=== PATIENT | female | born 2000 | race Hispanic/Latino ===

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

== ENCOUNTER 2019-11-24 21:06 | Emergency (ER) | payer BC, OTHER ==
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
--- NOTE | 2019-11-25 00:04 | EDPHYS ---
Physician Documentation [facility] Name: Aleena Zhao Age: 19 yrs Sex: Female : 2000 Arrival Date: 11/24/2019 Time: 21:07 Bed 7 Private MD: ED Physician Herrera Davidson HPI: 11/24 23:46 This 19 yrs old Female presents to ER via Ambulatory with complaints of Flu snw Symptoms - 17 wks preg. 23:46 Onset: The symptoms/episode began/occurred suddenly, last night. Associated signs and snw symptoms: Pertinent positives: cough, sore throat. Modifying factors: The patient symptoms are alleviated by nothing. The patient has not experienced similar symptoms in the past, but friend has similar symptoms. It is unknown whether or not the patient has recently seen a physician. significant other with flu last week. Historical: - Allergies: 21:59 No Known Allergies; ea - Home Meds: 21:59 Vitamin Oral [Active]; ea - PMHx: 21:59 Endometrosis; ea - PSHx: 21:59 None; ea - Immunization history:: Adult Immunizations up to date. - Social history:: Smoking status: Patient/guardian denies using tobacco. - Ebola Screening: : Patient denies travel to an Ebola-affected area in the 21 days before illness onset. ROS: 23:44 Eyes: Negative for injury, pain, redness, and discharge, ENT: Negative for injury, snw pain, and discharge, Neck: Negative for injury, pain, and swelling, Cardiovascular: Negative for chest pain, palpitations, and edema, Respiratory: Negative for shortness of breath, cough, wheezing, and pleuritic chest pain, Abdomen/GI: Negative for abdominal pain, nausea, vomiting, diarrhea, and constipation, Back: Negative for injury and pain, : Negative for injury, bleeding, discharge, and swelling, MS/Extremity: Negative for injury and deformity, Skin: Negative for injury, rash, and discoloration, Neuro: Negative for headache, weakness, numbness, tingling, and seizure. 23:44 Constitutional: Positive for body aches, malaise. Exam: 23:42 Head/Face: Normocephalic, atraumatic. Eyes: Pupils equal round and reactive to light, snw extra-ocular motions intact. Lids and lashes normal. Conjunctiva and sclera are non-icteric and not injected. Cornea within normal limits. Periorbital areas with no swelling, redness, or edema. ENT: Nares patent. No nasal discharge, no septal abnormalities noted. Tympanic membranes are normal and external auditory canals are clear. Oropharynx with no redness, swelling, or masses, exudates, or evidence of obstruction, uvula midline. Mucous membranes moist. Neck: Trachea midline, no thyromegaly or masses palpated, and no cervical lymphadenopathy. Supple, full range of motion without nuchal rigidity, or vertebral point tenderness. No Meningismus. Chest/axilla: Normal chest wall appearance and motion. Nontender with no deformity. No lesions are appreciated. Cardiovascular: Regular rate and rhythm with a normal S1 and S2. No gallops, murmurs, or rubs. Normal PMI, no JVD. No pulse deficits. 23:42 Abdomen/GI: Soft, non-tender, with normal bowel sounds. No distension or tympany. No guarding or rebound. No evidence of tenderness throughout. Back: No spinal tenderness. No costovertebral tenderness. Full range of motion. Skin: Warm, dry with normal turgor. Normal color with no rashes, no lesions, and no evidence of cellulitis. MS/ Extremity: Pulses equal, no cyanosis. Neurovascular intact. Full, normal range of motion. Neuro: Awake and alert, GCS 15, oriented to person, place, time, and situation. Cranial nerves II-XII grossly intact. Motor strength 5/5 in all extremities. Sensory grossly intact. Cerebellar exam normal. Normal gait. Psych: Awake, alert, with orientation to person, place and time. Behavior, mood, and affect are within normal limits. 23:42 Constitutional: The patient appears alert, awake, uncomfortable. 23:42 Respiratory: moderate respiratory distress is noted, Respirations: normal, Breath sounds: are clear throughout, bronchitic cough. Vital Signs: 22:01 BP 117 / 63; Pulse 79; Resp 18; Temp 97.8; Pulse Ox 100% ; Weight 78.93 kg; Height 5 ea ft. 3 in. (160.02 cm); 11/25 00:22 BP 125 / 81; Pulse 73; Resp 16; Temp 97.9; Pulse Ox 99% on R/A; Pain 0/10; aa1 11/24 22:01 Body Mass Index 30.82 (78.93 kg, 160.02 cm) ea MDM: 11/24 23:04 Patient medically screened. [facility] 11/25 00:26 Data reviewed: vital signs, nurses notes. Data interpreted: Pulse oximetry: on room air snw is 99 %. Interpretation: normal. Counseling: I had a detailed discussion with the patient and/or guardian regarding: the historical points, exam findings, and any diagnostic results supporting the discharge/admit diagnosis, the presence of at least one elevated blood pressure reading (>120/80) during this emergency department visit, lab results, the need for outpatient follow up, to return to the emergency department if symptoms worsen or persist or if there are any questions or concerns that arise at home. Special discussion: I have referred the patient to see his PCP for further evaluation of high blood pressure. Based on the history and exam findings, there is no indication for further emergent testing or inpatient evaluation. I discussed with the patient/guardian the need to see the primary care provider for further evaluation of the symptoms. 11/24 22:00 Order name: Flu; Complete Time: 23:05 ea 11/24 22:06 Order name: Strep; Complete Time: 00:01 snw 11/24 22:06 Order name: Urine Culture snw 11/24 22:06 Order name: Urine Microscopic Only; Complete Time: 16:56 snw 11/24 23:05 Order name: Urine Dipstick--Ancillary (enter results); Complete Time: 16:56 mw2 11/24 23:05 Order name: Urine --Ancillary (enter results); Complete Time: 16:56 mw2 11/24 22:06 Order name: Urine Test (obtain specimen); Complete Time: 23:06 snw 11/24 22:06 Order name: Urine Dipstick-Ancillary (obtain specimen); Complete Time: 23:06 snw 11/25 00:01 Order name: Throat Culture EDMS Administered Medications: No medications were administered Disposition: 07:53 Co-signature as Attending Physician, Herrera Davidson MD I agree with the assessment and [facility] plan of care. Disposition: 11/25/19 00:02 Discharged to Home. Impression: Acute upper respiratory infection, unspecified. - Condition is Stable. - Discharge Instructions: Upper Respiratory Infection, Adult, Cool Mist Vaporizer, Rehydration, Adult. - Prescriptions for Zyrtec 10 mg Oral Tablet - take 1 tablet by ORAL route once daily As needed; 20 tablet. - Work release form, Medication Reconciliation Form, Thank You Letter, Antibiotic Education, Prescription Opioid Use form. - Follow up: Emergency Department; When: As needed; Reason: Worsening of condition. Follow up: Private Physician; When: 1 - 2 days; Reason: Recheck today's complaints, Continuance of care, Re-evaluation by your physician. Signatures: Dispatcher [employer] Sugey Jamison RN RN aa1 Herrera Davidson MD MD cha Therrien, Shelly, BLACK OFF WORKER-C BLACK OFF WORKER-Csnw Sofia Jett RN RN ea Corrections: (The following items were deleted from the chart) 00:24 00:02 11/25/2019 00:02 Discharged to Home. Impression: Acute upper respiratory aa1 infection, unspecified. Condition is Stable. Forms are Medication Reconciliation Form, Thank You Letter, Antibiotic Education, Prescription Opioid Use. Follow up: Emergency Department; When: As needed; Reason: Worsening of condition. Follow up: Private Physician; When: 1 - 2 days; Reason: Recheck today's complaints, Continuance of care, Re-evaluation by your physician. snw
[2019-11-25 01:34] VITALS: BP 125/81; TEMP 97.9; O2SAT 99
[2019-11-25 01:41] LABS: Urine Bacteria 20-50 /HPF (<20); Urine Culture Reflex Order NOT NEEDED; Urine RBC <5 /HPF (NONE SEEN)
[2019-11-25 01:42] LABS: Urine Blood TRACE (NEG); Urine Glucose NEGATIVE (NEG); Urine Protein NEGATIVE (NEG)
== END 2019-11-25 00:24 | disposition home or self-care (01) ==
LOC: ER 21:06
DX: O26.891 Other specified pregnancy related conditions, first trimester (principal); Z3A.01 Less than 8 weeks gestation of pregnancy
CPT/HCPCS: 81003; 81015; 81025; 87070; 87081; 87086; 87088; 87804; 99283

== ENCOUNTER 2021-08-25 06:12 | Emergency (ER) | payer OTHER ==
[2021-08-25 06:29] LABS: Urine Blood 1+ (Negative); Urine Glucose Negative (Negative); Urine Protein Negative (Negative); Urine Specific Gravity >=1.030 (1.005-1.030); Urine pH 5.5 (5.0-7.0)
[2021-08-25] MEDS ORDERED: NA CHLORIDE 0.9% 1,000 ML ONE (07:05)
[2021-08-25] MEDS ORDERED: ONDANSETRON 4 MG/2 ML VIAL ONE (07:05)
[2021-08-25] MEDS ORDERED: MORPHINE 4 MG/ML SYR ONE (07:06)
[2021-08-25 07:21] LABS: Absolute Lymphocytes (CBC) 2.6 K/uL (0.7-4.9); Basophils % 0.6 % (0-1.3); Hematocrit 38.1 % (36.0-45.0); Lymphocytes % 27.2 % (15.3-44.8); MPV 7.9 fL (7.6-11.3); RBC Red Blood Cell Count 4.03 M/uL (3.86-4.86)
[2021-08-25 07:43] LABS: ALT/SGPT 41 U/L (12-78); Alkaline Phosphatase 121 U/L (45-117); BUN Blood Urea Nitrogen 17 mg/dL (7-18); Bicarbonate 26 mmol/L (21-32); Bilirubin Direct < 0.1 mg/dL (0-0.2); Bilirubin Total 0.2 mg/dL (0.2-1.0); Glucose Level 103 mg/dL (74-106); Lipase 59 U/L (73-393); Protein, Total 7.6 g/dL (6.4-8.2); Sodium Level 140 mmol/L (136-145)
[2021-08-25 07:44] LABS: AST/SGOT 25 U/L (15-37)
--- NOTE | 2021-08-25 08:44 | RAD REPORT ---
EXAM DESCRIPTION: CTAbdomen Pelvis W Contrast - 08/25/2021 8:25 am CLINICAL HISTORY: Abdominal pain. ABD PAIN COMPARISON: No comparisons TECHNIQUE: Biphasic CT imaging of the abdomen and pelvis was performed with 100 ml non-ionic IV cont rast. All CT scans are performed using dose optimization technique as appropriate and may include automated exposure control or mA/KV adjustment according to patient size. FINDINGS: The lung bases are clear. The liver, spleen, pancreas, adrenal glands and kidneys are within normal limits. No bowel obstruction, free air, free fluid or abscess. The distal appendix is hazy and measures to 6 mm. No evidence of significant lymphadenopathy. No suspicious bony findings. IUD is present in the uterus. IMPRESSION: Distal appendix appears hazy and measures up to 6 mm. This is considered within normal r ifeanyi currently but recommend follow-up study in 24-48 hours with oral contrast if the patient symptom ology persists or progresses.
--- NOTE | 2021-08-25 10:00 | RAD REPORT ---
EXAM DESCRIPTION: US - Abdomen Exam Limited - 08/25/2021 7:20 am CLINICAL HISTORY: EPIGASTRIC PAIN COMPARISON: No comparisons FINDINGS: The gallbladder demonstrates no gallstones. No pericholecystic fluid or gallbladder wall t hickening. The common bile duct is normal measuring 3 mm.. The liver demonstrates no findings of intrahepatic biliary dilatation. IMPRESSION: Unremarkable examination.
--- NOTE | 2021-08-25 11:04 | EDPHYS ---
Physician Documentation [facility] Name: Aleena Zhao Age: 21 yrs Sex: Female : 2000 Arrival Date: 08/25/2021 Time: 06:16 Bed 16 Private MD: ED Physician Marcello Grier HPI: 08/25 06:57 This 21 yrs old Female presents to ER via Ambulatory with complaints of pm1 Abdominal Pain, Vomiting. 06:57 The patient presents with abdominal pain in the epigastric area. Onset: The pm1 symptoms/episode began/occurred 4 day(s) ago. The symptoms do not radiate. Associated signs and symptoms: Pertinent positives: nausea and vomiting, Pertinent negatives: chest pain, constipation, diarrhea, dysuria, fever, shortness of breath. The symptoms are described as achy. Modifying factors: The symptoms are alleviated by nothing, the symptoms are aggravated by nothing. Worse at night. Severity of pain: in the emergency department the pain is unchanged. The patient has not experienced similar symptoms in the past. The patient has not recently seen a physician. 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 - Social history:: Smoking status: Patient denies any tobacco usage or history of. ROS: 06:57 Constitutional: Negative for fever, chills, and weight loss, Cardiovascular: Negative pm1 for chest pain, palpitations, and edema, Respiratory: Negative for shortness of breath, cough, wheezing, and pleuritic chest pain. 06:57 Back: Negative for injury and pain, : Negative for injury, bleeding, discharge, and swelling, MS/Extremity: Negative for injury and deformity, Skin: Negative for injury, rash, and discoloration, Neuro: Negative for headache, weakness, numbness, tingling, and seizure. 06:57 Abdomen/GI: Positive for abdominal pain, nausea and vomiting, of the epigastric area, Negative for diarrhea, constipation. 06:57 All other systems are negative. Exam: 06:57 Constitutional: This is a well developed, well nourished patient who is awake, alert, pm1 and in no acute distress. Head/Face: Normocephalic, atraumatic. 06:57 Back: No spinal tenderness. No costovertebral tenderness. Full range of motion. Skin: Warm, dry with normal turgor. Normal color with no rashes, no lesions, and no evidence of cellulitis. MS/ Extremity: Pulses equal, no cyanosis. Neurovascular intact. Full, normal range of motion. 06:57 Eyes: Exam is negative for acute changes, Extraocular movements: intact throughout, Conjunctiva: no acute changes, no injection. 06:57 ENT: Exam is negative for acute changes, Mouth: no acute changes, Lips: normal, moist, Oral mucosa: normal, pink and intact, moist. 06:57 Cardiovascular: Rate: normal, Rhythm: regular, Pulses: no pulse deficits are appreciated, Edema: is not appreciated. 06:57 Respiratory: Exam negative for acute changes, respiratory distress, shortness of breath, Breath sounds: are clear throughout. 06:57 Abdomen/GI: Inspection: abdomen appears normal, Palpation: soft, in all quadrants, mild abdominal tenderness, in the epigastric area and suprapubic area. 06:57 Neuro: Exam negative for acute changes, Orientation: is normal, Mentation: is normal, Motor: is normal, moves all fours. Vital Signs: 06:30 BP 118 / 67 LA (auto/reg); Pulse 57; Resp 19; Temp 97.1; Pulse Ox 100% ; Weight 85.28 sj1 kg; Height 5 ft. 3 in. (160.02 cm); Pain 7/10; 08:31 BP 117 / 68; Pulse 74; Resp 18; Pulse Ox 100% on R/A; es2 10:59 BP 102 / 65; Pulse 77; Resp 18; Pulse Ox 100% on R/A; es2 06:30 Body Mass Index 33.30 (85.28 kg, 160.02 cm) 1 MDM: 06:26 Patient medically screened. pm1 09:06 Data reviewed: radiologic studies, CT scan, I have discussed the patient's pm1 presentation/case with the attending Emergency Department Physician; and as a result, I will pending U/S results, if they are negative I will discharge the patient home to return tomorrow for repeat CT abd pelvis with PO and IV contrast as recommended by radiologist for further evaluation and will educate her on return precautions. 11:01 Data reviewed: vital signs. Data interpreted: Pulse oximetry: on room air is 100 %. pm1 Interpretation: normal. Counseling: I had a detailed discussion with the patient and/or guardian regarding: the historical points, exam findings, and any diagnostic results supporting the discharge/admit diagnosis, lab results, radiology results, to return to the emergency department if symptoms worsen or persist or if there are any questions or concerns that arise at home, Return tomorrow morning for repeat CT with PO contrast. 11:45 ED course: Patient intends to return tomorrow to ER for her CT abdomen pelvis with pm1 contrast study around 9:00 tomorrow unless she returns sooner based on return precautions. 08/25 06:29 Order name: Urine Dipstick-Ancillary; Complete Time: 06:31 EDMS 08/25 06:31 Order name: Basic Metabolic Panel; Complete Time: 07:47 pm1 08/25 06:31 Order name: CBC with Diff; Complete Time: 07:28 pm1 08/25 06:31 Order name: Hepatic Function; Complete Time: 07:47 pm1 08/25 06:31 Order name: Lipase; Complete Time: 07:47 pm1 08/25 06:32 Order name: Urine --Ancillary (enter results); Complete Time: 08:15 eb 08/25 06:31 Order name: IV Saline Lock; Complete Time: 06:57 pm1 08/25 06:31 Order name: Labs collected and sent; Complete Time: 06:57 pm1 08/25 06:31 Order name: Urine Test (obtain specimen); Complete Time: 06:57 pm1 08/25 06:32 Order name: US Abdomen Limited; Complete Time: 10:44 pm1 08/25 06:32 Order name: CT Abd/Pelvis - IV Contrast Only; Complete Time: 08:46 pm1 08/25 06:32 Order name: NPO; Complete Time: 06:57 pm1 Administered Medications: 06:57 Drug: morphine 4 mg Route: IVP; Site: left antecubital; sj1 07:40 Follow up: Response: No adverse reaction es2 06:57 Drug: Zofran (Ondansetron) 4 mg Route: IVP; Site: left antecubital; sj1 07:40 Follow up: Response: No adverse reaction es2 06:57 Drug: NS 0.9% 1000 ml Route: IV; Rate: 1000 ml; Site: left antecubital; sj1 07:41 Follow up: Response: No adverse reaction es2 11:16 Follow up: IV Status: Completed infusion es2 Disposition Summary: 08/25/21 11:02 Discharge Ordered Location: Home pm1 Problem: new pm1 Symptoms: have improved pm1 Condition: Stable pm1 Diagnosis - Abdominal pain, unspecified pm1 Followup: pm1 - With: Emergency Department - When: Tomorrow - Reason: Recheck today's complaints, Continuance of care, Re-evaluation by your physician Followup: pm1 - With: Private Physician - When: 2 - 3 days - Reason: Recheck today's complaints, Continuance of care, Re-evaluation by your physician Discharge Instructions: - Discharge Summary Sheet pm1 - Abdominal Pain, Adult pm1 Forms: - Medication Reconciliation Form pm1 - Thank You Letter pm1 - Antibiotic Education pm1 - Prescription Opioid Use pm1 - Work release form eb Prescriptions: - ondansetron 4 mg Oral tablet,disintegrating - take 1 tablet by ORAL route every 8 hours As needed; 10 tablet; Refills: 0, pm1 Product Selection Permitted - dicyclomine 20 mg Oral Tablet - take 1 tablet by ORAL route every 6 hours As needed; 20 tablet; Refills: 0, pm1 Product Selection Permitted Addendum: 08/29/2021 05:31 Co-signature as Attending Physician, Marcello Grier MD. [facility] Signatures: Dispatcher [employer] EDLeonardo Salas, LORENZO MAINTENANCE INSTRUCTOR pm1 Marcello Grier MD MD 7 Nikki Velázquez RN RN sj1 Rosa Mayo RN RN es2
--- NOTE | 2021-08-25 11:04 | ER ---
Nurse's Notes [facility] Name: Aleena Zhao Age: 21 yrs Sex: Female : 2000 Arrival Date: 08/25/2021 Time: 06:16 Bed 16 Private MD: Diagnosis: Abdominal pain, unspecified Presentation: 08/25 06:30 Chief complaint: Patient states: report abd pain, nausea, vomiting x 4 days, estela at sj1 night. Coronavirus screen: Vaccine status: Patient reports receiving the 1st dose of the Covid vaccine. Ebola Screen: Patient negative for fever greater than or equal to 101.5 degrees Fahrenheit, and additional compatible Ebola Virus Disease symptoms Patient denies exposure to infectious person. Patient denies travel to an Ebola-affected area in the 21 days before illness onset. Initial Sepsis Screen: Does the patient meet any 2 criteria? No. Patient's initial sepsis screen is negative. Does the patient have a suspected source of infection? No. Patient's initial sepsis screen is negative. Risk Assessment: Do you want to hurt yourself or someone else? Patient reports no desire to harm self or others. Onset of symptoms was August 21, 2021. 06:30 Method Of Arrival: Ambulatory [facility] 06:30 Acuity: AME 3 sj1 Triage Assessment: 06:30 General: Appears uncomfortable, Behavior is cooperative, appropriate for age, crying. sj1 Pain: Complains of pain in abdomen Pain radiates to right leg and left leg Pain currently is 7 out of 10 on a pain scale. Quality of pain is described as crampy, sharp, Pain began 4 days ago Is intermittent. EENT: No deficits noted. Neuro: No deficits noted. Cardiovascular: No deficits noted. Respiratory: No deficits noted. GI: Reports upper abdominal pain, nausea, vomiting. 06:30 : No deficits noted. Derm: No deficits noted. Musculoskeletal: No deficits noted. 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 - Social history:: Smoking status: Patient denies any tobacco usage or history of. Screenin:37 Abuse screen: Denies threats or abuse. Denies injuries from another. Nutritional sj1 screening: No deficits noted. Tuberculosis screening: No symptoms or risk factors identified. Fall Risk None identified. Assessment: 06:37 GI: Abd is soft and non tender X 4 quads. sj1 08:05 Reassessment: Pt sleeping. es2 10:20 Reassessment: Patient and/or family updated on plan of care and expected duration. Pain es2 level reassessed. Patient is alert, oriented x 3, equal unlabored respirations, skin warm/dry/pink. General: Appears in no apparent distress. Pain: Complains of pain in abdomen Pain currently is 4 out of 10 on a pain scale. GI: Bowel sounds. Vital Signs: 06:30 BP 118 / 67 LA (auto/reg); Pulse 57; Resp 19; Temp 97.1; Pulse Ox 100% ; Weight 85.28 sj1 kg; Height 5 ft. 3 in. (160.02 cm); Pain 7/10; 08:31 BP 117 / 68; Pulse 74; Resp 18; Pulse Ox 100% on R/A; es2 10:59 BP 102 / 65; Pulse 77; Resp 18; Pulse Ox 100% on R/A; es2 06:30 Body Mass Index 33.30 (85.28 kg, 160.02 cm) sj1 ED Course: 06:16 Patient arrived in ED. wm 06:24 Leonardo Amaro NP is PHCP. pm1 06:24 Marcello Grier MD is Attending Physician. pm1 06:30 Arm band placed on Patient placed in an exam room. sj1 06:32 Triage completed. sj1 06:37 Patient has correct armband on for positive identification. Bed in low position. Call sj1 light in reach. Side rails up X 1. 06:58 Inserted saline lock: 20 gauge in left antecubital area, using aseptic technique. Blood sj1 collected. 07:20 US Abdomen Limited In Process Unspecified. EDMS 07:40 Rosa Mayo RN is Primary Nurse. es2 07:40 Urine --Ancillary (enter results) Sent. es2 07:47 No provider procedures requiring assistance completed. es2 08:25 CT Abd/Pelvis - IV Contrast Only In Process Unspecified. EDMS 11:15 IV discontinued, intact, bleeding controlled, No redness/swelling at site. Pressure es2 dressing applied. Administered Medications: 06:57 Drug: morphine 4 mg Route: IVP; Site: left antecubital; sj1 07:40 Follow up: Response: No adverse reaction es2 06:57 Drug: Zofran (Ondansetron) 4 mg Route: IVP; Site: left antecubital; sj1 07:40 Follow up: Response: No adverse reaction es2 06:57 Drug: NS 0.9% 1000 ml Route: IV; Rate: 1000 ml; Site: left antecubital; sj1 07:41 Follow up: Response: No adverse reaction es2 11:16 Follow up: IV Status: Completed infusion es2 Outcome: 11:02 Discharge ordered by . pm1 11:14 Discharged to home ambulatory. es2 11:14 Condition: stable 11:14 Discharge instructions given to patient, Instructed on discharge instructions, medication usage, Demonstrated understanding of instructions, medications, Prescriptions given X 2. 11:16 Patient left the ED. es2 Signatures: Dispatcher [employer] EDMS Leonardo Amaro NP [employer] pm1 Yari العلي Sade, RN RN sj1 Rosa Mayo RN RN es2
[2021-08-25 11:35] VITALS: TEMP 97.1; O2SAT 100
[2021-08-25 11:38] VITALS: BP 102/65
== END 2021-08-25 11:16 | disposition home or self-care (01) ==
LOC: ER 06:12
DX: R10.9 Unspecified abdominal pain (principal)
CPT/HCPCS: 96361; 85025; 80048; 36415; 81025; 80076; 81003; 83690; 74177; 76705; 96375; 96374; 99284; Q9967; J7030; J2405

== ENCOUNTER 2021-08-26 05:40 | Emergency (ER) | payer OTHER ==
[2021-08-26 06:13] LABS: Basophils % 0.6 % (0-1.3); Hematocrit 38.6 % (36.0-45.0); Lymphocytes % 33.4 % (15.3-44.8); MPV 7.7 fL (7.6-11.3); RBC Red Blood Cell Count 4.08 M/uL (3.86-4.86)
[2021-08-26 06:25] LABS: ALT/SGPT 36 U/L (12-78); AST/SGOT 15 U/L (15-37); Albumin 3.7 g/dL (3.4-5.0); Alkaline Phosphatase 106 U/L (45-117); BUN Blood Urea Nitrogen 15 mg/dL (7-18); Bicarbonate 26 mmol/L (21-32); Bilirubin Direct < 0.1 mg/dL (0-0.2); Bilirubin Total 0.2 mg/dL (0.2-1.0); Glucose Level 109 mg/dL (74-106); Lipase 74 U/L (73-393); Protein, Total 7.1 g/dL (6.4-8.2); Sodium Level 140 mmol/L (136-145)
[2021-08-26 06:32] LABS: Urine Blood Trace-intact (Negative); Urine Glucose Negative (Negative); Urine Protein Negative (Negative); Urine Specific Gravity >=1.030 (1.005-1.030)
[2021-08-26] MEDS ORDERED: ONDANSETRON 4 MG/2 ML VIAL ONE ×2 (06:42→08:18)
[2021-08-26] MEDS ORDERED: NA CHLORIDE 0.9% 1,000 ML ONE (06:42)
[2021-08-26 07:15] LABS: Urine Bacteria <20 /HPF (<20); Urine Mucus 1+ /HPF (NONE SEEN); Urine RBC <5 /HPF (NONE SEEN)
[2021-08-26] MEDS ORDERED: FENTANYL CITR 100 MCG/2 ML ONE (08:13)
--- NOTE | 2021-08-26 08:29 | RAD REPORT ---
EXAM DESCRIPTION: CT - Abdomen Pelvis W Contrast - 08/26/2021 8:14 am CLINICAL HISTORY: ABD PAIN, patient details upper abdominal pain and both right lower quadrant and l eft lower quadrant pain, patient details history of endometriosis and polycystic ovary syndrome COMPARISON: Abdomen Pelvis W Contrast dated 08/25/2021 TECHNIQUE: Biphasic, helical CT imaging of the abdomen and pelvis was performed following 100 ml non -ionic IV contrast. Oral contrast was given. All CT scans are performed using dose optimization technique as appropriate and may include automated exposure control or mA/KV adjustment according to patient size. FINDINGS: No suspicious findings in the lung bases. The liver, spleen, and pancreas show no suspicious findings. Gallbladder and biliary tree are also wi thout suspicious finding. Symmetric renal function is seen with no hydronephrosis or suspicious renal mass. No pyelonephritis o r acute parenchymal process. No bladder abnormalities. No adrenal abnormalities. The appendix remains normal size is 6 mm. Contrast has extended into the base. No periappendiceal str anding or other finding to suspect progressive appendiceal process. Patient does have a few small mes enteric lymph nodes in the right lower quadrant and central abdomen. Stomach, small bowel and colon are otherwise unremarkable. Stool volume in the colon is moderate. No uterine or left ovarian significant finding. Well-positioned IUD is noted. Approximately 2.5 centi meter right ovarian cyst is evident. No cyst rupture or hemorrhage. No endometrioma identified. Endom etriosis can be occult on CT imaging. No free air, free fluid or inflammatory stranding. No hernia, mass or bulky lymphadenopathy. No suspicious bony findings. IMPRESSION: Appendix remains normal size with no new or progressive findings. Appendicitis is not c urrently suspected. Right ovarian cyst is present but no cyst rupture or hemorrhage findings are seen. No endometrioma id entified. Endometriosis can be occult on CT imaging. A few small mesenteric lymph nodes are present and nonspecific.
--- NOTE | 2021-08-26 09:05 | ER ---
Nurse's Notes [facility] Name: Aleena Zhao Age: 21 yrs Sex: Female : 2000 Arrival Date: 08/26/2021 Time: 05:41 Bed 18 Private MD: Diagnosis: Other ovarian cysts;Nonspecific mesenteric lymphadenitis Presentation: 08/26 05:54 Chief complaint: Patient states: Reports upper abdominal pain, RLQ, and LLQ pain, lower lp1 back pain that began about 1 week ago; States seen in ER yesterday and told to return if abdominal pain continued; reports pain and nausea; denies urinary symptoms. Coronavirus screen: At this time, the client does not indicate any symptoms associated with coronavirus-19. Ebola Screen: No symptoms or risks identified at this time. Initial Sepsis Screen: Does the patient meet any 2 criteria? No. Patient's initial sepsis screen is negative. Does the patient have a suspected source of infection? No. Patient's initial sepsis screen is negative. Risk Assessment: Do you want to hurt yourself or someone else? Patient reports no desire to harm self or others. Onset of symptoms was August 26, 2021. 05:54 Method Of Arrival: Ambulatory lp1 05:54 Acuity: AME 3 lp1 Triage Assessment: 06:04 General: Appears in no apparent distress. Behavior is calm, cooperative, appropriate sj1 for age. Pain: Denies pain. Complains of pain in abdomen Pain radiates to back Pain currently is 6 out of 10 on a pain scale. at worst was 10 out of 10 on a pain scale. Quality of pain is described as sharp, shooting. EENT: No deficits noted. Neuro: No deficits noted. Cardiovascular: No deficits noted. Respiratory: No deficits noted. GI: Reports lower abdominal pain, constipation, nausea. : No deficits noted. Derm: No deficits noted. Musculoskeletal: No deficits noted. DIETARY AID: 05:57 LMP N/A - Irregular menses lp1 Historical: - Allergies: 05:56 No Known Allergies; lp1 - Home Meds: 05:56 None [Active]; lp1 - PMHx: 05:56 Endometrosis; lp1 05:56 PCOS; Asthma; lp1 - PSHx: 05:56 None; lp1 - Immunization history:: Adult Immunizations up to date. - Social history:: Smoking status: Patient denies any tobacco usage or history of. Screenin:56 Abuse screen: Denies threats or abuse. Denies injuries from another. Nutritional lp1 screening: No deficits noted. Tuberculosis screening: No symptoms or risk factors identified. Fall Risk None identified. Assessment: 06:05 GI: Abd is soft and non tender X 4 quads. sj1 06:39 Reassessment: ORAL CONTRAST COMPLETED - CT CALLED AND AWARE. sj1 07:29 Reassessment: assumed care of pt resting comfortably in bed, previously medicated. tr6 pending CT scan after PO contrast. will continue to monitor. 09:09 Reassessment: pt reports that she feels much better than she did previously. ISMAEL Amaro tr6 informed pt of all results and POC. Vital Signs: 05:54 BP 108 / 64; Pulse 56; Resp 16; Temp 97.7(TE); Pulse Ox 99% on R/A; Weight 85.28 kg lp1 (R); Height 5 ft. 3 in. (160.02 cm); Pain 6/10; 08:00 BP 119 / 62; Pulse 62; Resp 18; Pulse Ox 100% on R/A; Pain 10/10; tr6 05:54 Body Mass Index 33.30 (85.28 kg, 160.02 cm) lp1 ED Course: 05:41 Patient arrived in ED. wm 05:56 Triage completed. lp1 05:56 Arm band placed on. lp1 05:57 Patient has correct armband on for positive identification. lp1 06:03 Leonardo Amaro NP is PHCP. pm1 06:05 Door closed. Noise minimized. Lights dimmed. Warm blanket given. sj1 06:05 Inserted saline lock: 20 gauge in right forearm, using aseptic technique. Blood sj1 collected. 06:08 Casa Boyce MD is Attending Physician. pm1 06:27 Urine Microscopic Only Sent. sj1 07:13 Griselda Feliz, MIKIE is Primary Nurse. tr6 07:30 No provider procedures requiring assistance completed. tr6 08:[address] via stretcher. tr6 08:14 CT Abd/Pelvis - PO and IV Contrast In Process Unspecified. EDMS 08:19 Patient taken to an exam room. tr6 09:11 IV discontinued, intact, bleeding controlled, No redness/swelling at site. Pressure tr6 dressing applied. Administered Medications: 06:13 Not Given (Patient Refused): morphine 4 mg IVP once; RASS on ADMIN: Combtv4, Very sj1 Agttd3, Agttd2, Rstlss1, AlertClm0, Drwsy-1, Lt Sdtn-2, Mod Sdtn-3, Dp Sdtn-4, UnArsble-5 06:25 Drug: Zofran (Ondansetron) 4 mg Route: IVP; Site: left forearm; sj1 06:25 Drug: NS 0.9% 1000 ml Route: IV; Rate: 1000 ml; Site: right forearm; sj1 08:04 Drug: Zofran (Ondansetron) 4 mg Route: IVP; Site: right forearm; tr6 09:02 Follow up: Response: No adverse reaction tr6 08:05 Drug: fentaNYL (PF) 25 mcg Route: IVP; Site: right forearm; tr6 09:02 Follow up: Response: Pain is decreased tr6 09:09 Drug: Ketorolac 15 mg Route: IVP; Site: right hand; tr6 09:09 Drug: Bentyl (dicyclomine) 20 mg Route: PO; tr6 Outcome: 09:04 Discharge ordered by . pm1 09:09 Discharged to home ambulatory, pt refused wheelchair at this time tr6 09:09 Condition: improved 09:09 Discharge instructions given to patient, Instructed on discharge instructions, follow up and referral plans. medication usage, safety practices, Demonstrated understanding of instructions, follow-up care, medications. 09:21 Patient left the ED. tr6 Signatures: Dispatcher [employer] EDMS Dominga Francis, RN RN lp1 Leonardo Amaro, LORENZO GUSSET FOLDER pm1 Griselda Feliz RN RN tr6 Yari العلي Sade, RN RN sj1 Corrections: (The following items were deleted from the chart) 08:27 06:26 CORONAVIRUS+ drawn and sent. sj1 EDMS
--- NOTE | 2021-08-26 09:05 | EDPHYS ---
Physician Documentation [facility] Name: Aleena Zhao Age: 21 yrs Sex: Female : 2000 Arrival Date: 08/26/2021 Time: 05:41 Bed 18 Private MD: ED Physician Casa Boyce HPI: 08/26 06:09 This 21 yrs old Female presents to ER via Ambulatory with complaints of pm1 Abdominal Pain. 06:09 The patient presents with abdominal pain in the epigastric area, right lower quadrant, pm1 in the left lower quadrant. Onset: The symptoms/episode began/occurred 1 week(s) ago, and became worse yesterday. The symptoms do not radiate. Associated signs and symptoms: Pertinent positives: nausea, vomiting, right flank pain, Pertinent negatives: diarrhea, dysuria, fever. The symptoms are described as achy. Modifying factors: The symptoms are alleviated by nothing, the symptoms are aggravated by nothing. Severity of pain: in the emergency department the pain is unchanged. The patient has not experienced similar symptoms in the past. The patient has been recently seen at the [facility] Emergency Department, yesterday, for similar complaints labs were performed, CT scan was performed, the patient was told to return for a recheck, today. 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 - Social history:: Smoking status: Patient denies any tobacco usage or history of. ROS: 06:09 Constitutional: Negative for fever, chills, and weight loss, Cardiovascular: Negative pm1 for chest pain, palpitations, and edema, Respiratory: Negative for shortness of breath, cough, wheezing, and pleuritic chest pain. 06:09 Back: Negative for injury and pain, MS/Extremity: Negative for injury and deformity, Skin: Negative for injury, rash, and discoloration. 06:09 : Negative for injury, bleeding, discharge, and swelling, Neuro: Negative for headache, weakness, numbness, tingling, and seizure. 06:09 Abdomen/GI: Positive for abdominal pain, nausea and vomiting, Negative for diarrhea, constipation. 06:09 All other systems are negative. Exam: 06:09 Constitutional: This is a well developed, well nourished patient who is awake, alert, pm1 and in no acute distress. Head/Face: Normocephalic, atraumatic. 06:09 Skin: Warm, dry with normal turgor. Normal color with no rashes, no lesions, and no evidence of cellulitis. MS/ Extremity: Pulses equal, no cyanosis. Neurovascular intact. Full, normal range of motion. 06:09 Eyes: Exam is negative for acute changes, Extraocular movements: no acute changes, Conjunctiva: no acute changes, no injection, Sclera: no acute changes, icterus, is not appreciated. 06:09 ENT: Exam is negative for acute changes, Mouth: Lips: normal, moist, Oral mucosa: normal, pink and intact, moist. 06:09 Cardiovascular: Exam negative for acute changes, Rate: normal, Rhythm: regular, Pulses: no pulse deficits are appreciated. 06:09 Respiratory: Exam negative for acute changes, respiratory distress, shortness of breath. 06:09 Abdomen/GI: Inspection: abdomen appears normal, Palpation: soft, in all quadrants, mild abdominal tenderness, in the epigastric area, moderate abdominal tenderness, in the suprapubic area and right lower quadrant. 06:09 Back: pain, that is mild, of the right low back, normal spinal alignment noted. 06:09 Neuro: Exam negative for acute changes, Orientation: is normal, Mentation: is normal, Motor: is normal, moves all fours. Vital Signs: 05:54 BP 108 / 64; Pulse 56; Resp 16; Temp 97.7(TE); Pulse Ox 99% on R/A; Weight 85.28 kg lp1 (R); Height 5 ft. 3 in. (160.02 cm); Pain 6/10; 08:00 BP 119 / 62; Pulse 62; Resp 18; Pulse Ox 100% on R/A; Pain 10/10; tr6 05:54 Body Mass Index 33.30 (85.28 kg, 160.02 cm) lp1 MDM: 06:03 Patient medically screened. pm1 07:04 Data reviewed: vital signs. Data interpreted: Pulse oximetry: on room air is 99 %. pm1 Interpretation: normal. 09:00 Counseling: I had a detailed discussion with the patient and/or guardian regarding: the pm1 historical points, exam findings, and any diagnostic results supporting the discharge/admit diagnosis, lab results, radiology results, the need for outpatient follow up, an OB/Gyne specialist, to return to the emergency department if symptoms worsen or persist or if there are any questions or concerns that arise at home. 09:00 ED course: Patient was prescribed Bentyl yesterday but did not fill it yet. Patient pm1 reports she is not supposed to take NSAIDs because she used too much in the past . Bun/Cr within normal limits here. Will give patient Toradol and Bentyl here prior to discharge. If Bentyl effective she can fill the prescription from yesterday. 09:00 Differential diagnosis: appendicitis, cholecystitis, diverticulitis, non-specific abd pm1 pain, Ovarian cyst. 09:04 ED course: Patient has upcoming appointment with her service member next week. pm1 08/26 05:48 Order name: Basic Metabolic Panel; Complete Time: 06:43 08/26 05:48 Order name: CBC with Diff; Complete Time: 06:16 rn 08/26 05:48 Order name: Hepatic Function; Complete Time: 06:43 rn 08/26 05:48 Order name: Lipase; Complete Time: 06:43 08/26 06:17 Order name: Urine Microscopic Only; Complete Time: 07:23 pm1 08/26 06:05 Order name: CT Abd/Pelvis - PO and IV Contrast; Complete Time: 08:32 pm1 08/26 06:32 Order name: Urine Dipstick-Ancillary; Complete Time: 06:43 EDCO 08/26 06:39 Order name: Urine --Ancillary (enter results) eb 08/26 06:39 Order name: Urine --Ancillary; Complete Time: 07:23 EDCO 08/26 09:19 Order name: SARS-COV-2 RT PCR EDCO 08/26 05:48 Order name: IV Saline Lock; Complete Time: 06:07 rn 08/26 05:48 Order name: Labs collected and sent; Complete Time: 06:07 rn 08/26 06:08 Order name: NPO; Complete Time: 06:26 pm1 08/26 06:17 Order name: Urine Dipstick-Ancillary (obtain specimen); Complete Time: 06:28 pm1 08/26 06:17 Order name: Urine Test (obtain specimen); Complete Time: 06:28 pm1 Administered Medications: 06:13 Not Given (Patient Refused): morphine 4 mg IVP once; RASS on ADMIN: Combtv4, Very sj1 Agttd3, Agttd2, Rstlss1, AlertClm0, Drwsy-1, Lt Sdtn-2, Mod Sdtn-3, Dp Sdtn-4, UnArsble-5 06:25 Drug: Zofran (Ondansetron) 4 mg Route: IVP; Site: left forearm; sj1 06:25 Drug: NS 0.9% 1000 ml Route: IV; Rate: 1000 ml; Site: right forearm; sj1 08:04 Drug: Zofran (Ondansetron) 4 mg Route: IVP; Site: right forearm; tr6 09:02 Follow up: Response: No adverse reaction tr6 08:05 Drug: fentaNYL (PF) 25 mcg Route: IVP; Site: right forearm; tr6 09:02 Follow up: Response: Pain is decreased tr6 09:09 Drug: Ketorolac 15 mg Route: IVP; Site: right hand; tr6 09:09 Drug: Bentyl (dicyclomine) 20 mg Route: PO; tr6 Disposition: 22:24 Co-signature as Attending Physician, Casa Boyce MD I agree with the assessment and rn plan of care. Attestation: The patient's history, exam findings, diagnostics, and a summary of any interventions or procedures was reviewed in detail with Leonardo Amaro NP. Disposition Summary: 08/26/21 09:04 Discharge Ordered Location: Home pm1 Problem: new pm1 Symptoms: have improved pm1 Condition: Stable pm1 Diagnosis - Other ovarian cysts pm1 - Nonspecific mesenteric lymphadenitis pm1 Followup: pm1 - With: Emergency Department - When: As needed - Reason: Worsening of condition Followup: pm1 - With: Private Physician - When: 2 - 3 days - Reason: Recheck today's complaints, Continuance of care, Re-evaluation by your physician Discharge Instructions: - Discharge Summary Sheet pm1 - Ovarian Cyst pm1 - Mesenteric Adenitis, Adult pm1 Forms: - Medication Reconciliation Form pm1 - Thank You Letter pm1 - Antibiotic Education pm1 - Prescription Opioid Use pm1 Signatures: Dispatcher [employer] EDMS Casa Boyce MD MD rn Pena, Laura RN RN lp1 Leonardo Amaro, SIDE SHOW ENTERTAINER SIDE SHOW ENTERTAINER pm1 Griselda Feliz RN RN tr6 Nikki Velázquez RN RN sj1 Corrections: (The following items were deleted from the chart) 08:27 06:17 CORONAVIRUS+MR.LAB.BRZ ordered. EDMS EDMS
[2021-08-26] MEDS ORDERED: KETOROLAC 30 MG/ML INJ ONE (09:29)
[2021-08-26] MEDS ORDERED: DICYCLOMINE HCL 10 MG CAP ONE (09:29)
[2021-08-26 09:41] VITALS: TEMP 97.7
[2021-08-26 09:42] VITALS: BP 119/62; O2SAT 100
== END 2021-08-26 09:21 | disposition home or self-care (01) ==
LOC: ER 05:40
DX: N83.299 Other ovarian cyst, unspecified side (principal); I88.0 Nonspecific mesenteric lymphadenitis; Z20.822 Contact with and (suspected) exposure to COVID-19
CPT/HCPCS: 85025; 80048; 36415; 81025; 80076; 83690; 74177; 99284; U0003; Q9967; J3010; J7030; J2405 ×2; 81003; 81015

== ENCOUNTER 2023-10-20 16:00 | Emergency (ER) | payer OTHER ==
--- OUTSIDE RECORDS SUMMARY | 2023-10-20 16:04 | XMS REPORT | Continuity of Care Document ---
:1999 Author Organization [facility] t Address [address] [place] [address] Care Team Providers Name Role Phone PAM ZARAGOZA Primary Care Physician Unavailable Bruno Alvarenga Attending Clinician Unavailable TIFFANY OLIVO Attending Clinician Unavailable Doctor Unassigned, [place] Attending Clinician Unavailable EVANS GUSMAN Attending Clinician Unavailable EVANS GUSMAN Attending Clinician Unavailable Evans Gusman MD Attending Clinician Tiffany Olivo MD Attending Clinician Ana Talley MD Attending Clinician ANA TALLEY Attending Clinician Unavailable STANISLAV BRENNAN Attending Clinician Unavailable Stanislav Chopra Attending Clinician Delano Wright DO Attending Clinician DELANO WRIGHT Attending Clinician Unavailable ZAK ASIF M.D. Attending Clinician Unavailable OSIRIS OLMOS Attending Clinician Unavailable Bruno Alvarenga Admitting Clinician Unavailable ANU, STANISLAV B Admitting Clinician Unavailable DELANO WRIGHT Admitting Clinician Unavailable Payers Payer Name Policy Type Policy Number Effective Date Expiration Date Pearl mcdowell [facility] [id number] 2021 00:00:00 Problems Condition Condition Condition Status Onset Resolution Last Treating Co mments Source Name Details Category Date Date Treatment Clinician Date Leukorrhea Leukorrhea Disease Active U nivers , not , not 12-31 [place] infective infective Bran ch Dysuria Dysuria Disease Active Univers 1 ity of 00:00: [place] 00 Medical Branch Pelvic Pelvic Disease Active Univers pain pain 12-31 ity of 00:00: [place] 00 Medical Branch Nexplanon Nexplanon Disease Active Uni vers in place in place 07-03 ity of 00:00: [place] 00 Medical Branch Dyspareuni Other Problem [place] a specified OBGYN dyspareuni 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, 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 Ovarian Ovarian Problem [place] dysfunctio Dysfunctio [employer] n n Polycystic PCOS Problem [place] ovaries (polycysti OBGYN c ovarian syndrome) Amenorrhea Amenorrhea Problem P laza OBGYN Intermenst Excessive Problem Pl aza rual and OBGYN bleeding - frequent irregular menstruati on with irregular cycle 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 Endometrio Endometrio Problem [facility] sis sis OBGYN Dysmenorrh Dysmenorrh Problem [facility] ea ea OBGYN Dysfunctio Dysfunctio Problem [facility] nal nal OBGYN uterine Uterine bleeding Bleeding Psychologi Dyspareuni Problem P laza c a not due OBGYN dyspareuni to a a substance or known physiologi madisyn condition Problem Active [facility] consult consult Physici ans Allergies, Adverse Reactions, Alerts Allergy Allergy Status Severity Reaction(s) Onset Inactive Treating Comm ents Source Name Type Date Date Clinician No Known DA Active U 2019-12 [facility] [place] No Known DA Active U 2019-12 [facility] 1-25 [facility] 00 [facility] No Known DA Active U 2019- [facility] Allergie 3-20 [facility] 00 [facility] No Known DA Active U 2019- [facility] Allergie 3-20 [facility]: [facility] 00 [facility] No Known DA Active U 2014-12 [facility] Allergie 2- [facility] 00:[facility]: [facility] 00 [facility] No Known DA Active U 2014-12 [facility] Allergie 2- [facility] 00:[facility]: [facility] 00 [facility] NO KNOWN Drug Active Univers ALLERGIE Class ity of S [facility] [place] [facility] Social History Social Habit Start Date Stop Date Quantity Comments Source Sex Assigned At [facility] YN History of [facility] Tobacco Use Exposure to 2022-10-18 2022-10-28 Not sure [facility]-CoV-2 00:00:00 13:37:00 [facility] (event) [place] Alcohol intake 2022-10-28 2022-10-28 0 /d University 00:00:00 00:00:00 [facility] [place] [facility] Tobacco use and 2022-10-28 2022-10-28 Smokeless tobacco Un iversity of exposure 00:00:00 00:00:00 non-user [facility] [place] [facility] Smoking Status Start Date Stop Date Source Never smoked tobacco [facility] Medications Ordered Filled Start Stop Current Ordering Indication Dosage Frequency Signature Comments Components Source Medication Medication Date Date Medication? Clinician (SIG) Name Name Provera 10 Provera 10 No 1{table QD Provera 10 MG MG 1-13 t_with_ MG 00:00: food} 00 Provera 10 Provera 10 No 1{table QD Provera 10 MG MG 1-13 t_with_ MG 00:00: food} 00 Provera 10 Provera 10 No 1{table QD Provera 10 MG MG 1-13 t_with_ MG 00:00: food} 00 Provera 10 Provera 10 No 1{table QD Provera 10 MG MG 1-13 t_with_ MG 00:00: food} 00 SUMAtriptan 2021-12- No 50mg Take 50 mg Univers 50 mg 1-28 11-28 by mouth ity of tablet 14:18: 00:00 as needed [place] 39 :00 for Medical Migraine. Branch SUMAtriptan 2021-12 No 50mg Take 50 mg Univers 50 mg 1-28 11-28 by mouth ity of tablet 14:18: 00:00 as needed [place] 39 :00 for Medical Migraine. Branch sumatriptan 2021-12 Yes [id number] 100mg Take 1 Univers 100 mg 1-28 tablet by ity of tablet 00:00: mouth as [place] 00 needed for Medical Migraine. Branch sumatriptan 2021-12 Yes [id number] 100mg Take 1 Univers 100 mg 1-28 tablet by ity of tablet 00:00: mouth as [place] 00 needed for Medical Migraine. Branch sumatriptan 2021-12 Yes [id number] 100mg Take 1 Univers 100 mg 1-28 tablet by ity of tablet 00:00: mouth as [place] 00 needed for Medical Migraine. Branch dulaglutide 2021-12 Yes inject Univ ers (TRULICITY) 1-21 under the ity of 0.75 mg/0.5 14:28: skin. [place] [address] Medical Branch SUMAtriptan 2021-12 Yes 50mg Take 50 mg Univers 50 mg 1-21 by mouth ity of tablet 14:28: as needed [place] 44 for Medical Migraine. Branch dulaglutide 2021-12 Yes inject Univ ers (TRULICITY) 1-21 under the ity of 0.75 mg/0.5 14:28: skin. [place] [address] Medical Branch SUMAtriptan 2021-12 Yes 50mg Take 50 mg Univers 50 mg 1-21 by mouth ity of tablet 14:28: as needed [place] 44 for Medical Migraine. Branch dulaglutide 2021-12 Yes inject Univ ers (TRULICITY) 1-21 under the ity of 0.75 mg/0.5 14:28: skin. [place] [address] Medical Branch dulaglutide 2021-12 Yes inject Univ ers (TRULICITY) 1-21 under the ity of 0.75 mg/0.5 14:28: skin. [place] [address] Medical Branch dulaglutide 2021-12 Yes inject Univ ers (TRULICITY) 1-21 under the ity of 0.75 mg/0.5 14:28: skin. [place] [address] Medical Branch NaCl 0.9% 2021- No 1000mL at 999 Uni vers (NS) IV 08-26 mL/hr, ity of infusion 07:45: 07:54 [place] 1,000 mL 00 :00 s, ONCE, 1 Medic al dose, On Branch 08/26/22 at 0245, Routine ketorolac 2021- No 60mg 60 mg, Unive rs (TORADOL) 08-26 Intramuscu ity of injection 07:15: 06:28 lar, ONCE, [place] 60 mg 00 :00 1 dose, On Medical Mon Branch 08/26/22 at 0215, Routine methocarbam 2021- No 1000mg 1,000 mg, Univers oL 08-26 Oral, ity of (ROBAXIN) 06:15: 06:16 ONCE, 1 [place] tablet 00 :00 dose, On Medical 1,000 mg Mon Branch 08/26/22 at 0115, ROSALEE methocarbam 2021-0 Yes [id number] 500mg Take 1 Univers oL 500 mg 9-26 tablet by ity o f tablet 00:00: mouth [place] 00 every 6 Medical (six) Branch hours as needed for Pain (scale 7-10) (MUSCLE SPASM). ketorolac 2021-0 Yes [id number] 10mg Take 1 U nivers 10 mg 9-26 tablet by ity of tablet 00:00: mouth [place] 00 every 6 Medical (six) Branch hours as needed for Pain (scale 7-10). methocarbam 2022-0 Yes [id number] 500mg Take 1 Univers oL 500 mg 9-26 tablet by ity o f tablet 00:00: mouth [place] 00 every 6 Medical (six) Branch hours as needed for Pain (scale 7-10) (MUSCLE SPASM). ketorolac 2022-0 Yes [id number] 10mg Take 1 U nivers 10 mg 9-26 tablet by ity of tablet 00:00: mouth [place] 00 every 6 Medical (six) Branch hours as needed for Pain (scale 7-10). methocarbam 2022-0 Yes [id number] 500mg Take 1 Univers oL 500 mg 9-26 tablet by ity o f tablet 00:00: mouth [place] 00 every 6 Medical (six) Branch hours as needed for Pain (scale 7-10) (MUSCLE SPASM). ketorolac 2022-0 Yes [id number] 10mg Take 1 U nivers 10 mg 9-26 tablet by ity of tablet 00:00: mouth [place] 00 every 6 Medical (six) Branch hours as needed for Pain (scale 7-10). methocarbam 2022-0 Yes [id number] 500mg Take 1 Univers oL 500 mg 9-26 tablet by ity o f tablet 00:00: mouth [place] 00 every 6 Medical (six) Branch hours as needed for Pain (scale 7-10) (MUSCLE SPASM). ketorolac 2022-0 Yes [id number] 10mg Take 1 U nivers 10 mg 9-26 tablet by ity of tablet 00:00: mouth [place] 00 every 6 Medical (six) Branch hours as needed for Pain (scale 7-10). methocarbam 2022-0 Yes [id number] 500mg Take 1 Univers oL 500 mg 9-26 tablet by ity o f tablet 00:00: mouth [place] 00 every 6 Medical (six) Branch hours as needed for Pain (scale 7-10) (MUSCLE SPASM). ketorolac 2022-0 Yes [id number] 10mg Take 1 U nivers 10 mg 9-26 tablet by ity of tablet 00:00: mouth [place] 00 every 6 Medical (six) Branch hours as needed for Pain (scale 7-10). methocarbam 2022-0 Yes [id number] 500mg Take 1 Univers oL 500 mg 9-26 tablet by ity o f tablet 00:00: mouth [place] 00 every 6 Medical (six) Branch hours as needed for Pain (scale 7-10) (MUSCLE SPASM). ketorolac 2022-0 Yes [id number] 10mg Take 1 U nivers 10 mg 9-26 tablet by ity of tablet 00:00: mouth [place] 00 every 6 Medical (six) Branch hours as needed for Pain (scale 7-10). methocarbam 2022-0 Yes [id number] 500mg Take 1 Univers oL 500 mg 9-26 tablet by ity o f tablet 00:00: mouth [place] 00 every 6 Medical (six) Branch hours as needed for Pain (scale 7-10) (MUSCLE SPASM). ketorolac 2022-0 Yes [id number] 10mg Take 1 U nivers 10 mg 9-26 tablet by ity of tablet 00:00: mouth [place] 00 every 6 Medical (six) Branch hours as needed for Pain (scale 7-10). methocarbam 2022-0 Yes [id number] 500mg Take 1 Univers oL 500 mg 9-26 tablet by ity o f tablet 00:00: mouth [place] 00 every 6 Medical (six) Branch hours as needed for Pain (scale 7-10) (MUSCLE SPASM). ketorolac 2-0 Yes [id number] 10mg Take 1 U nivers 10 mg 9-26 tablet by ity of tablet 00:00: mouth [place] 00 every 6 Medical (six) Branch hours as needed for Pain (scale 7-10). methocarbam 2022-0 Yes [id number] 500mg Take 1 Univers oL 500 mg 9-26 tablet by ity o f tablet 00:00: mouth [place] 00 every 6 Medical (six) Branch hours as needed for Pain (scale 7-10) (MUSCLE SPASM). ketorolac 2-0 Yes [id number] 10mg Take 1 U nivers 10 mg 9-26 tablet by ity of tablet 00:00: mouth [place] 00 every 6 Medical (six) Branch hours as needed for Pain (scale 7-10). HYDROcodone 2021- No 1{tbl} 1 tablet, Univers -acetaminop 8 08-05 Oral, ity of hen (NORCO 05:15: 06:29 ONCE, 1 [place] as 5) 5-325 mg 00 :00 dose, On Medi madisyn tablet 1 Fri07/05/22 Branc h tablet at 0015, ROSALEE Cyclobenzap Cyclobenzap 0 No TID Cyclobenza rine HCl 10 rine HCl 10 4-28 fernanda HCl MG MG 00:00: 10 MG 00 Cyclobenzap Cyclobenzap 2021-0 No TID Cyclobenza rine HCl 10 rine HCl 10 4-28 fernanda HCl MG MG 00:00: 10 MG 00 Cyclobenzap Cyclobenzap 2021-0 No TID Cyclobenza rine HCl 10 rine HCl 10 4-28 fernanda HCl MG MG 00:00: 10 MG 00 Cyclobenzap Cyclobenzap 2021-0 No TID Cyclobenza rine HCl 10 rine HCl 10 4-28 fernanda HCl MG MG 00:00: 10 MG 00 ondansetron 2021-0 Yes [id number] 4mg Take 1 Univers 4 mg 3-25 tablet by ity of disintegrat 00:00: mouth [place] ing tablet 00 every 8 Medica l (eight) Branch hours as needed for Nausea and Vomiting (N/V). ondansetron 2-0 Yes [id number] 4mg Take 1 Univers 4 mg 3-25 tablet by ity of disintegrat 00:00: mouth [place] ing tablet 00 every 8 Medica l (eight) Branch hours as needed for Nausea and Vomiting (N/V). ondansetron 2-0 Yes [id number] 4mg Take 1 Univers 4 mg 3-25 tablet by ity of disintegrat 00:00: mouth [place] ing tablet 00 every 8 Medica l (eight) Branch hours as needed for Nausea and Vomiting (N/V). ondansetron 2-0 Yes [id number] 4mg Take 1 Univers 4 mg 3-25 tablet by ity of disintegrat 00:00: mouth [place] ing tablet 00 every 8 Medica l (eight) Branch hours as needed for Nausea and Vomiting (N/V). ondansetron 2-0 Yes [id number] 4mg Take 1 Univers 4 mg 3-25 tablet by ity of disintegrat 00:00: mouth [place] ing tablet 00 every 8 Medica l (eight) Branch hours as needed for Nausea and Vomiting (N/V). ondansetron 2-0 Yes [id number] 4mg Take 1 Univers 4 mg 3-25 tablet by ity of disintegrat 00:00: mouth [place] ing tablet 00 every 8 Medica l (eight) Branch hours as needed for Nausea and Vomiting (N/V). ondansetron 2-0 Yes [id number] 4mg Take 1 Univers 4 mg 3-25 tablet by ity of disintegrat 00:00: mouth [place] ing tablet 00 every 8 Medica l (eight) Branch hours as needed for Nausea and Vomiting (N/V). ondansetron 2-0 Yes [id number] 4mg Take 1 Univers 4 mg 3-25 tablet by ity of disintegrat 00:00: mouth [place] ing tablet 00 every 8 Medica l (eight) Branch hours as needed for Nausea and Vomiting (N/V). ondansetron 2-0 Yes [id number] 4mg Take 1 Univers 4 mg 3-25 tablet by ity of disintegrat 00:00: mouth [place] ing tablet 00 every 8 Medica l (eight) Branch hours as needed for Nausea and Vomiting (N/V). ondansetron Yes [id number] 4mg Take 1 Univers 4 mg 3-25 tablet by ity of disintegrat 00:00: mouth [place] ing tablet 00 every 8 Medica l (eight) Branch hours as needed for Nausea and Vomiting (N/V). sucralfate 2021- No [id number] 1g Take 1 Univers 1 gram 3-25 08-05 tablet by ity of tablet 00:00: 00:00 mouth [place] 00 :00 before Medical meals and Branch at bedtime. dicyclomine 2021- No [id number] 10mg Take 1 Univers (BENTYL) 10 3-25 08-05 capsule by i ty of mg capsule 00:00: 00:00 mouth [place] 00 :00 every 8 Medical (eight) Branch hours as needed for Abdominal pain. Balcoltra Balcoltra 2020-12 No QD Balcoltra 0.1-20 0.1-20 0-22 0.1-20 MG-MCG(21) MG-MCG(21) 00:00: MG-MCG(21) 00 Balcoltra Balcoltra 2020-12 No QD Balcoltra 0.1-20 0.1-20 0-22 0.1-20 MG-MCG(21) MG-MCG(21) 00:00: MG-MCG(21) 00 Balcoltra Balcoltra 2020-12 No QD Balcoltra 0.1-20 0.1-20 0-22 0.1-20 MG-MCG(21) MG-MCG(21) 00:00: MG-MCG(21) 00 Balcoltra Balcoltra 2020-12 No QD Balcoltra 0.1-20 0.1-20 0-22 0.1-20 MG-MCG(21) MG-MCG(21) 00:00: MG-MCG(21) 00 Lo Loestrin Lo Loestrin No 1{table QD Lo Fe 1 MG-10 Fe 1 MG-10 6-29 t} Loestrin MCG / 10 MCG / 10 00:00: Fe 1 MG-10 MCG MCG 00 MCG / 10 MCG Lo Loestrin Lo Loestrin 2021-0 No 1{table QD Lo Fe 1 MG-10 Fe 1 MG-10 6-29 t} Loestrin MCG / 10 MCG / 10 00:00: Fe 1 MG-10 MCG MCG 00 MCG / 10 MCG Lo Loestrin Lo Loestrin 2021-0 No 1{table QD Lo Fe 1 MG-10 Fe 1 MG-10 6-29 t} Loestrin MCG / 10 MCG / 10 00:00: Fe 1 MG-10 MCG MCG 00 MCG / 10 MCG Lo Loestrin Lo Loestrin 2021-0 No 1{table QD Lo Fe 1 MG-10 Fe 1 MG-10 6-29 t} Loestrin MCG / 10 MCG / 10 00:00: Fe 1 MG-10 MCG MCG 00 MCG / 10 MCG Adipex-P Adipex-P 2021-0 No 1{capsu QD Adipex-P 37.5 MG 37.5 MG 5-06 le} 37.5 MG 00:00: 00 Adipex-P Adipex-P 2021-0 No 1{capsu QD Adipex-P 37.5 MG 37.5 MG 5-06 le} 37.5 MG 00:00: 00 Adipex-P Adipex-P 2021-0 No 1{capsu QD Adipex-P 37.5 MG 37.5 MG 5-06 le} 37.5 MG 00:00: 00 Adipex-P Adipex-P 2021-0 No 1{capsu QD Adipex-P 37.5 MG 37.5 MG 5-06 le} 37.5 MG 00:00: 00 Flagyl 500 Flagyl 500 2021-0 No 1{table BID Flagyl 500 MG MG 5-03 t} MG 00:00: 00 Flagyl 500 Flagyl 500 2021-0 No 1{table BID Flagyl 500 MG MG 5-03 t} MG 00:00: 00 Flagyl 500 Flagyl 500 2021-0 No 1{table BID Flagyl 500 MG MG 5-03 t} MG 00:00: 00 Flagyl 500 Flagyl 500 2021-0 No 1{table BID Flagyl 500 MG MG 5-03 t} MG 00:00: 00 Acetaminoph Acetaminoph 2020-1 No 1{table QID Acetaminop en-Codeine en-Codeine 1-23 t_as_ne hen-Codein #3 300-30 #3 300-30 00:00: eded} e #3 MG MG 00 300-30 MG Ibuprofen Ibuprofen 2019-12 No TID Ibuprofen 800 MG 800 MG 1-23 800 MG 00:00: 00 Acetaminoph Acetaminoph 2019- No 1{table QID Acetaminop en-Codeine en-Codeine 1-23 t_as_ne hen-Codein #3 300-30 #3 300-30 00:00: eded} e #3 MG MG 00 300-30 MG Ibuprofen Ibuprofen 2019-12 No TID Ibuprofen 800 MG 800 MG 1-23 800 MG 00:00: 00 Acetaminoph Acetaminoph 2019-12 No 1{table QID Acetaminop en-Codeine en-Codeine 1-23 t_as_ne hen-Codein #3 300-30 #3 300-30 00:00: eded} e #3 MG MG 00 300-30 MG Ibuprofen Ibuprofen 2019-12 No TID Ibuprofen 800 MG 800 MG 1-23 800 MG 00:00: 00 Ibuprofen Ibuprofen 2019-12 No TID Ibuprofen 800 MG 800 MG 1-23 800 MG 00:00: 00 Acetaminoph Acetaminoph 2019-12 No 1{table QID Acetaminop en-Codeine en-Codeine 1-23 t_as_ne hen-Codein #3 300-30 #3 300-30 00:00: eded} e #3 MG MG 00 300-30 MG Zoloft 50 Zoloft 50 2019-12 No 1{table QD Zoloft 50 MG MG 0-23 t} MG 00:00: 00 Zoloft 50 Zoloft 50 2019-12 No 1{table QD Zoloft 50 MG MG 0-23 t} MG 00:00: 00 Zoloft 50 Zoloft 50 2019- No 1{table QD Zoloft 50 MG MG 0-23 t} MG 00:00: 00 Zoloft 50 Zoloft 50 2019- No 1{table QD Zoloft 50 MG MG 0-23 t} MG 00:00: 00 Macrobid Macrobid 2019- No 1{capsu BID Macrobid 100 MG 100 MG 0-08 le} 100 MG 00:00: 00 Macrobid Macrobid 2020-1 No 1{capsu BID Macrobid 100 MG 100 MG 0-08 le} 100 MG 00:00: 00 Macrobid Macrobid 2020-1 No 1{capsu BID Macrobid 100 MG 100 MG 0-08 le} 100 MG 00:00: 00 Macrobid Macrobid 2020-1 No 1{capsu BID Macrobid 100 MG 100 MG 0-08 le} 100 MG 00:00: 00 Pepcid 20 Pepcid 20 2020-0 No BID Pepcid 20 MG MG 5-05 MG 00:00: 00 Pepcid 20 Pepcid 20 2020-0 No BID Pepcid 20 MG MG 5-05 MG 00:00: 00 Pepcid 20 Pepcid 20 2020-0 No BID Pepcid 20 MG MG 5-05 MG 00:00: 00 Pepcid 20 Pepcid 20 2020-0 No BID Pepcid 20 MG MG 5-05 MG 00:00: 00 Flagyl 500 Flagyl 500 2020-0 No 1{table BID Flagyl 500 MG MG 4-28 t} MG 00:00: 00 Flagyl 500 Flagyl 500 2020-0 No 1{table BID Flagyl 500 MG MG 4-28 t} MG 00:00: 00 Flagyl 500 Flagyl 500 2020-0 No 1{table BID Flagyl 500 MG MG 4-28 t} MG 00:00: 00 Flagyl 500 Flagyl 500 2020-0 No 1{table BID Flagyl 500 MG MG 4-28 t} MG 00:00: 00 CitraNatal CitraNatal 2018- No CitraNatal [place] 27 12-22 [place] mg iron-1 mg iron-1 00:00: mg iron-1 mg -50 mg -50 00 mg -50 mg-260 mg mg-260 mg mg-260 mg CitraNatal CitraNatal 2018- No CitraNatal [place] 27 12-22 [place] 27 mg iron-1 mg iron-1 00:00: mg iron-1 mg -50 mg -50 00 mg -50 mg-260 mg mg-260 mg mg-260 mg CitraNatal CitraNatal 2018-12 No CitraNatal [place] 27 12-22 [place] 27 mg iron-1 mg iron-1 00:00: mg iron-1 mg -50 mg -50 00 mg -50 mg-260 mg mg-260 mg mg-260 mg CitraNatal CitraNatal 2018-12 No CitraNatal [place] 27 1-22 [place] 27 mg iron-1 mg iron-1 00:00: mg iron-1 mg -50 mg -50 00 mg -50 mg-260 mg mg-260 mg mg-260 mg Prometrium Prometrium 2018-12 No Prometrium 200 MG 200 MG 0-25 200 MG 00:00: [facility]-12 No Bonjesta 20-20 mg 20-20 mg 0-25 20-20 mg 00:00: 00 Promethazin Promethazin 2018-12 No Promethazi e HCl 25 MG e HCl 25 MG 0-25 ne HCl 25 00:00: MG 00 Prometrium Prometrium 2018-12 No Prometrium 200 MG 200 MG 0-25 200 MG 00:00: 00 [facility]12 No Bonjesta 20-20 mg 20-20 mg 0-25 20-20 mg 00:00: 00 Promethazin Promethazin 2018-12 No Promethazi e HCl 25 MG e HCl 25 MG 0-25 ne HCl 25 00:00: MG 00 Prometrium Prometrium 2018-12 No Prometrium 200 MG 200 MG 0-25 200 MG 00:00: 00 [facility] 2018-12 No Bonjesta 20-20 mg 20-20 mg 0-25 20-20 mg 00:00: 00 Promethazin Promethazin 2018-12 No Promethazi e HCl 25 MG e HCl 25 MG 0-25 ne HCl 25 00:00: MG 00 Prometrium Prometrium 2018-12 No Prometrium 200 MG 200 MG 0-25 200 MG 00:00: 00 Promethazin Promethazin 2018-12 No Promethazi e HCl 25 MG e HCl 25 MG 0-25 ne HCl 25 00:00: MG 00 [facility] 2018-12 No Bonjesta 20-20 mg 20-20 mg 0-25 20-20 mg 00:00: 00 RhoGAM RhoGAM No RhoGAM Ultra-Filte Ultra-Filte Ultra-Filt red Plus red Plus ered Plus 1500 UNIT 1500 UNIT 1500 UNIT Lo Loestrin Lo Loestrin No Lo Fe Fe Loestrin Fe Liletta Liletta No Liletta Pantoprazol Pantoprazol No 1{table QD Pantoprazo e Sodium 40 e Sodium 40 t} le Sodium MG MG 40 MG Trulicity Trulicity No Trulicity Wellbutrin Wellbutrin No Wellbutrin Zofran Zofran No Zofran Lo Loestrin Lo Loestrin No Lo Fe Fe Loestrin Fe Trulicity Trulicity No Trulicity Pantoprazol Pantoprazol No 1{table QD Pantoprazo e Sodium 40 e Sodium 40 t} le Sodium MG MG 40 MG Wellbutrin Wellbutrin No Wellbutrin RhoGAM RhoGAM No RhoGAM Ultra-Filte Ultra-Filte Ultra-Filt red Plus red Plus ered Plus 1500 UNIT 1500 UNIT 1500 UNIT Liletta Saraetta No Liletta Lo Loestrin Lo Loestrin No Lo Fe Fe Loestrin Fe Trulicity Trulicity No Trulicity Pantoprazol Pantoprazol No 1{table QD Pantoprazo e Sodium 40 e Sodium 40 t} le Sodium MG MG 40 MG Wellbutrin Wellbutrin No Wellbutrin RhoGAM RhoGAM No RhoGAM Ultra-Filte Ultra-Filte Ultra-Filt red Plus red Plus ered Plus 1500 UNIT 1500 UNIT 1500 UNIT Kristen Peterson No Liletta Trulicity Trulicity No Trulicity Wellbutrin Wellbutrin No Wellbutrin RhoGAM RhoGAM No RhoGAM Ultra-Filte Ultra-Filte Ultra-Filt red Plus red Plus ered Plus 1500 UNIT 1500 UNIT 1500 UNIT Lo Loestrin Lo Loestrin No Lo Fe Fe Loestrin Fe Pantoprazol Pantoprazol No 1{table QD Pantoprazo e Sodium 40 e Sodium 40 t} le Sodium MG MG 40 MG Liletta Liletta No Sarasebas Vital Signs Vital Name Observation Time Observation Value Comments Source weight 2023-09-11 15:15:00 178 [lb_av] [facility] [employer] bmi 2023-09-11 15:15:00 31.53 kg/m2 [place] [employer] height 2023-09-11 15:15:00 63 [in_i] [facility] [employer] blood pressure 2023-09-11 15:15:00 114 mm[Hg] [facility] systolic blood pressure 2023-09-11 15:15:00 76 mm[Hg] [facility] diastolic weight 2023-01-21 14:15:00 182 [lb_av] [place] [employer] bmi 2023-01-21 14:15:00 32.24 kg/m2 [facility] [place] [employer] height 2023-01-21 14:15:00 63 [in_i] [facility] [employer] blood pressure 2023-01-21 14:15:00 110 mm[Hg] [facility] systolic blood pressure 2023-01-21 14:15:00 74 mm[Hg] [facility] diastolic weight 2022-12-13 09:00:00 190 [lb_av] [facility] [place] [employer] bmi 2022-12-13 09:00:00 33.65 kg/m2 [place] [employer] height 2022-12-13 09:00:00 63 [in_i] [facility] [employer] blood pressure 2022-12-13 09:00:00 117 mm[Hg] [facility] systolic blood pressure 2022-12-13 09:00:00 82 mm[Hg] [facility] diastolic Systolic blood 2022-10-28 19:54:00 108 mm[Hg] [facility] Diastolic blood 2022-10-28 19:54:00 74 mm[Hg] [facility] Heart rate 2022-10-28 19:54:00 55 [facility] 2022-10-28 19:54:00 160 cm [facility] Body weight 2022-10-28 19:54:00 87.998 [facility] BMI 2022-10-28 19:54:00 34.37 kg/m2 [facility] Oxygen saturation in 2022-10-28 19:54:00 96 /min [facility] Arterial blood by [facility] Pulse oximetry Branch Systolic blood 2022-10-21 20:45:00 113 mm[Hg] Univer sity of pressure [facility] [place] [facility] Diastolic blood 2022-10-21 20:45:00 73 mm[Hg] [facility] Heart rate 2022-10-21 20:45:00 68 /min [facility] [place] [facility] Oxygen saturation in 2022-10-21 20:45:00 100 /min University of Arterial blood by [place] [employer] madisyn Pulse oximetry Branch Body weight 2022-10-21 20:39:00 89.767 kg [facility] [place] [facility] BMI 2022-10-21 20:39:00 35.06 kg/m2 [facility] [place] [facility] Body temperature 2022-10-21 20:31:00 36.67 Karli [facility] [place] [facility] Respiratory rate 2022-10-21 20:31:00 17 /min [facility] [place] [facility] Body height 2022-10-21 20:31:00 160 cm [facility] [place] [facility] Systolic blood 2022-08-26 07:00:00 108 mm[Hg] Univer sity of pressure [place] [facility] Diastolic blood 2022-08-26 07:00:00 72 mm[Hg] Unive rsity of pressure [place] [facility] Heart rate 2022-08-26 07:00:00 67 /min [facility] [place] [facility] Respiratory rate 2022-08-26 07:00:00 16 /min [facility] [place] [facility] Oxygen saturation in 2022-08-26 07:00:00 98 /min [facility] Arterial blood by [facility] madisyn Pulse oximetry Branch Body temperature 2022-08-26 05:32:00 36.67 Karli [facility] [place] [facility] Body height 2022-08-26 05:32:00 160 cm [facility] Body weight 2022-08-26 05:32:00 90.719 kg [facility] [place] [facility] BMI 2022-08-26 05:32:00 35.43 kg/m2 [facility] Systolic blood 2022-07-05 05:02:00 115 mm[Hg] [facility] [place] [facility] Diastolic blood 2022-07-05 05:02:00 68 mm[Hg] [facility] [place] [facility] Heart rate 2022-07-05 05:02:00 77 /min [facility] Body temperature 2022-07-05 05:02:00 37.28 Karli [facility] [place] [facility] Respiratory rate 2022-07-05 05:02:00 18 /min [facility] [place] [facility] Body height 2022-07-05 05:02:00 160 cm [facility] Body weight 2022-07-05 05:02:00 88.451 kg [facility] BMI 2022-07-05 05:02:00 34.54 kg/m2 [facility] Oxygen saturation in 2022-07-05 05:02:00 98 /min [facility] Arterial blood by [facility] Pulse oximetry Branch Procedures Procedure Date / Time Performing Clinician Source Performed INSURANCE CORRESPONDENCE 2022-11-05 06:01:00 Doctor Taty, [facility] Name [facility] [place] ASSIGNMENT OF BENEFITS 2022-10-21 20:05:08 Doctor Taty, [facility] Name Medical Branch REFERRAL- 2022-10-10 06:01:00 Doctor Taty, [facility] REQUEST/RESPONSE [place] [facility] REFERRAL- 2022-09-30 05:01:00 Doctor Taty, [facility] REQUEST/RESPONSE [place] [facility] [place] TROPONIN I 2022-08-26 06:54:00 Ana Talley [facility] COMP. METABOLIC PANEL 2022-08-26 06:54:00 Ana Talley [facility] ([id number]) [facility] CBC WITH DIFF 2022-08-26 06:54:00 Ana Talley [facility] POCT GLUCOSE (AUTOMATED) 2022-08-26 06:29:00 Ana Talley [facility] POCT TEST 2022-08-26 06:01:00 Ana Talley [facility] CONSENT/REFUSAL FOR 2022-08-26 05:27:18 Doctor Taty [facility] DIAGNOSIS AND TREATMENT [facility] [place] XR HUMERUS 2 VW LEFT 2022-07-05 05:43:[address] [facility] XR SHOULDER 2+ VW LEFT 2022-07-05 05:43:33 Stanislav [facility] LUMBAR SPINE WO 2022-07-05 05:38:10 Stanislav Brennan [facility] CONTRAST [facility] POCT TEST 2022-07-05 05:25:00 Stanislav Brennan kiki [facility] [id number] 2020-04-22 [id number] 2020-04-22 00:00:00 [facility] Encounters Start End Encounter Admission Attending Care Care Encounter Source Date/Time Date/Time Type Type Clinicians Facility Department ID 2023-09-09 Outpatient PLZOBG PLZOBG [place] 08:07:00 1010 OBGYN 2022-12-13 Outpatient PLZOBG PLZOBG [id number] [place] 09:04:03 0113 OBGYN 2020-10-25 Inpatient EL Bruno Alvarenga [facility] OUTD [id number] [facility] 13:00:00 26 [facility] [place] 2020-05-05 Inpatient EL ZeBruno johnson [facility] LD [id number] [facility] 09:24:00 98 [facility] [place] 2020-04-21 Inpatient ZeidBruno [facility] FANNY [id number] [facility] 06:33:00 50 [facility] [place] 2020-03-01 Inpatient EL ZeidBruno [facility] OBOP [id number] [facility] 00:10:00 52 [facility] [place] 2020-02-18 Inpatient EL ZeidBruno [facility] OBOP [id number] [facility] 13:39:00 22 [facility] [place] 2020-02-02 Inpatient ZeidBruno [facility] FANNY [id number] [facility] 16:02:00 75 [facility] [place] 2023-09-11 2023-09-11 Office PLZOBG PLZOBG [id number] [place] 00:00:00 00:00:00 Visit, Est OBG YN Pt., Level 3 2023-01-21 2023-01-21 (ESTPTGYN) PLZOBG PLZOBG [id number] [place] 00:00:00 00:00:00 Establishe OBG YN d Patient Student Outreach Coordinator 2023-01-17 2023-01-17 (TEL) PLZOBG PLZOBG [id number] [place] 00:00:00 00:00:00 OBGYN 2022-12-13 2022-12-13 (ESTPTGYN) PLZOBG PLZOBG [id number] [place] 00:00:00 00:00:00 Dago JACKSONG YN d Patient Student Outreach Coordinator 2022-11-12 2022-11-12 Outpatient R HANS [facility] [id number] Univers 16:00:00 16:00:00 TIFFANY ott o f [facility] 2022-11-05 2022-11-05 Orders Doctor NEIL [id number] Univers 00:00:00 00:00:00 Only Unassigned, MAYRA 350.1.13.[address] [facility] 4.2.7.2.686 Vaibhav as [id number] [address] 2022-10-28 2022-10-28 Outpatient EVANS BROCK [facility] [id number] Univers 13:40:00 14:40:00 EVANS GUSMAN ity [facility] 2022-10-28 2022-10-28 Office [facility] 1.2.840.114 [id number] Univers 13:40:00 14:40:00 Visit [facility] 350.1.13.10 ity [facility] 4.2.7.2.686 Vaibhav as VINNIE?BLEA [phone] Nm dical [facility] [address] [place] MEDICAL [facility] 2022-10-21 2022-10-21 Outpatient Hermes OLIVO [facility] [id number] Univers 14:40:00 14:59:11 TIFFANY ott o f [facility] 2022-10-21 2022-10-21 Office [facility] 1.2.840.114 [id number] Univers 14:40:00 14:59:11 Visit Tiffany [place] 350.1.13.10 ity of [place] [id number] Nm dical ED 059 Branch BUILDING 2022-10-21 2022-10-21 Orders Doctor TREJO 1.2.840.114 [id number] Univers 00:00:00 00:00:00 Only Unassigned, MAYRA 350.1.13.10 ity of [facility] 4.2.7.2.686 Vaibhav as [id number] [address] 2022-10-10 2022-10-10 Orders Doctor NEIL 1.2.840.114 [id number] Univers 00:00:00 00:00:00 Only Unassigned, MAYRA 350.1.13.10 ity of [facility] 4.2.7.2.686 Vaibhav as [phone] [address] 2022-09-30 2022-09-30 Orders Doctor NEIL 1.2.840.114 [id number] Univers 00:00:00 00:00:00 Only Unassigned, MAYRA 350.1.13.10 ity of [facility] 4.2.7.2.686 Vaibhav as [id number] [address] 2022-08-26 2022-08-26 Emergency [facility] [id number] Univers 00:28:00 03:02:00 Ana [place] 350.1.13.10 ity of [place] 4.2.7.2.686 [facility] [id number] [address] 2022-08-26 2022-08-26 Emergency X [facility] ERT [id number] Univers 00:28:00 03:02:00 KENYAPAYTONLI ity [facility] 2022-07-05 2022-07-05 Emergency X [facility] ERT [id number] Univers 00:08:00 01:49:00 STANISLAV ity [facility] 2022-07-05 2022-07-05 Emergency [facility] 1.2.840.114 [id number] Univers 00:08:00 01:49:00 Stanislav Corey [place] 350.1.13.10 i ty of [place] 4.2.7.2.686 [facility] [id number] [address] 2022-07-05 2022-07-05 Emergency X [facility] ERT [id number] Univers 00:08:00 01:49:00 STANISLAV ity [facility] 2022-02-22 2022-02-22 Emergency Singer [facility] [id number] [id number] Univers 01:04:00 02:42:00 Delano [place] 350.1.13.10 i Evan 4.2.7.2.686 [facility] [id number] [place] [id number] Branch 2022-02-22 2022-02-22 Emergency X [facility] ERT [id number] Univers 01:04:00 02:42:00 DELANO ott [facility] 2020-03-30 2020-03-30 [facility] 6 [id number] [place] 10:00:00 10:00:00 t; [place] n[place] ASIF M.D. Sports ans Johanna CRESPO M.D. [facility] 2020-02-29 2020-02-29 Appointmen [facility] [id number] [place] 13:15:00 13:15:00 t; US, Physic i [facility] ONEFANNIN ans -US, ONEFANNIN Results Test Description Test Time Test Comments Results Result Comments Source TROPONIN I 2022-08-26 07:24:58 Test Item Value Reference Range Interpretation Comme nts TROPONIN I (test code = See_Comment [Au tomated message] The [id number]) system which ge nerated this result tra nsmitted reference range : <=0.034. The reference r ifeanyi was not used to int erpret this result as normal/abnormal . GISELLE (test code = GISELLE) Reference (Normal) Range (defined by the 99th percentile reference limit): <= 0.034 ng/mL Note: Cardiac troponin begins to rise 3-4 hours after the onset of ischemia. Repeat in 4-6 hours if the sample was drawn within 3-4 hours of the onset of the symptom and found normal. Diagnosis of myocardial injury is made with acute changes in cTn concentrations with at least one serial sample above the 99th percentile upper reference limit (URL), taken together with the patient's clinical presentation. Biotin has been reported to cause a negative bias, interpret results relative to patient's use of biotin. Lab Interpretation Normal (test code = 10973-9) [facility][id number][facility]2022-08-26 07:13:36 Test Item Value Reference Range Interpretation Comments NA (test code = 136 mmol/L 135-145 0459539957) K (test code = 4.5 mmol/L 3.5-5 0706170254) CL (test code = 99 mmol/L 98-108 4233907752) CO2 TOTAL (test code = 26 mmol/L 23-31 3478522174) AGAP (test code = 2-16 9477078713) BUN (test code = 18 mg/dL 7-23 5630324244) GLUCOSE (test code = 120 mg/dL 70-110 H 9727796320) CREATININE (test code = 0.83 mg/dL 0.5-1.04 8500665391) TOTAL BILI (test code = 0.4 mg/dL 0.1-1.6 1950884378) CALCIUM (test code = 9.7 mg/dL 8.6-10.6 8326434134) T PROTEIN (test code = 7.6 g/dL 6.3-8.2 9802892516) ALBUMIN (test code = 4.7 g/dL 3.5-5 9199384404) ALK PHOS (test code = 85 U/L 34-122 9915027041) ALTv (test code = 32 U/L 5-35 1742-6) AST(SGOT) (test code = 25 U/L 13-40 5104973289) eGFR (test code = mL/min/1.73m2 0704669824) GISELLE (test code = GISELLE) Association of Glomerular Filtration Rate (GFR) and Staging of Kidney Disease* + --+ --+ ------+| GFR (mL/min/1.73 m2) ?| With Kidney Damage ?| ?Without Kidney Damage+ --------+ --------+ +| ?>90 ?| ?Stage one ?| ? Normal ?+ ---+ ---+ -------+| ?60-89 ?| ?Stage two ?| ? Decreased GFR ? + --+ --+ ------+| ?30-59 ?| ?Stage three ?| ? Stage three ? + --+ --+ ------+| ?15-29 ?| ?Stage four ? | ? Stage four ?+ ---+ ---+ -------+| ?<15 (or dialysis) ? ?| ?Stage five ? | ? Stage five ?+ ---+ ---+ -------+ *Each stage assumes the associated GFR level has been in effect for at least three months. ?Stages 1 to 5, with or without kidney disease, indicate chronic kidney disease. Notes: Determination of stages one and two (with eGFR >59mL/min/1.73 m2) requires estimation of kidney damage for at least three months as defined by structural or functional abnormalities of the kidney, manifested by either:Pathological abnormalities or Markers of kidney damage (including abnormalities in the composition of the blood or urine or abnormalities in imaging tests). Lab Interpretation Abnormal (test code = 99799-9) [facility] WITH [id number] 07:00:37 Test Item Value Reference Range Interpretation Comments WBC (test code = See_Comment [Automated 0133-2) message] The sy stem which generated this result transmitted reference range : 4.30 - 11.10 10*3/?L. The reference range was not used to interpret this result as normal/abnormal . RBC (test code = See_Comment [Automated 134-8) message] The sy stem which generated this result transmitted reference range : 3.93 - 5.25 10*6/?L. The reference range was not used to interpret this result as normal/abnormal . HGB (test code = 13.7 g/dL 11.6-15 718-7) HCT (test code = 39.6 % 35.7-45.2 4544-3) MCV (test code = 91.7 fL 80.6-95.5 787-2) MCH (test code = 31.7 pg 25.9-32.8 785-6) MCHC (test code = 34.6 g/dL 31.6-35.1 786-4) RDW-SD (test code = 39.3 fL 39-49.9 95190-7) RDW-CV (test code = 11.7 % 12-15.5 L 788-0) PLT (test code = See_Comment [Automated 697-3) message] The sy stem which generated this result transmitted reference range : 166 - 358 10*3/ ?L. The reference r ifeanyi was not used to interpret this result as normal/abnormal . MPV (test code = 9.2 fL 9.5-12.9 L 52645-4) NRBC/100 WBC (test See_Comment [Automat ed code = 5747824204) message] The system which generated this result transmitted reference range : 0.0 - 10.0 /100 WBCs. The refer ence range was not u sed to interpret th is result as normal/abnormal . NRBC x10^3 (test code See_Comment [Auto mated = 4207801415) message] The s ystem which generated this result transmitted reference range : 10*3/?L. The reference range was not used to interpret this result as normal/abnormal . GRAN MAT (NEUT) % 71.7 % (test code = 770-8) IMM GRAN % (test code 0.50 % = 3219747443) LYMPH % (test code = 21.5 % 736-9) MONO % (test code = 4.9 % 5905-5) EOS % (test code = 0.8 % 713-8) BASO % (test code = 0.6 % 706-2) GRAN MAT x10^3(ANC) 7.55 10*3/uL 1.88-7.09 H (test code = 2302698242) IMM GRAN x10^3 (test 0.05 10*3/uL 0-0.06 code = 6605647346) LYMPH x10^3 (test code 2.26 10*3/uL 1.32-3.29 = 731-0) MONO x10^3 (test code 0.51 10*3/uL 0.33-0.92 = 742-7) EOS x10^3 (test code = 0.08 10*3/uL 0.03-0.39 711-2) BASO x10^3 (test code 0.06 10*3/uL 0.01-0.07 = 704-7) Lab Interpretation Abnormal (test code = 67449-3) [facility] GLUCOSE (AUTOMATED)2022-08-26 06:32:19 Test Item Value Reference Range Interpretation Comments POCT GLU (test code = 9235106557) 93 mg/dL 70-110 Lab Interpretation (test code = Normal 61779-1) [facility] [id number] 06:01:00 Test Item Value Reference Range Interpretation Comments POCT PREG (test code = 1605) negative On board controls acceptable with positive C Line (test code = 3574) POCT PREG LOT # (test code = 3575) [id number] POCT PREG TEST DATE (test 11/30/2023 code = 3576) Lab Interpretation (test code = Normal 11098-1) [facility] [id number] 05:25:00 Test Item Value Reference Range Interpretation Comments POCT PREG (test code = 1605) Negative On board controls acceptable with Present C Line (test code = 3574) POCT PREG LOT # (test code = HCG [id number] [id number]) POCT PREG TEST DATE (test 09/30/2023 code = 3576) Lab Interpretation (test code = Normal 04757-5) [facility] TUBE,[id number] 15:07:00 Test Item Value Reference Range Interpretation Comments OVARY W/WO TUBE,NON-NEOPLASTIC (test code = OVARNOTNEO) RUN DATE: 10/30/20 [facility] PAGE 1 RUN TIME: 1758 Specimen Inquiry RUN USER: INTERFACE PATIENT: ZEYNEP ZHAO LOC: [facility] U #: [id number] AGE/SX: 20/F ROOM: RE10/25/20REG DR: Bruno Alvarenga MD : 99 BED: DIS: STATUS: [facility] TLOC: SPEC #: [id number] RECD: 10/25/20 STATUS: MANDEEP REMalia #: [id number] GUY: 10/25/20- SUBM DR: Bruno Alvarenga MD ENTERED: 10/25/20 SP TYPE: CLARY MOTA DR: ORDERED: LEVEL IV CODES: E23344 - OVARY, NOS PROCEDURES: LEVEL IV (Incomplete) TISSUES: OVARY, NOS - RIGHT OVARIAN CYST WALL CLINICAL HISTORY 20 year old, pelvic pain, right ovarian cyst (kr) FINAL DIAGNOSIS Right ovarian cyst, resection: - corpus luteum cyst CPT code(s): 90001 cds/wpd GROSS DESCRIPTION ANATOMIC SOURCE OF TISSUE (per Requisition): Right ovarian cyst wall The specimen is received in a formalin-filled container, labeled with the patient's name and designated "right ovarian cyst". The specimen consists of a 2.5 x 2 x 1 cm aggregate of fragmented carolina-pink to red soft tissues. The tissues are entirely submitted in toto in A1 and A2. monet 10/25/20 Signed [place] 10/30/20 1507 END OF REPORT URINALYSIS [id number] 10:05:00 Test Item Value Reference Range Interpretation Comments UA COLOR (test code = COLU) YELLOW YELLOW UA APPEARANCE (test code = APPU) CLEAR CLEAR UA GLUCOSE DIPSTICK (test code = NEGATIVE NEGATIVE DGLUU) UA BILIRUBIN DIPSTICK (test code = NEGATIVE NEGATIVE BILU) UA KETONE DIPSTICK (test code = NEGATIVE NEGATIVE KETU) UA SPECIFIC GRAVITY (test code = 1.025 1.001-1.035 N SGU) UA BLOOD DIPSTICK (test code = JHONY) TRACE NEGATIVE A UA PH DIPSTICK (test code = PUJA) 6.5 5-9 UA PROTEIN DIPSTICK (test code = TRACE NEGATIVE A PROU) UA UROBILINIOGEN DIPSTICK (test 0.2 EU/dL <=1.0 code = URO) UA NITRITE DIPSTICK (test code = NEGATIVE NEGATIVE RAY) UA LEUKOCYTE ESTERASE DIPSTICK NEG NEGATIVE (test code = LEUU) UA WBC (test code = WBCU) 0-2 #/hpf NONE SEEN UA RBC (test code = RBCU) 2-5 #/hpf NONE SEEN A UA EPITHELIAL CELLS (test code = FEW #/HPF RARE-FEW EPIU) UA BACTERIA (test code = BACU) FEW #/hpf NONE SEEN A URINE SAMPLE: CLEAN CATCHUR HCG [id number] 10:05:00 Test Item Value Reference Range Interpretation Comments UR HCG QUAL (test NEGATIVE 1. Very di lute urine code = HCGQLU) specimens, as indicated by a lowspecific g ravity, may not contain rep resentative levels ofhCG. 2 . False negative result s may occur when the levels of hCGare below the sensi tivity level of the test. If is still suspec chiqui, a first morningurine sp ecimen should be colle cted 48 hours later and tested. URINE SAMPLE: CLEAN CATCHCOVID 19 Asymptomatic IH [id number] 09:58:00 Test Item Value Reference Range Interpretation Comments COVID 19 NEGATIVE NEGATIVE This test has b een Asymptomatic IH AG authorize d only for the (test code = detection ofpro teins from COVNONPUIAG) SARS-CoV-2, not for any other viruses orpathogens. Ne gative results should be treated as presumptive andconfirmed wi th a molecular assay , if necessary for patientmanageme nt. Negative result s do not rule out COVID- 19 andshould not b e used as the sole basis for treatment orpat ient management deci sions, including infec tion controldecision s. Negative result s should be considered i n thecontext of a patient's recent exposure s, history and thepresence of clinical signs and symptoms consis tent withCOVID-19. T his test has not been FD A cleared or approved; th e test hasbeen authori марина by FDA under an Emerge ncy Use Authorization(E UA) for use by laborato ezra certified under the CLIA thatmeet the re quirements to perform mode rate, high or waivedcomple xity tests. This collins t is authorized for use at thePoint of Car e (POC), i.e., in patien t care settingsoperati ng under a CLIA Certificat e of Waiver, Certifi julio ofCompliance, o r Certificate of Accreditation. This test is only authori zed for the duration of thedeclaration that circumstances e xist justifying theauthorizatio n of emergency use o f in vitro diagnostic test sfor detection and/o r diagnosis of CO VID-19 under Wncjidq82 4(b)(1) of the Act, 21 U.S .C. 360bbb-3(b)(1), unless theauthorizatio n is terminated or r evoked sooner. URINALYSIS [id number] 09:56:00 Test Item Value Reference Range Interpretation Comments UA COLOR (test code = COLU) YELLOW YELLOW UA APPEARANCE (test code = APPU) CLEAR CLEAR UA GLUCOSE DIPSTICK (test code = NEGATIVE NEGATIVE DGLUU) UA BILIRUBIN DIPSTICK (test code = NEGATIVE NEGATIVE BILU) UA KETONE DIPSTICK (test code = NEGATIVE NEGATIVE KETU) UA SPECIFIC GRAVITY (test code = 1.025 1.001-1.035 N SGU) UA BLOOD DIPSTICK (test code = JHONY) TRACE NEGATIVE A UA PH DIPSTICK (test code = PUJA) 6.5 5-9 UA PROTEIN DIPSTICK (test code = TRACE NEGATIVE A PROU) UA UROBILINIOGEN DIPSTICK (test 0.2 EU/dL <=1.0 code = URO) UA NITRITE DIPSTICK (test code = NEGATIVE NEGATIVE RAY) UA LEUKOCYTE ESTERASE DIPSTICK NEG NEGATIVE (test code = LEUU) UA WBC (test code = WBCU) #/hpf NONE SEEN UA EPITHELIAL CELLS (test code = #/HPF RARE-FEW EPIU) URINE SAMPLE: CLEAN CATCHUR HCG [id number] 09:56:00 Test Item Value Reference Range Interpretation Comments UR HCG QUAL (test NEGATIVE 1. Very di lute urine code = HCGQLU) specimens, as indicated by a lowspecific g ravity, may not contain rep resentative levels ofhCG. 2 . False negative result s may occur when the levels of hCGare below the sensi tivity level of the test. If is still suspec chiqui, a first morningurine sp ecimen should be colle cted 48 hours later and tested. URINE SAMPLE: CLEAN CATCHURINALYSIS [id number] 09:40:00 Test Item Value Reference Range Interpretation Comments UA COLOR (test code = COLU) YELLOW UA APPEARANCE (test code = APPU) CLEAR UA GLUCOSE DIPSTICK (test code = NEGATIVE DGLUU) UA BILIRUBIN DIPSTICK (test code = NEGATIVE BILU) UA KETONE DIPSTICK (test code = KETU) NEGATIVE UA SPECIFIC GRAVITY (test code = SGU) 1.001-1.035 UA BLOOD DIPSTICK (test code = JHONY) NEGATIVE UA PH DIPSTICK (test code = PUJA) 5-9 UA PROTEIN DIPSTICK (test code = PROU) NEGATIVE UA UROBILINIOGEN DIPSTICK (test code = mg/dL NEG URO) UA NITRITE DIPSTICK (test code = RAY) NEGATIVE UA LEUKOCYTE ESTERASE DIPSTICK (test NEG code = LEUU) UA WBC (test code = WBCU) #/hpf NONE SEEN UA EPITHELIAL CELLS (test code = EPIU) #/HPF RARE-FEW URINE SAMPLE: CLEAN CATCHUR HCG [id number] 09:40:00 Test Item Value Reference Range Interpretation Comments UR HCG QUAL (test NEGATIVE 1. Very di lute urine code = HCGQLU) specimens, as indicated by a lowspecific g ravity, may not contain rep resentative levels ofhCG. 2 . False negative result s may occur when the levels of hCGare below the sensi tivity level of the test. If is still suspec chiqui, a first morningurine sp ecimen should be colle cted 48 hours later and tested. URINE SAMPLE: CLEAN CATCHCBC W/AUTO [id number] 09:39:00 Test Item Value Reference Range Interpretation Comments WHITE BLOOD CELL (test code = WBC) 8.0 K/mm3 6.6-12.1 N RED BLOOD CELL (test code = RBC) 4.22 M/mm3 3.45-5.01 N HEMOGLOBIN (test code = HGB) 13.6 g/dL 10.7-13.9 N HEMATOCRIT (test code = HCT) 41.2 % 32.1-42.1 N MEAN CELL VOLUME (test code = MCV) 98 fL 84.1-94.8 H MEAN CELL HGB (test code = MCH) 32.2 pg 27-35 N MEAN CELL HGB CONCETRATION (test 33.0 gm/dL 32.2-34.1 N code = MCHC) RED CELL DISTRIBUTION WIDTH (test 12.1 % 12.4-16.5 L code = RDW) PLATELET COUNT (test code = PLT) 289 K/mm3 133-385 N MEAN PLATELET VOLUME (test code = 9.4 fl 9.1-12.7 N MPV) NEUTROPHIL % (test code = NT%) 59.9 % 56.5-79.4 N LYMPHOCYTE % (test code = LY%) 30.6 % 14.3-34.3 N MONOCYTE % (test code = MO%) 5.6 % 5.1-10.4 N EOSINOPHIL % (test code = EO%) 3.3 % 0.1-3.0 H BASOPHIL % (test code = BA%) 0.5 % 0.1-1.0 N NEUTROPHIL # (test code = NT#) 4.8 K/mm3 LYMPHOCYTE # (test code = LY#) 2.4 K/mm3 MONOCYTE # (test code = MO#) 0.5 K/mm3 EOSINOPHIL # (test code = EO#) 0.26 K/mm3 BASOPHIL # (test code = BA#) 0.0 K/mm3 RBC MORPHOLOGY REQUIRED (test code NORMAL NORMAL = RBCM) PLATELET MORPHOLOGY REQUIRED (test NORMAL NORMAL code = PLTMR) HGB [id number] 04:53:00 Test Item Value Reference Range Interpretation Comments HEMOGLOBIN (test code = 9.5 g/dL 10.7-13.9 L RESU LTS VERIFIED BY HGB) REPEAT ANALYSIS HEMATOCRIT (test code = 29.2 % 32.1-42.1 L HCT) Coronavirus 2019 nCoV [id number] 09:52:00 Test Item Value Reference Range Interpretation Comments Coronavirus 2019 nCoV Negative Negative RESUL TS CALLED TO Bedside (test code = TRENT E PREAD BACK & COVNONPUIBED) CONFIRMED? DENI AgueroLAB.MSC 04/21/20 0952 T his result does not rule out co-infections w ith otherpathogens. * False negative result s may occur if a spec imen isimproperly co llected, transported or handled. False negativer esults may also occur if amplification i nhibitors arepresent in t he specimen or if inadequate leve ls of virusesare pres ent in the specimen. * As with any molecular t est, if the virus mutat es in thetarget regio n, COVID-19 may no t be detected or may bedetected less predictably.COLLINS T PERFORMED UNDER AN EMERGENCY USE AUTHORIZATION F ROM FDA AG HEPATITIS B [id number] 09:01:00 Test Item Value Reference Range Interpretation Comments AG HEPATITIS B SURFACE (test code NONREACTIVE NONREACTIVE = HBSAG) IS CONSENT FORM SIGNED FOR HIV TESTING? YAB HEPATITIS C [id number] 09:01:00 Test Item Value Reference Range Interpretation Comments AB HEPATITIS C (test code = NONREACTIVE NONREACTIVE HCVAB) SIGNAL TO CUTOFF (test code = 0.09 <0.80 N CUTOFF) IS CONSENT FORM SIGNED FOR HIV TESTING? YAB [id number] 09:01:00 Test Item Value Reference Range Interpretation Comments AB TREPONEMA (test code = TREPAB) NONREACTIVE NONREACTIVE IS CONSENT FORM SIGNED FOR HIV TESTING? YAB HIV 1 09:01:00 Test Item Value Reference Range Interpretation Comments AB HIV 1 2 (test NONREACTIVE NONREACTIVE Done by [facility] code = TBY19EF) 4th Gen HIV Ag/Ab Combo Screen IS CONSENT FORM SIGNED FOR HIV TESTING? YAG HEPATITIS B [id number] 08:37:00 Test Item Value Reference Range Interpretation Comments AG HEPATITIS B SURFACE (test code NONREACTIVE NONREACTIVE = HBSAG) IS CONSENT FORM SIGNED FOR HIV TESTING? YAB HEPATITIS C [id number] 08:37:00 Test Item Value Reference Range Interpretation Comments AB HEPATITIS C (test code = HCVAB) NONREACTIVE SIGNAL TO CUTOFF (test code = CUTOFF) <0.80 IS CONSENT FORM SIGNED FOR HIV TESTING? YAB [id number] 08:37:00 Test Item Value Reference Range Interpretation Comments AB TREPONEMA (test code = TREPAB) NONREACTIVE NONREACTIVE IS CONSENT FORM SIGNED FOR HIV TESTING? YAB HIV 1 08:37:00 Test Item Value Reference Range Interpretation Comments AB HIV 1 2 (test code = MFM08IP) NONREACTIVE IS CONSENT FORM SIGNED FOR HIV TESTING? YCOMPREHENSIVE METABOLIC [id number] 07:59:00 Test Item Value Reference Range Interpretation Comments SODIUM (test code = NA) 138 mEq/L 135-145 N POTASSIUM (test code = K) 4.0 mEq/L 3.5-5.0 N CHLORIDE (test code = CL) 104 mEq/L 100-115 N CARBON DIOXIDE (test code = CO2) 21 mEq/L 22-31 L ANION GAP (test code = GAP) 16.60 10-20 N GLUCOSE (test code = GLU) 87 mg/dL 65-110 N BLOOD UREA NITROGEN (test code = 11 mg/dL 7-18 N BUN) GLOMERULAR FILTRATION RATE (test 91 ml/min >60 N code = GFR) CREATININE (test code = CREAT) 0.8 mg/dL 0.5-1.0 N TOTAL PROTEIN (test code = PROT) 6.4 gm/dL 6.3-8.2 N ALBUMIN (test code = ALB) 2.9 gm/dL 3.4-4.8 L CALCIUM (test code = CA) 9.1 mg/dL 8.4-10.2 N BILIRUBIN TOTAL (test code = 0.2 mg/dL 0.2-1.0 N BILT) SGOT/AST (test code = AST) 20 units/L 15-37 N SGPT/ALT (test code = ALT) 16 units/L 12-78 N ALKALINE PHOSPHATASE TOTAL (test 188 units/L 46-116 H code = ALKP) CBC W/AUTO [id number] 07:42:00 Test Item Value Reference Range Interpretation Comments WHITE BLOOD CELL (test code = WBC) 15.7 K/mm3 6.6-12.1 H RED BLOOD CELL (test code = RBC) 3.78 M/mm3 3.45-5.01 N HEMOGLOBIN (test code = HGB) 12.1 g/dL 10.7-13.9 N HEMATOCRIT (test code = HCT) 35.9 % 32.1-42.1 N MEAN CELL VOLUME (test code = MCV) 95 fL 84.1-94.8 H MEAN CELL HGB (test code = MCH) 32.0 pg 27-35 N MEAN CELL HGB CONCETRATION (test 33.7 gm/dL 32.2-34.1 N code = MCHC) RED CELL DISTRIBUTION WIDTH (test 12.4 % 12.4-16.5 N code = RDW) PLATELET COUNT (test code = PLT) 268 K/mm3 133-385 N MEAN PLATELET VOLUME (test code = 10.8 fl 9.1-12.7 N MPV) NEUTROPHIL % (test code = NT%) 77.0 % 56.5-79.4 N LYMPHOCYTE % (test code = LY%) 15.8 % 14.3-34.3 N MONOCYTE % (test code = MO%) 5.4 % 5.1-10.4 N EOSINOPHIL % (test code = EO%) 0.9 % 0.1-3.0 N BASOPHIL % (test code = BA%) 0.3 % 0.1-1.0 N NEUTROPHIL # (test code = NT#) 12.1 K/mm3 LYMPHOCYTE # (test code = LY#) 2.5 K/mm3 MONOCYTE # (test code = MO#) 0.8 K/mm3 EOSINOPHIL # (test code = EO#) 0.14 K/mm3 BASOPHIL # (test code = BA#) 0.0 K/mm3 RBC MORPHOLOGY REQUIRED (test code NORMAL NORMAL = RBCM) PLATELET MORPHOLOGY REQUIRED (test NORMAL NORMAL code = PLTMR) URINALYSIS [id number] 20:14:00 Test Item Value Reference Range Interpretation Comments UA COLOR (test code = COLU) YELLOW YELLOW UA APPEARANCE (test code = Slightly-Cloudy CLEAR APPU) UA GLUCOSE DIPSTICK (test 1+ NEG A code = DGLUU) UA BILIRUBIN DIPSTICK (test NEGATIVE NEG code = BILU) UA KETONE DIPSTICK (test code NEGATIVE NEG = KETU) UA SPECIFIC GRAVITY (test 1.026 1.001-1.035 N code = SGU) UA BLOOD DIPSTICK (test code NEG NEG = JHONY) UA PH DIPSTICK (test code = 6.0 5-9 PUJA) UA PROTEIN DIPSTICK (test NEGATIVE NEG code = PROU) UA UROBILINIOGEN DIPSTICK NEGATIVE mg/dL NEG (test code = URO) UA NITRITE DIPSTICK (test NEG NEG code = RAY) UA LEUKOCYTE ESTERASE NEG NEG DIPSTICK (test code = LEUU) UA WBC (test code = WBCU) 0-2 #/hpf NONE SEEN UA RBC (test code = RBCU) 0-2 #/hpf NONE SEEN UA EPITHELIAL CELLS (test RARE #/HPF RARE-FEW code = EPIU) UA BACTERIA (test code = FEW /HPF RARE-FEW BACU) UA MUCUS (test code = MUCU) 3+ NONE SEEN Comments to Engagement Liaison: ALCIDES KAMINSKI SAMPLE: CLEAN CATCH Notes Date/Time Note Provider Source 2020-10-25 17:20:00 [id number] [facility] [address] PATIENT NAME: ZEYNEP ZHAO ADMIT DATE: 10/25/20ACCOUNT NO: [id number] KARRI Vazquez NO: AGE: 20 SEX: F ADMITTING PHYSICIAN: ATTENDING PHYSICIAN: Bruno Alvarenga MD OPERATION DATE: 10/25/2020 PREOPERATIVE DIAGNOSES: Right ovarian cyst and pelvic pain. POSTOPERATIVE DIAGNOSES: Right ovarian cyst and pelvic pain and pelvicendometriosis. PROCEDURES PERFORMED: Operative laparoscopy, right ovarian cystectomy, andcoagulation of pelvic endometriosis. SURGEON: Bruno Alvarenga MD SMT MACHINE OPERATOR: ANESTHESIA: General. COMPLICATIONS: None. ESTIMATED BLOOD LOSS: 10 mL . FINDINGS OF THE PROCEDURE: Right ovarian cyst with the content similar to beendometrioma, awaiting pathology and pelvic endometriosis in the vtvsajkloxyt-ox-vrc and right pelvic sidewall. Normal-appearing uterus, normal-appearingleft ovary, normal-appearing fallopian tubes. No evidence of injury to bowel,viscera, or blood vessels. PROCEDURE IN DETAIL: The patient was taken to the operating room and wasprepped and draped in the usual manner in dorsal lithotomy position with legs inYellofin stirrup. After appropriate prep and draping, a 5 mm incision was madein the lower margin of the umbilicus and a 5 mm trocar with Optiview, andlaparoscope was inserted through th e 5 mm incision. Intra-abdominal positionwas confirmed with the scope. Then, the abdomen was insufflated with CO2 gas.Then, a second 5 mm trocar was inserted into the left lower quadrant and a third5 mm trocar was inserted into the right lower quadrant. At this point,attention directed towards the right ovarian cyst, an incision was made in theovarian capsule using e bipolar and the scissors and then I tried to dissectthe cyst and the cyst was drained and the content was suctioned and with bluntand sharp dissection, I was able to peel the ovarian tissu e off the ovariancyst. The ovarian cyst came out i n multiple pieces. It looked likeendometrioma. I used the Kel Harmonic to make sure removing all the cyst walland contents and this cyst was sent to pathology. Then, the base of the cyst onthe ovarian side was coagulated using the bipolar fo r good hemostasis.Hemostasis was judged to be excellent. At this point, attention directed PATIENT NAME: ZEYNEP ZHAO towards the pelvic endometriosis that was coagulated using the bipolar, makingsur e no injury happened to the bowel or viscera. At this point, the procedurewas discontinued. CO2 gas was released from the abdominal cavity and allinstrument and sponge count noted to be correct and then the incision was closedusing 4- 0 Monocryl, followed by Dermabond. All instrument and sponge countnoted to be correct at the end o f the procedure. The patient tolerated theprocedur e well and was moved to recovery room in stable condition. Dictated By: Bruno Alvarenga MD WT: OP:F.HIM/BAUTISTA/NTSDD: 10/25/2020 17:20:09DT: 10/25/2020 17:57:32Conf#: [id number]/DID#: [id number] Authenticated and Edited by Bruno Alvarenga MD On 10/26/20 2:13:53 PM at 1416 PATIENT NAME : ZEYNEP ZHAO yqrlus5438-54-36F04:57:00F.[id number] i lable for patient jpwkWSDFMHRPVBHKED1048-56-95Z69:16:37 2020-10-25 07:55:00 [id number]:[id number] 057 [place] [id number] PATIENT NAME: ZEYNEP ZHAO ADMIT DATE: 10/25/20ACCOUNT NO: [id number] KARRI Vazquez NO: AGE: 20 SEX: F ADMITTING PHYSICIAN: ATTENDING PHYSICIAN: Bruno Alvarenga MD ADMISSION DATE: 10/25/2020 REASON FOR ADMISSION: Scheduled laparoscopic procedure. HISTORY OF PRESENT ILLNESS: This is a 20-year-ol d 1, para 1. Thepatient has long history o f endometriosis and she had a right ovarian cyst thathad been getting monitored for more than two months. Last ultrasound was donelast week and showed that the cyst has gotten bigger and the patient complainingof severe pelvic pain and severe pain during intercourse and she wants somethingdone for the cyst and she is scheduled for laparoscopy and any indicatedprocedure. PAST OBSTETRICAL HISTORY: History of one spontaneous vaginal delivery. GYNECOLOGIC HISTORY: The patient denies history of sexual transmitted diseaseor abnormal Pap smear. PAST MEDICAL HISTORY: Endometriosis, PCOS, and ovarian cyst. PAST SURGICAL HISTORY: Hysteroscopy and laparoscopy with cystectomy. MEDICATIONS: None. SOCIAL HISTORY: The patient denies smoking, drinking alcohol, or drug use. ALLERGIES: NO KNOWN DRUG ALLERGIES. REVIEW OF SYSTEMS: Ten systems reviewed and are negative except for mentionedabove. PHYSICAL EXAMINATION:GENERAL: Th e patient is in no acute distress.HEART: Regular rate and rhythm.LUNGS: Clear to auscultation bilaterally.ABDOMEN: Soft, nontender.EXTREMITIES : No edema or tenderness.PELVIC: The patient is very tender on exam, more on the right adnexal side. ASSESSMENT AND PLAN: This is a 20-year-old 1, para 1, with rightovarian cyst and pelvic pain and dyspareunia. She is scheduled fo r laparoscopicprocedure and removal of right ovarian cyst and any indicated procedures. Risksof the procedure explained to the patient including but not limited toinfection, bleeding; internal organ damage to the bladder, bowel, ureter, PATIENT NAME: ZEYNEP ZHAO ovaries; requirement of further surgeries and prolonged hospital stay and thepatient verbalized understanding and agreed. Dictated By: Bruno Alvarenga MD WT: HP:F.LEONID/BAUTISTA/NTSDD: 10/25/2020 07:55:17DT: 10/25/2020 08:06:37Conf#: [id number]/DID#: [id number] by Bruno Alvarenga MD On 10/25/2020 09:56:19 AM at 0956 PATIENT NAME : ZEYNEP ZHAO and physical ffvxuesjdwk1939-30-01O19:06:00F.[id number] A VAvailable for patient dulwWMBXWIWAGSNEVS5523-09-71X48:56:54 2020-04-23 11:09:00 [id number]:09:00 [facility]OB Disch PostpartumREPORT#:[id number] REPORT STATUS: SignedDATE:04/23/20 TIME: 1109 PATIENT: ZEYNEP ZHAO UNIT #: [id number]#: [id number] [facility] AGE: 19 SEX: F ATTEND: Bruno Alvarenga [facility] AUTHOR: Bruno Alvarenga MD * ALL edits or amendments must be made on the electronic/computer document * Subjective SubjectiveAdmission EGA (wks/days): 38 weeksEGA at delivery (wks/days): 38 weeksStatus/day: post (day 1)Patient reports: Patient reports: Yes: normal lochia, pain management effective, tolerating po well, voiding well, voiding withou t pain, tolerating ambulation, flatus. No: complaints, headache, blurred vision. Objective GeneralVS:Vital Signs Date Temp Pulse Resp B/P B/P Mean Pulse Ox FiO2 04/22-04/23 36.7-36.8 76 18 112-134/75-81 Last Documented: Result Date Time B/P 134/81 04/23 0017 Temp 36.8 04/23 0017 Pulse 76 04/23 0017 Resp 18 04/23 0017 B/P Mean 88.0 04/22 0551 Pulse Ox 99 04/21 0911 Patient Weight Weight (lb): 212Weight (oz): Weight (kg): 96.162 Physical ExamCardiac: normal rhythmLungs: clear to auscultationNeuro: Exam: alert, oriente d p1Cxlgppg: post gravid, soft, no abnormal tenderness, no guarding, no rebound tenderness, normoactive bowel soundsLochia: normal Discharge Summary Discharge SummaryFree Text A P:s/p PPD 1doping wellVSS febrile wants to go home paloma l dc on preeclampsia precautions Hospital course: spontaneous vag deliveryBaby A: Vaginal delivery : spontaneous status: live born Gender: male 1 minute: 7 5 minutes: 8Discharge meds:Continue taking these medications:PNV/FE FUM/FA ( MULTIVITAMIN) 28 MG IRON-800 MC G TAB 1 TABLET ORAL DAILY. Start taking the following new medications:IBUPROFEN (MOTRIN) 800 MG TAB 800 MILLIGRAM ORAL THREE TIMES A DAY. as needed for PAIN Qty = 14 No Refills ACETAMINOPHEN/CODEINE (TYLENOL WITH CODEINE #3 300/30 MG) 300 MG-30 MG TAB 1 TABLET ORAL EVERY 4 HOURS NEEDED. as needed for PAIN Qty = 14 No Refills Electronically Signed by Bruno Alvarenga MD 04/23/20 at [address] [facility] #:[id number] OF REPORT OBObstetric hnly6201-46-40O49:09:00F.[id number] l able for patient efquBWQROHLZQNUSBA5164-48-00P00:10:38 2020-04-22 03:20:00 UEcfkqspmwn073625932215-78-11N65:20:00 [facility]OB Delivery NoteREPORT#:[id number] REPORT STATUS: SignedDATE:04/22/20 TIME: 319 PATIENT: ZEYNEP ZHAO UNIT #: [id number]#: [id number] [facility] AGE: 19 SEX: F ATTEND: Bruno Alvarenga MDA AUTHOR: Bruno Alvarenga MD * ALL edits or amendments must be made on the electronic/computer document * OB Delivery Nursing Documentation ReviewNjuana justin data:The data set between the solid lines has been imported from nursing documentation. Any exceptions have been noted below under Provider comments. _ ROM date: 04/21/20 ROM time: 529Membranes rupture method: SROMAmniotic fluid color: ClearAmniotic fluid amount: EGA (weeks/days): 38.0EGA at admit (weeks): EGA at delivery (weeks): 37Steroids prior to arrival: Antibiotic prophylaxis given: Johnson evaluation at delivery: Delivery date infant A: Delivery time infant A: Birthweight (gm) infant A: Weight (lb) infant A: Weight (oz ) A: Gender infant A: MaleApgar 1 minute A: 5 minutes A: 10 minutes infant A: Cord pH obtained A: Vacuum time A: Vacuum # pulls infant A: Vacuum # popoffs A: QBL at delivery: _ Provider comments on imported nursing data: [] Pre-deliveryGBS status: GBS status: positive Prophylaxis administered: penicillinNewborn evaluation at delivery: teamAdmission EGA (wks/days): 38 weeksEGA at delivery (wks/days): 38 weeks Baby A InformationBaby A information Delivery date: 04/22/20 Delivery time: 0303 status: live born Wt of baby: not yet available Gender: male 1 minute: 7 5 minutes: 8 Presentation: vertexNuchal cord Baby A Nuchal cord: yes (loose and reduced) Vaginal DeliveryVaginal delivery: Labor: augmented Medications/Devices used: oxytocin Vaginal delivery: spontaneous Amniotic fluid: meconium Anesthesia type: epidural anesthesia Episiotomy: right mediolateral Episiotomy repair: yes Episiotomy/laceration suture: 2-0 Placenta: spontaneous Post delivery meds used: oxytocin Count: correct Mother's condition: mother stableLacerations: High vaginal laceration: noExtraction details OVD performed: noShoulder dystocia present: no Blood Loss/DetailsBlood loss at delivery: 250 at 0322 RPT #:[id number] OF REPORT OBObstetric qeep7912-46-20E92:20:00F.[id number] l able for patient ekgtALMMDYBVDMIGKZ4878-12-15M68:22:47 2020-04-21 09:08:00 [id number]:08:[id number] [address] [facility] [place] [address] PATIENT NAME: ZEYNEP ZHAO ADMIT DATE: 04/21/20ACCOUNT NO: [id number] KARRI Vazquez NO: [id number] AGE: 19 SEX: F ADMITTING PHYSICIAN: Bruno Alvarenga MD ATTENDING PHYSICIAN: Bruno Alvarenga MD ADMISSION DATE: 04/21/2020 REASON FOR ADMISSION: Spontaneous rupture of membrane at 38 weeks. HISTORY OF PRESENT ILLNESS: This is a 19-year-ol d 1, para 0 at 38 weekspregnancy [facility] of [facility] . She was found to be grossly ruptured andcontracting every 4 to 5 minutes. A decision was made to admit the patient withspontaneous rupture of membrane and early labor, possible augmentation withPitocin. Her care was complicated with a possible club feet with thebaby and the patient had MFM and genetic consultation. All other workup wasnegative and the patient has appointment with orthopedics for the baby to followup after delivery. PAST OBSTETRICAL HISTORY: The patient is primigravida . GYNECOLOGIC HISTORY: The patient denies history of sexual transmitted diseaseor abnormal Pap smear. PAST MEDICAL HISTORY: Endometriosis, PCOS , hiatal hernia. PAST SURGICAL HISTORY: Hysteroscopy. ALLERGIES: NO KNOWN DRUG ALLERGIES . SOCIAL HISTORY: The patient denies smoking, drinking alcohol, or drug use. MEDICATIONS: vitamins, Pepcid. REVIEW OF SYSTEMS: Te n systems reviewed and are negative except for mentionedabove. PHYSICAL EXAMINATION:GENERAL: Th e patient is alert, in no acute distress.HEART: Regular rate and rhythm.LUNGS: Clear to auscultation bilaterally.ABDOMEN: Soft, nontender, gravid uterus.EXTREMITIES: No edema, no tenderness.PELVIC: Cervical exam on admission 1 cm dilated, 50% effaced, and -3 stationand grossly ruptured. ASSESSMENT AND PLAN: This is a 19-year-old 1, para 0 at 38 weeks withspontaneous rupture of membrane in early labor. We will admit to labor and PATIENT NAME: ZEYNEP ZHAO delivery for possible augmentation with Pitocin. GBS status is positive. Wewill start penicillin for intrapartum prophylaxis. The patient can haveepidural for pain control. We will continue to follow. Dictated By: Bruno Alvarenga MD WT: HP:F.HIM/GRETCHENO/NTSDD: 04/21/2020 09:08:19DT: 04/21/2020 09:59:55Conf#: [id number]/DID#: [id number] by Bruno Alvarenga MD On 04/23/2020 11:06:45 AM at 1241 PATIENT NAME : ZEYNEP ZHAO and physical pngtmcyfhgh0678-93-09F41:59:00F.[id number] A VAvailable for patient nlrwGZWLCXEZQWCREB1039-45-75I92:42:04 2020-02-17 05:46:00 [id number]:46:[id number] 069 [facility]'[place] [address] PATIENT NAME: ZEYNEP ZHAO ADMIT DATE: 02/02/20ACCOUNT NO: [id number] ROOM NO: AGE: 19 SEX: F ADMITTING PHYSICIAN: ATTENDING PHYSICIAN: Bruno Alvarenga MD ADMISSION DATE: 02/02/2020 This is triage evaluation dictated on the patient, Ralph Zhao, for evaluationon 02/02/2020 by Shannon Castañeda MD, triage hospitalist in OB ED per lisa Alvarenga. Please note, this is a repeat dictation, several of the dictationsfrom 01/31/2020 and 02/02/2020 have not been found an d I have been repeatingthose dictations. HISTORY O F PRESENT ILLNESS: The patient is a 19-year-old G1 , P0 with lastmenstrual period unsure in July of 2019 and estimated date of lwakrfkwoxc99/05/2020 . She presented at 26 and 5/7th weeks, complaining of increasedvaginal discharge and right flank pain as well as right lower extremitynumbness. She had seen Dr. Alvarenga with the same concerns on 01/31/2020. Workupwas negative including nitrazine negative per the patient. She denied vaginalbleeding and reported good movement . She denied come and go contractions. She denied history of renal stones or pyelonephritis or recent urinary tractinfections. She denied headache, vision changes or other preeclampsia symptoms. She denied fever, chills, nausea, vomiting, diarrhea or dysuria. She doesreport some chronic constipation during the . She also reports severeheartburn; therefore, she did not eat last evening and reports dizziness earlierin the day. Her care started [facility] Dr. Willams at approximately 8 weeks'gestation. Chauncey ramos had two visits there, then transferred to [facility] o Dr. Colette ellisly 12 weeks' gestation. He r next visit is scheduled for 02/18/2020.She denie s prior complications in the and reports all ultrasounds andlabs normal to her knowledge. No records are available at the time ofevaluation. PAST MEDICAL HISTORY: Negative. PAST SURGICAL HISTORY: Diagnostic laparoscopy with ablation of endometriosis [id number]. ALLERGIES : NO KNOWN DRUG ALLERGIES. MEDICATIONS: vitamins and as needed Tums for heartburn. OBSTETRICAL HISTORY: The patient is primiparous. GYNECOLOGIC HISTORY: Menarche at age 9 with cycles every 1 to 2 months,lasting 7 to 10 days. She reports heavy bleeding with minimal cramping for her. She denies prior history of STDs. She i s not sure if she has had Pap smearbefore, althoug h with her at her age, this would not have been recommended. PATIENT NAME: ZEYNEP ZHAO SOCIAL HISTORY: The patient denies tobacco or illicit drug use. She reportsrare prepregnancy alcohol use. She lives with her boyfriend, a 32-fdod-pxpectcctq male an d her mother, sister and maternal grandfather. The patient doesnot work outside the home. FAMILY HISTORY: Mother and maternal grandmother without health problems.Maternal grandfather with hypertension. No information on father or paternalgrandparents. The patient has one sister reported as healthy and 7 halfsiblings with unknown health status. She denies history of mental retardationor defects in her family or her partner's family. REVIEW OF SYSTEMS: A 10-point review of systems is negative except as statedabove. PHYSICAL EXAMINATION:GENERAL: This is a well-nourished, well-developed female, in n o acute distress,lying on triage stretcher in OB ED.VITAL SIGNS: Height 5 feet 3 inches, weight prior to the 172 poundsand at most recent visit to clinic 191 pounds. Blood pressur e 114/63, pulse 68,respirations 18 and temperature 98.3.HEAD AND NECK: Within normal limits without lymphadenopathy or thyromegaly.CHEST: Clear to auscultation bilaterally.HEART: With regular rat e and rhythm.BREASTS: Deferred.ABDOMEN: Soft, nontender and gravid with a fundal height of 25 cm.BACK: No CVA tenderness but the patient was noted to have tenderness along theparaspinous area, left greater than right, to moderate palpation.EXTREMITIES: No edema. Bilateral patellar reflexes 2+ and the right lowerextremit y showed no deficits on motor or sensory exam.NEUROLOGICAL: Nonfocal. The patient is awake, alert and oriented x3.PELVIC: Sterile speculum exam, no pooling was noted. She did havenormal-appearing leukorrhea. GC and chlamydi a and wet prep specimens werecollected and sent to the lab. No sterile vaginal exam was performed a s thepatient denied contractions. Cervix appeared closed and no contractions wereseen on monitoring. RADIOLOGICAL DATA: NST is category 1 for gestational age with baseline fetalheart tones in the 120 with multiple 15 x 15 accelerations, no decelerations andno contractions. LABORATORY DATA: Urinalysis showed 1+ glucose, otherwise negative for theremainder of the parameters with 0 to 2 rbc's, 0 to 2 wbc's, rare epithelialcells and few bacteria. GC and chlamydia both negative. Wet prep negative. ASSESSMENT/PLAN: This is a 19-year-old G1, P0 at 26 and 5/7th weeks, who presented complaining of increased vaginal discharge, right flank pain an d right lower extremity numbness. On evaluation, n o evidence of premature rupture of membranes, the discharge is consistent with normal leukorrhea, the low back pain seems to be musculoskeletal combination of musculoskeletal and sciatica on the right greater than left. She is now discharged home in stable condition with reassuring status. She is to follow up as scheduled with Dr. Alvarenga. She is encouraged to obtain a belt and use Tylenol and/or heat for the low back pain and sciatica. She is encouraged to drink at least 100 ounces of water daily, eat frequent small meals nongreasy with low-cholesterol and minimal spicy. It is suggested that PATIENT NAME: ZEYNEP ZHAO she use Maalox as needed 30 minutes prior to mealsand 30 minutes before bedtime. Other gastroesophageal reflux diseaseprecautions were given including no eatin g in bed, no supine for at least anhour after eating and elevate the head of the bed. She was given laborprecautions and is to call or return for vaginal bleeding, leakage of fluid,decreased movement, worsening pain o r other concerns. All instructionsgiven verbally leana swanson MD. Dictated By: Shannon Castañeda MD WT: HP:F.LEONID/KARUNAI/NTSDD: 02/17/2020 05:46:45DT: 02/17/2020 06:57:19Conf#: [id number]/DID#: [id number] and Edited by Shannon Castañeda MD On 02/18/20 10:01:58 AM at 1003 PATIENT NAME: ZEYNEP ZHAO and physical ymxjwuvtnyq4942-62-33O78:57:00F.[id number] A VAvailable for patient gtbvPGSSXXFBZXBXUW6183-65-55O49:04:04
[2023-10-20 17:18] LABS: Specific Gravity 1.022 (1.005-1.030)
[2023-10-20] MEDS ORDERED: BISACODYL E.C. 5 MG TAB PO ONE (17:19)
[2023-10-20 17:20] LABS: Specific Gravity 1.021 (1.005-1.030); Urine Bacteria None Seen /HPF (<20); Urine Bilirubin NEGATIVE (Negative); Urine Blood 2+ (Negative); Urine Clarity Clear (Clear); Urine Color Light-Yellow (Yellow); Urine Glucose NEGATIVE (Negative); Urine Mucus Slight /HPF (None Seen); Urine Protein NEGATIVE (Negative); Urine RBC <5 /HPF (None Seen); Urine Urobilinogen Normal (Normal)
[2023-10-20] MEDS ORDERED: BISACODYL 10 MG RECTAL SUPP ONE (17:58)
[2023-10-20] MEDS ORDERED: SIMETHICONE 80 MG CHEWABLE TAB ONE (17:59)
[2023-10-20] MEDS ORDERED: MAGNESIUM CITRATE 300 ML BOT ONE (17:59)
--- NOTE | 2023-10-20 18:00 | RAD REPORT ---
EXAM DESCRIPTION: RAD - Abdomen 1 View (KUB) - 10/20/2023 5:41 pm CLINICAL HISTORY: constipation;Abd pain Pain COMPARISON: <Comparisons> FINDINGS: The bowel gas pattern is non-obstructive. No evidence of free air or pneumatosis. No suspi cious calcifications. No significant bony findings. Moderate stool is present throughout the colon. IMPRESSION: Moderate constipation.
--- NOTE | 2023-10-20 18:10 | EDPHYS ---
Physician Documentation [facility] Name: Aleena Zhao Age: 23 yrs Sex: Female : 2000 Arrival Date: 10/20/2023 Time: 16:00 Bed 10 Private MD: ED Physician Kirby Diaz HPI: 10/20 16:47 This 23 yrs old Female presents to ER via Ambulatory with complaints of snw Constipation. 16:47 Onset: The symptoms/episode began/occurred 2 week(s) ago, and became worse 1 week(s) snw ago, and became persistent. Associated signs and symptoms: The patient has no apparent associated signs or symptoms. Modifying factors: The patient symptoms are alleviated by nothing. The patient has experienced similar episodes in the past. The patient has not recently seen a physician. taking lactulose, MOM, miralax, and now started taking Mom's Linzess. Historical: - Allergies: 16:33 No Known Allergies; iw - PMHx: 16:33 Asthma; Endometrosis; PCOS; iw - Immunization history:: Adult Immunizations up to date. - Social history:: Smoking status: Patient denies any tobacco usage or history of. ROS: 16:47 Constitutional: Negative for fever, chills, and weight loss, Eyes: Negative for injury, snw pain, redness, and discharge, ENT: Negative for injury, pain, and discharge, Neck: Negative for injury, pain, and swelling, Cardiovascular: Negative for chest pain, palpitations, and edema, Respiratory: Negative for shortness of breath, cough, wheezing, and pleuritic chest pain, Back: Negative for injury and pain, : Negative for injury, bleeding, discharge, and swelling, MS/Extremity: Negative for injury and deformity, Skin: Negative for injury, rash, and discoloration, Neuro: Negative for headache, weakness, numbness, tingling, and seizure, Psych: Negative for depression, anxiety, suicide ideation, homicidal ideation, and hallucinations, 16:47 Abdomen/GI: Positive for constipation, Exam: 16:47 Constitutional: This is a well developed, well nourished patient who is awake, alert, snw and in no acute distress. Head/Face: Normocephalic, atraumatic. Eyes: Pupils equal round and reactive to light, extra-ocular motions intact. Lids and lashes normal. Conjunctiva and sclera are non-icteric and not injected. Cornea within normal limits. Periorbital areas with no swelling, redness, or edema. ENT: Nares patent. No nasal discharge, no septal abnormalities noted. Tympanic membranes are normal and external auditory canals are clear. Oropharynx with no redness, swelling, or masses, exudates, or evidence of obstruction, uvula midline. Mucous membranes moist. Neck: Trachea midline, no thyromegaly or masses palpated, and no cervical lymphadenopathy. Supple, full range of motion without nuchal rigidity, or vertebral point tenderness. No Meningismus. Chest/axilla: Normal chest wall appearance and motion. Nontender with no deformity. No lesions are appreciated. Cardiovascular: Regular rate and rhythm with a normal S1 and S2. No gallops, murmurs, or rubs. Normal PMI, no JVD. No pulse deficits. Respiratory: Lungs have equal breath sounds bilaterally, clear to auscultation and percussion. No rales, rhonchi or wheezes noted. No increased work of breathing, no retractions or nasal flaring. Abdomen/GI: Soft, non-tender, with normal bowel sounds. No distension or tympany. No guarding or rebound. No evidence of tenderness throughout. Back: No spinal tenderness. No costovertebral tenderness. Full range of motion. Skin: Warm, dry with normal turgor. Normal color with no rashes, no lesions, and no evidence of cellulitis. MS/ Extremity: Pulses equal, no cyanosis. Neurovascular intact. Full, normal range of motion. Neuro: Awake and alert, GCS 15, oriented to person, place, time, and situation. Cranial nerves II-XII grossly intact. Motor strength 5/5 in all extremities. Sensory grossly intact. Cerebellar exam normal. Normal gait. Psych: Awake, alert, with orientation to person, place and time. Behavior, mood, and affect are within normal limits. Vital Signs: 16:30 BP 116 / 81; Pulse 54; Resp 16; Temp 97.9(TE); Pulse Ox 100% on R/A; Weight 78.02 kg; iw Height 5 ft. 3 in. ; Pain 0/10; 18:12 BP 112 / 80; Pulse 60; Resp 16; Pulse Ox 99% on R/A; Pain 0/10; mb9 16:30 Body Mass Index 30.47 (78.02 kg, 160.02 cm) iw 16:30 Pain Scale: Adult iw 18:12 Pain Scale: Adult mb9 MDM: 16:14 Patient medically screened. snw 17:41 Differential diagnosis: bowel obstruction, non-specific abd pain, urinary tract snw infection. 18:10 Data reviewed: vital signs, nurses notes, lab test result(s), radiologic studies. I snw considered the following discharge prescriptions or medication management in the emergency department Medications were administered in the Emergency Department. See MAR. Counseling: I had a detailed discussion with the patient and/or guardian regarding the historical points, exam findings, and any diagnostic results supporting the discharge/admit diagnosis, lab results, radiology results, the need for outpatient follow up, for definitive care, to return to the emergency department if symptoms worsen or persist or if there are any questions or concerns that arise at home. Special discussion: Based on the history and exam findings, there is no indication for further emergent testing or inpatient evaluation. I discussed with the patient/guardian the need to see the primary care provider for further evaluation of the symptoms. 10/20 16:25 Order name: Urine W/Microscopic (UAM); Complete Time: 17:23 snw 10/20 16:25 Order name: PREGU; Complete Time: 17:23 snw 10/20 16:44 Order name: Abdomen 1 View (KUB) XRAY; Complete Time: 18:09 snw Administered Medications: 17:09 Drug: Bisacodyl PO 10 mg PO once Route: PO; mb9 17:42 Follow up: Response: No adverse reaction mb9 17:48 Drug: Bisacodyl PA Suppository 10 mg PA once Route: PA; mb9 18:13 Follow up: Response: No adverse reaction mb9 17:48 Drug: Magnesium Citrate PO Liquid 300 ml PO once Route: PO; mb9 18:13 Follow up: Response: No adverse reaction mb9 17:48 Drug: Simethicone PO 240 mg PO once Route: PO; mb9 18:12 Follow up: Response: No adverse reaction mb9 Disposition: 20:47 Co-signature as Attending Physician, Kirby Diaz MD I reviewed the patient's care rt provided by the Advanced Practice Provider and agree with the diagnosis and treatment plan. Disposition Summary: 10/20/23 18:09 Discharge Ordered Notes: Location: Home snw Condition: Stable snw Diagnosis - Constipation, unspecified snw Followup: snw - With: Emergency Department - When: As needed - Reason: Worsening of condition Followup: snw - With: Private Physician - When: 2 - 3 days - Reason: Recheck today's complaints, Continuance of care, Re-evaluation by your physician Discharge Instructions: - Discharge Summary Sheet snw - Constipation, Adult snw - Rehydration, Adult snw Forms: - Medication Reconciliation Form snw - Thank You Letter snw - Antibiotic Education snw - Prescription Opioid Use snw - Patient Portal Instructions snw - Leadership Thank You Letter snw Signatures: Dispatcher [employer] EDMS Talya Rowley, LUGGAGE LINER-C LUGGAGE LINER-Csnw Ora Perez RN RN iw Breneman, Mary Beth, RN RN [email or web address] Kirby Diaz MD MD rt
--- NOTE | 2023-10-20 18:10 | ER ---
Nurse's Notes [facility] Name: Aleena Zhao Age: 23 yrs Sex: Female : 2000 Arrival Date: 10/20/2023 Time: 16:00 Bed 10 Private MD: Diagnosis: Constipation, unspecified Presentation: 10/20 16:30 Chief complaint: Constipation and N/V x 2 weeks, unrelieved by lactulose, Miralax, MOM. iw Coronavirus screen: At this time, the client does not indicate any symptoms associated with coronavirus-19. Ebola Screen: No symptoms or risks identified at this time. Initial Sepsis Screen: Does the patient meet any 2 criteria? No. Patient's initial sepsis screen is negative. Does the patient have a suspected source of infection? No. Patient's initial sepsis screen is negative. Risk Assessment: Do you want to hurt yourself or someone else? Patient reports no desire to harm self or others. Onset of symptoms was October 06, 2023. 16:30 Method Of Arrival: Ambulatory iw 16:30 Acuity: AME 3 iw Historical: - Allergies: 16:33 No Known Allergies; iw - PMHx: 16:33 Asthma; Endometrosis; PCOS; iw - Immunization history:: Adult Immunizations up to date. - Social history:: Smoking status: Patient denies any tobacco usage or history of. Screenin:09 [facility] ED Fall Risk Assessment (Adult) History of falling in the last 3 months, mb9 including since admission No falls in past 3 months (0 pts) Confusion or Disorientation No (0 pts) Intoxicated or Sedated No (0 pts) Impaired Gait No (0 pts) Mobility Assist Device Used No (0 pt) Altered Elimination No (0 pt) Score/Fall Risk Level 0 - 2 = Low Risk Oriented to surroundings, Maintained a safe environment, Educated pt \T\ family on fall prevention, incl call for assistance when getting out of bed. Abuse screen: Denies threats or abuse. Nutritional screening: No deficits noted. Tuberculosis screening: No symptoms or risk factors identified. Assessment: 17:08 General: Appears in no apparent distress. Behavior is calm, cooperative. Pain: Denies mb9 pain. Neuro: [place] Agitation-Sedation Scale (RASS): 0 - Alert and Calm Level of Consciousness is awake, alert, obeys commands, Oriented to person, place, time, situation, Appropriate for age. Cardiovascular: Patient's skin is warm and dry. Respiratory: Airway is patent Respiratory effort is even, unlabored, Respiratory pattern is regular, symmetrical. GI: Abdomen is round non-distended, Bowel sounds present X 4 quads. Abd is soft and non tender X 4 quads. Reports constipation. : No signs and/or symptoms were reported regarding the genitourinary system. EENT: No signs and/or symptoms were reported regarding the EENT system. Derm: Skin is pink, warm \T\ dry. Musculoskeletal: Range of motion: intact in all extremities. 18:13 Reassessment: Patient and/or family updated on plan of care and expected duration. Pain mb9 level reassessed. Patient is alert, oriented x 3, equal unlabored respirations, skin warm/dry/pink. pt able to have BM. Vital Signs: 16:30 BP 116 / 81; Pulse 54; Resp 16; Temp 97.9(TE); Pulse Ox 100% on R/A; Weight 78.02 kg; iw Height 5 ft. 3 in. ; Pain 0/10; 18:12 BP 112 / 80; Pulse 60; Resp 16; Pulse Ox 99% on R/A; Pain 0/10; mb9 16:30 Body Mass Index 30.47 (78.02 kg, 160.02 cm) iw 16:30 Pain Scale: Adult iw 18:12 Pain Scale: Adult mb9 ED Course: 16:02 Patient arrived in ED. im 16:08 Talya Rowley [facility]C [facility] snw 16:10 Kirby Diaz MD is Attending Physician. snw 16:33 Triage completed. iw 16:34 Arm band placed on. iw 17:04 PREGU Sent. mb9 17:04 Urine W/Microscopic (UAM) Sent. mb9 17:08 Luna Renee, MIKIE is Primary Nurse. mb9 17:09 Bed in low position. Call light in reach. Side rails up X 1. Client placed on mb9 continuous cardiac and pulse oximetry monitoring. NIBP monitoring applied. 17:09 No provider procedures requiring assistance completed. mb9 17:43 Abdomen 1 View (KUB) XRAY In Process Unspecified. EDMS 18:12 Patient did not have IV access during this emergency room visit. mb9 Administered Medications: 17:09 Drug: Bisacodyl PO 10 mg PO once Route: PO; mb9 17:42 Follow up: Response: No adverse reaction mb9 17:48 Drug: Bisacodyl MD Suppository 10 mg MD once Route: MD; mb9 18:13 Follow up: Response: No adverse reaction mb9 17:48 Drug: Magnesium Citrate PO Liquid 300 ml PO once Route: PO; mb9 18:13 Follow up: Response: No adverse reaction mb9 17:48 Drug: Simethicone PO 240 mg PO once Route: PO; mb9 18:12 Follow up: Response: No adverse reaction mb9 Medication: 17:09 VIS not applicable for this client. mb9 Outcome: 18:09 Discharge ordered by . jojo 18:16 Discharged to home ambulatory, mb9 18:16 Condition: stable 18:16 Discharge instructions given to patient, Instructed on discharge instructions, follow up and referral plans. Demonstrated understanding of instructions, follow-up care, 18:16 Patient left the ED. mb9 Signatures: Dispatcher [employer] EDTalya Murray, SAMPLER AND TEST PREPARER-C SAMPLER AND TEST PREPARER-Csnw Ora Perez, RN Luna Gonzales RN RN mb9 Tiffany Beckwith
[2023-10-20 19:58] VITALS: TEMP 97.9
[2023-10-20 19:59] VITALS: BP 112/80; O2SAT 99
== END 2023-10-20 18:16 | disposition home or self-care (01) ==
LOC: ER 16:00
DX: K59.00 Constipation, unspecified (principal)
CPT/HCPCS: 74018; 81001; 81025; 99284

== ENCOUNTER 2024-10-07 09:44 | Emergency (ER) | payer OTHER ==
--- OUTSIDE RECORDS SUMMARY | 2024-10-07 09:50 | XMS REPORT | Continuity of Care Document ---
Author Name Unknown Address [address] [facility] [address] [place] [address] [facility] Address [address] [facility] [address] [place] [address] Care Team Providers Care Weir Fisherman Name Role Phone MILATUYETPAM C Primary Care Physician Unav ailable Bruno Alvarenga Attending Clinician Unavailable JOHN MELARA Attending Clinician Unavailable KAYLAH GUERRERO Attending Clinician Unavailable LAB11 Attending Clinician Unavailable LUIS BILLINGS Attending Clinician Unavailable TONE GUERRERO Attending Clinician Unavailable CHINEDU BRANDON Attending Clinician Unavailable VIELKA RUBIO Attending Clinician UnavailDEBORA Carmona Attending Clinician Unavailable LAB90 Attending Clinician Unavailable TIFFANY OLIVO Attending Clinician Unavailable Doctor Unassigned, [place] Attending Clinician U navailable EVANS GUSMAN Attending Clinician Unavail able EVANS GUSMAN Attending Clinician Unavail Evans Hua MD Attending Clinician Tiffany Olivo MD Attending Clinician Ana Talley MD Attending Clinician [phone] ANA TALLEY Attending Clinician Unavailable STANISLAV BRENNAN Attending Clinician Unavailable Stanislav Chopra Attending Clinician [phone] Delano Wright DO Attending Clinician [phone] DELANO WRIGHT Attending Clinician Unavailable ZAK ASIF M.D. Attending Clinician Unav ailable JHAY-EBPDZ-IE, OSIRIS Attending Clinician Cindy vailable Bruno Alvarenga Admitting Clinician Unavailable STANISLAV BRENNAN Admitting Clinician Unavailable DELANO WRIGHT Admitting Clinician Unavailable Payers Payer Name Policy Type Policy Number Effective Date Expirati on Date Source LO 2 [id number] 2024 00:00:00 [facility] [id number] 2021 00:00:00 Problems Condition Name Condition Details Condition Category Status Onset Date Resolution Date Last Treatment Date Treating Clinician Comments Source Intractabl e migraine with aura with status migrainosu s Intractabl e migraine with aura with status migrainosu s Disease Active 05-12 00:00: 00 Aracelis Seybold - Externa l YARELIS (generaliz ed anxiety disorder) YARELIS (generaliz ed anxiety disorder) Disease Active 05-12 00:00: 00 Aracelis Seybold - Externa l Vertigo Vertigo Disease Active 05-12 00:00: 00 Aracelis Seybold - Externa l Floaters, bilateral Floaters, bilateral Disease Active 05-12 00:00: 00 Aracelis Seybold - Externa l Leukorrhea , not specified as infective Leukorrhea , not specified as infective Disease Active 12-31 00:00: [address] 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 Cervical high risk human papillomav irus (HPV) DNA test positive Problem [facility] Ovarian dysfunctio n Ovarian Dysfunctio n Problem [facility] Polycystic ovaries PCOS (polycysti c ovarian syndrome) Problem [facility] Amenorrhea Amenorrhea [facility] Intermenst rual bleeding - irregular Excessive and frequent menstruati on with irregular cycle Problem [facility] Vaginal Papanicola ou smear positive for malignant neoplasm Cytologic evidence of malignancy on smear of vagina Problem [facility] Endometrio sis Endometrio sis Problem [facility] Dysmenorrh ea Dysmenorrh ea Problem [facility] Dysfunctio nal uterine bleeding Dysfunctio nal Uterine Bleeding Problem [facility] Psychologi c dyspareuni a Dyspareuni a not due to a substance or known physiologi madisyn condition Problem [facility] consult consult Problem [facility] Allergies, Adverse Reactions, Alerts Allergy Name Allergy Type Status Severity Reaction(s) Onset Date Inactive Date Treating Clinician Comments Source No Known Allergie s DA Active U 2019-12 00:00: 00 [facility] No Known Allergie s DA Active U 2019-12 00:00: 00 [facility] No Known Allergie s DA Active U 02-17 00:00: 00 [facility] No Known Allergie s DA Active U 02-17 00:00: 00 [facility] No Known Allergie s DA Active U 2014-12 00:00: 00 [facility] No Known Allergie s DA Active U 2014-12 00:00: 00 [facility] NO KNOWN ALLERGIE S Drug Class Active [facility] [place] Social History Social Habit Start Date Stop Date Quantity Comments Source Sexual orientation Екатерина Haas - External History of tobacco use Cigarette Smoker Aracelis verduzco - External Alcoholic beverage intake 2024-07-19 00:00:00 2024-07-19 00:00:00 Current drinker of alcohol (finding) Aracelis Haas - External Alcohol intake 2024-03-04 00:00:00 2024-03-04 00:00:00 Current drinker of alcohol (finding) Aracelis Haas - External History of Social function 2024-01-30 00:00:00 2024-01-30 00:00:00 Aracelis Haas - External Alcohol Comment 2024-01-30 00:00:00 2024-01-30 00:00:00 socially Aracelis Haas - External Tobacco use and exposure 2024-01-30 00:00:00 2024-01-30 00:00:00 Smokeless tobacco non-user Aracelis Haas - External Exposure to SARS-CoV-2 (event) 2022-10-18 00:00:00 2022-10-28 13:37:[address] [facility] Sex assigned at 2000 00:00:00 2000 00:00:00 Aracelis Haas - Jesus Smoking Status Start Date Stop Date Source Ex-smoker 2024-01-30 00:00:00 2024-01-30 00:00:00 Екатерина powers Waldo - External Never smoked tobacco [facility] Medications Ordered Medication Name Filled Medication Name Start Date Stop Date Current Medication? Ordering Clinician Indication Dosage Frequency Signature (SIG) Comments Components Source Nortriptyli ne HCl 10 MG oral Capsule 07-19 00:00: 00 Yes [id number] 10mg QD Take 1 capsule (10 mg total) by mouth nightly. Aracelis powers Rizatriptan Benzoate 5 MG oral TABLET DISPERSIBLE 07-19 00:00: 00 Yes [id number] 5mg QD Take 1 tablet (5 mg total) by mouth daily as needed for migraine (May repeat in 2 hours if unresolved . Do not exceed 30 mg in 24 hours.). Aracelis powers Ondansetron HCl 4 MG oral Tablet 06-30 00:00: 00 Yes [id number] 4mg Q.[id number] 3D Take 1 tablet (4 mg total) by mouth every 8 hours as needed for nausea. Aracelis powers Benzonatate 100 MG oral Capsule 06-30 00:00: 00 07-19 00:00 :00 No [id number] 100mg Q.[id number] 3D Take 1 capsule (100 mg total) by mouth 3 times daily as needed for cough. Aracelis powers PAXLOVID STANDARD (30) (300/100) Therapy Pack 06-30 00:00: 00 07-06 04:59 :00 No [id number] Take two 150 mg nirmatrelv ir (pink) tablets with one 100 mg ritonavir (white) tablet by mouth two times daily for 5 days. Aracelis powers Rizatriptan Benzoate 5 MG oral TABLET DISPERSIBLE 05-12 00:00: 00 07-19 00:00 :00 No [id number] 5mg Take 1 tablet (5 mg total) by mouth once as needed for migraine (May repeat in 2 hours if unresolved . Do not exceed 30 mg in 24 hours.). Aracelis powers Sertraline HCl 25 MG oral Tablet 05-12 00:00: 00 07-19 00:00 :00 No [id number] 25mg QD Take 1 tablet (25 mg total) by mouth daily. Aracelis powers Topiramate 25 MG oral Tablet 05-12 00:00: 00 05-12 00:00 :00 No [id number] 25mg Take 1 tablet (25 mg total) by mouth 2 times daily. Aracelis powers linaCLOtide (Linzess) 145 MCG oral Capsule 05-04 00:00: 00 07-19 00:00 :00 No [id number] 145ug QD Take 1 capsule (145 mcg total) by mouth daily. Aracelis powers Ondansetron (ZOFRAN) 4 MG oral TABLET DISPERSIBLE 05-04 00:00: 00 06-30 00:00 :00 No [id number] 4mg Q.[id number] 3D Take 1 tablet (4 mg total) by mouth every 8 hours as needed for nausea. Aracelis powers Mounjaro 5 MG/0.5ML subcutaneou s Solution Pen-injecto r 04-29 00:00: 00 Yes Inject 1 injection into the skin once a week for 4 weeks Aracelis powers TRIMETHOPRI M-POLYMYXIN B 77382-8.1 UNIT/ML-% ophthalmic Solution 03-24 00:00: 00 07-19 00:00 :00 No [id number] 1[drp] Q4H Apply 1 drop to eye every 4 (four) hours. Aracelis powers Benzonatate (Tessalon Perles) 100 MG oral Capsule 03-24 00:00: 00 06-30 00:00 :00 No [id number] 100mg Q.[id number] 3D Take 1 capsule (100 mg total) by mouth 3 times daily as needed for cough. Aracelis powers Lidocaine HCl (Lidocaine Viscous HCl) 2 % mouth/throa t Solution 03-19 00:00: 00 07-19 00:00 :00 No [id number] 15mL Take 15 mL by mouth every 3 hours as needed. Aracelis powers Azelastine HCl 0.1 % nasal Solution 03-19 00:00: 00 07-19 00:00 :00 No [id number] 1{spray } Q.5D Use 1 spray in each nostril 2 times daily. Aracelis powers Norgestimat e-Ethinyl Estradiol (Ortho Tri-Cyclen Lo) 0.18/0.215/ 0.25 MG-25 MCG oral Tablet 03-14 00:00: 00 03-24 00:00 :00 No [id number] 1{tbl} Take 1 tablet by mouth daily. Aracelis powers Nitrofurant oin Monohyd Macro (Macrobid) 100 MG oral Capsule 03-14 00:00: 00 03-24 00:00 :00 No [id number] 100mg Take 1 capsule (100 mg total) by mouth 2 times daily. Aracelis powers Dulaglutide (Trulicity) 0.75 MG/0.5ML subcutaneou s Solution Pen-injecto r 03-04 13:53: 18 03-04 00:00 :00 No Trulicity Aracelis powers Norethin-Et h Estrad-Fe Biphas (Lo Loestrin Fe) 1 MG-10 MCG / 10 MCG oral Tablet 03-04 13:27: 08 Yes Lo Loestrin Fe Aracelis powers Levonorgest rel (Liletta, 52 MG,) 20.1 MCG/DAY intrauterin e IUD 03-04 13:27: 08 03-24 00:00 :00 No Liletta Aracelis powers buPROPion HCl (WELLBUTRIN OR) 03-04 13:27: 08 03-24 00:00 :00 No Wellbutrin Bonnie powers Pantoprazol e Sodium 40 MG oral Tablet Delayed Response 03-04 13:27: 08 03-24 00:00 :00 No 40mg Take 1 tablet (40 mg total) by mouth every 24 hours. Aracelis powers Tirzepatide -Weight Management (Zepbound) 5 MG/0.5ML subcutaneou s Solution Auto-inject or 03-04 00:00: 00 Yes [id number] 5mg Inject 0.5 mL (5 mg total) into the skin once a week. Aracelis powers Tirzepatide -Weight Management (Zepbound) 5 MG/0.5ML subcutaneou s Solution Auto-inject or 03-04 00:00: 00 05-04 00:00 :00 No [id number] 5mg Inject 0.5 mL (5 mg total) into the skin once a week. Aracelis powers Ondansetron (ZOFRAN) 4 MG oral TABLET DISPERSIBLE 03-04 00:00: 00 05-04 00:00 :00 No [id number] 4mg Q.[id number] 3D Take 1 tablet (4 mg total) by mouth every 8 hours as needed for nausea. Aracelis powers Topiramate 25 MG oral Tablet 03-04 00:00: 00 05-04 00:00 :00 No [id number] 25mg Take 1 tablet (25 mg total) by mouth 2 times daily. Aracelis powers Mounjaro 2.5 MG/0.5ML subcutaneou s Solution Pen-injecto r 02-02 00:00: 00 05-04 00:00 :00 No 2.5mg Inject 0.5 mL (2.5 mg total) into the skin once a week. Aracelis powers Dulaglutide (Trulicity) 0.75 MG/0.5ML subcutaneou s Solution Pen-injecto r 02-01 15:02: 07 02-01 00:00 :00 No .75mg Inject 0.75 mg into the skin once a week. Aracelis powers Tirzepatide -Weight Management 2.5 MG/0.5ML subcutaneou s Solution Auto-inject or 02-01 00:00: 00 Yes [id number] 2.5mg Inject 0.5 mL (2.5 mg total) into the skin once a week. Aracelis powers Topiramate 25 MG oral Tablet 02-01 00:00: 00 Yes [id number] 25mg Take 1 tablet (25 mg total) by mouth 2 times daily. Aracelis powers Sumatriptan Succinate 25 MG oral Tablet 02-01 00:00: 00 05-12 00:00 :00 No [id number] 25mg Take 1 tablet (25 mg total) by mouth once as needed for migraine (May repeat in 2 hours if unresolved . Do not exceed 200 mg in 24 hours.). Aracelis powers linaCLOtide (Linzess) 145 MCG oral Capsule 02-01 00:00: 00 05-04 00:00 :00 No [id number] 145ug Take 1 capsule (145 mcg total) by mouth daily. Aracelis powers Fluconazole 150 MG oral Tablet 02-01 00:00: 00 03-24 00:00 :00 No [id number] 150mg Take 1 tablet (150 mg total) by mouth every 72 hours. Aracelis powers Budesonide- Formoterol Fumarate 160-4.5 MCG/ACT inhalation Aerosol 2022-12 207 00:00: 00 02-01 00:00 :00 No 2{puff} Inhale 2 puffs into the lungs 2 times daily. Aracelis powers Albuterol HFA 108 (90 Base) MCG/ACT IN AERS 08-21 00:00: 00 08-21 04:59 :00 No 2{puff} Q.25D Inhale 2 puffs into the lungs every 6 hours as needed. Aracelis powers Dulaglutide 1.5 MG/0.5ML subcutaneou s Solution Pen-injecto r 8-10 00:00: 00 02-01 00:00 :00 No 1.5mg Inject 1.5 mg into the skin once a week. Aracelis powers Provera 10 MG Provera 10 MG 12-13 00:00: 00 No 1{table t_with_ food} QD Provera 10 MG Provera 10 MG Provera 10 MG - 00:00: 00 No 1{table t_with_ food} QD Provera 10 MG Provera 10 MG Provera 10 MG - 00:00: 00 No 1{table t_with_ food} QD Provera 10 MG Provera 10 MG Provera 10 MG - 00:00: 00 No 1{table t_with_ food} QD Provera 10 MG SUMAtriptan 50 mg tablet 2021-12 14:18: 39 10-28 00:00 :00 No 50mg Take 50 mg by mouth as needed for Migraine. [facility] sumatriptan 100 mg tablet 2021-12 00:00: 00 Yes [id number] 100mg Take 1 tablet by mouth as needed for Migraine. [facility] dulaglutide (TRULICITY) 0.75 mg/0.5 mL PnIj 2021-12 14:28: 44 Yes inject under the skin. [facility] SUMAtriptan 50 mg tablet 2021-12 14:28: 44 Yes 50mg Take 50 mg by mouth as needed for Migraine. [facility] NaCl 0.9% (NS) IV infusion 1,000 mL 08-26 07:45: 00 08-26 07:54 :00 No 1000mL at 999 mL/hr, Intravenou s, ONCE, 1 dose, On Fri08/26/22 at 0245, Routine [facility] ketorolac (TORADOL) injection 60 mg 08-26 07:15: 00 08-26 06:28 :00 No 60mg 60 mg, Intramuscu lar, ONCE, 1 dose, On Fri08/26/22 at 0215, Routine [facility] methocarbam oL (ROBAXIN) tablet 1,000 mg 08-26 06:15: 00 08-26 06:16 :00 No 1000mg 1,000 mg, Oral, ONCE, 1 dose, On Fri08/26/22 at 0115, ROSALEE [facility] methocarbam oL 500 mg tablet 08-26 00:00: 00 Yes [id number] 500mg Take 1 tablet by mouth every 6 (six) hours as needed for Pain (scale 7-10) (MUSCLE SPASM). [facility] ketorolac 10 mg tablet 08-26 00:00: 00 Yes [id number] 10mg Take 1 tablet by mouth every 6 (six) hours as needed for Pain (scale 7-10). [facility] HYDROcodone -acetaminop hen (NORCO 5) 5-325 mg tablet 1 tablet 07-05 05:15: 00 07-05 06:29 :00 No 1{tbl} 1 tablet, Oral, ONCE, 1 dose, On Fri07/05/22 at 0015, ROSALEE [facility] Cyclobenzap rine HCl 10 MG Cyclobenzap rine HCl 10 MG 03-28 00:00: 00 No TID Cyclobenza fernanda HCl 10 MG Cyclobenzap rine HCl 10 MG Cyclobenzap rine HCl 10 MG 03-28 00:00: 00 No TID Cyclobenza fernanda HCl 10 MG Cyclobenzap rine HCl 10 MG Cyclobenzap rine HCl 10 MG 0 03-28 00:00: 00 No TID Cyclobenza fernanda HCl 10 MG Cyclobenzap rine HCl 10 MG Cyclobenzap rine HCl 10 MG 2021-0 03-28 00:00: 00 No TID Cyclobenza fernanda HCl 10 MG ondansetron 4 mg disintegrat ing tablet 02-22 00:00: 00 Yes [id number] 4mg Take 1 tablet by mouth every 8 (eight) hours as needed for Nausea and Vomiting (N/V). [facility] sucralfate 1 gram tablet 02-22 00:00: 00 07-05 00:00 :00 No [id number] 1g Take 1 tablet by mouth before meals and at bedtime. [facility] dicyclomine (BENTYL) 10 mg capsule 02-22 00:00: 00 07-05 00:00 :00 No [id number] 10mg Take 1 capsule by mouth every 8 (eight) hours as needed for Abdominal pain. [facility] Balcoltra 0.1-20 MG-MCG(21) Balcoltra 0.1-20 MG-MCG(21) 2020-12 00:00: 00 No QD Balcoltra 0.1-20 MG-MCG(21) Balcoltra 0.1-20 MG-MCG(21) Balcoltra 0.1-20 MG-MCG(21) 2020-12 00:00: 00 No QD Balcoltra 0.1-20 MG-MCG(21) Balcoltra 0.1-20 MG-MCG(21) Balcoltra 0.1-20 MG-MCG(21) 2020-12 00:00: 00 No QD Balcoltra 0.1-20 MG-MCG(21) Balcoltra 0.1-20 MG-MCG(21) Balcoltra 0.1-20 MG-MCG(21) 2020-12 0- 00:00: 00 No QD Balcoltra 0.1-20 MG-MCG(21) Lo Loestrin Fe 1 MG-10 MCG / 10 MCG Lo Loestrin Fe 1 MG-10 MCG / 10 MCG 05-29 00:00: 00 No 1{table t} QD Lo Loestrin Fe 1 MG-10 MCG / 10 MCG Lo Loestrin Fe 1 MG-10 MCG / 10 MCG Lo Loestrin Fe 1 MG-10 MCG / 10 MCG 05-29 00:00: 00 No 1{table t} QD Lo Loestrin Fe 1 MG-10 MCG / 10 MCG Lo Loestrin Fe 1 MG-10 MCG / 10 MCG Lo Loestrin Fe 1 MG-10 MCG / 10 MCG 05-29 00:00: 00 No 1{table t} QD Lo Loestrin Fe 1 MG-10 MCG / 10 MCG Lo Loestrin Fe 1 MG-10 MCG / 10 MCG Lo Loestrin Fe 1 MG-10 MCG / 10 MCG 05-29 00:00: 00 No 1{table t} QD Lo Loestrin Fe 1 MG-10 MCG / 10 MCG Adipex-P 37.5 MG Adipex-P 37.5 MG 2020-0 -06 00:00: 00 No 1{capsu le} QD Adipex-P 37.5 MG Adipex-P 37.5 MG Adipex-P 37.5 MG 2020-0 5-06 00:00: 00 No 1{capsu le} QD Adipex-P 37.5 MG Adipex-P 37.5 MG Adipex-P 37.5 MG 2020-0 5-06 00:00: 00 No 1{capsu le} QD Adipex-P 37.5 MG Adipex-P 37.5 MG Adipex-P 37.5 MG 2020-0 5-06 00:00: 00 No 1{capsu le} QD Adipex-P 37.5 MG Acetaminoph en-Codeine #3 300-30 MG Acetaminoph en-Codeine #3 300-30 MG 2019-12 00:00: 00 No 1{table t_as_ne eded} QID Acetaminop hen-Codein e #3 300-30 MG Ibuprofen 800 MG Ibuprofen 800 MG 2019-12 00:00: 00 No TID Ibuprofen 800 MG Acetaminoph en-Codeine #3 300-30 MG Acetaminoph en-Codeine #3 300-30 MG 2019-12 00:00: 00 No 1{table t_as_ne eded} QID Acetaminop hen-Codein e #3 300-30 MG Ibuprofen 800 MG Ibuprofen 800 MG 2019-12 00:00: 00 No TID Ibuprofen 800 MG Acetaminoph en-Codeine #3 300-30 MG Acetaminoph en-Codeine #3 300-30 MG 2019-12 00:00: 00 No 1{table t_as_ne eded} QID Acetaminop hen-Codein e #3 300-30 MG Ibuprofen 800 MG Ibuprofen 800 MG 2019-12 00:00: 00 No TID Ibuprofen 800 MG Ibuprofen 800 MG Ibuprofen 800 MG 2019-12 00:00: 00 No TID Ibuprofen 800 MG Acetaminoph en-Codeine #3 300-30 MG Acetaminoph en-Codeine #3 300-30 MG 2019-12 00:00: 00 No 1{table t_as_ne eded} QID Acetaminop hen-Codein e #3 300-30 MG Zoloft 50 MG Zoloft 50 MG 2019-12 00:00: 00 No 1{table t} QD Zoloft 50 MG Zoloft 50 MG Zoloft 50 MG 2019-12 00:00: 00 No 1{table t} QD Zoloft 50 MG Zoloft 50 MG Zoloft 50 MG 2019-12 00:00: 00 No 1{table t} QD Zoloft 50 MG Zoloft 50 MG Zoloft 50 MG 2019-12 00:00: 00 No 1{table t} QD Zoloft 50 MG Macrobid 100 MG Macrobid 100 MG 2019-12 0-08 00:00: 00 No 1{capsu le} BID Macrobid 100 MG Macrobid 100 MG Macrobid 100 MG 2020-1 0-08 00:00: 00 No 1{capsu le} BID Macrobid 100 MG Macrobid 100 MG Macrobid 100 MG 2019-1 0-08 00:00: 00 No 1{capsu le} BID Macrobid 100 MG Macrobid 100 MG Macrobid 100 MG 2020-1 0-08 00:00: 00 No 1{capsu le} BID Macrobid 100 MG Pepcid 20 MG Pepcid 20 MG 2020-0 5-05 00:00: 00 No BID Pepcid 20 MG Pepcid 20 MG Pepcid 20 MG 2020-0 5-05 00:00: 00 No BID Pepcid 20 MG Pepcid 20 MG Pepcid 20 MG 2020-0 5-05 00:00: 00 No BID Pepcid 20 MG Pepcid 20 MG Pepcid 20 MG 2020-0 5-05 00:00: 00 No BID Pepcid 20 MG Prometrium 200 MG Prometrium 200 MG 2018- 0-25 00:00: 00 No Prometrium 200 MG Promethazin e HCl 25 MG Promethazin e HCl 25 MG 2018- 0-25 00:00: 00 No Promethazi ne HCl 25 MG Prometrium 200 MG Prometrium 200 MG 2018- 0-25 00:00: 00 No Prometrium 200 MG Promethazin e HCl 25 MG Promethazin e HCl 25 MG 2018- 0-25 00:00: 00 No Promethazi ne HCl 25 MG Prometrium 200 MG Prometrium 200 MG 2018- 0-25 00:00: 00 No Prometrium 200 MG Promethazin e HCl 25 MG Promethazin e HCl 25 MG 2018-1 0-25 00:00: 00 No Promethazi ne HCl 25 MG Prometrium 200 MG Prometrium 200 MG 2018- 0-25 00:00: 00 No Prometrium 200 MG Promethazin e HCl 25 MG Promethazin e HCl 25 MG 2018- 0-25 00:00: 00 No Promethazi ne HCl 25 MG RhoGAM Ultra-Filte red Plus 1500 UNIT RhoGAM Ultra-Filte red Plus 1500 UNIT No RhoGAM Ultra-Filt ered Plus 1500 UNIT Pantoprazol e Sodium 40 MG Pantoprazol e Sodium 40 MG No 1{table t} QD Pantoprazo le Sodium 40 MG Lo Loestrin Fe Lo Loestrin Fe No Lo Loestrin Fe Pantoprazol e Sodium 40 MG Pantoprazol e Sodium 40 MG No 1{table t} QD Pantoprazo le Sodium 40 MG RhoGAM Ultra-Filte red Plus 1500 UNIT RhoGAM Ultra-Filte red Plus 1500 UNIT No RhoGAM Ultra-Filt ered Plus 1500 UNIT Lo Loestrin Fe Lo Loestrin Fe No Lo Loestrin Fe Pantoprazol e Sodium 40 MG Pantoprazol e Sodium 40 MG No 1{table t} QD Pantoprazo le Sodium 40 MG RhoGAM Ultra-Filte red Plus 1500 UNIT RhoGAM Ultra-Filte red Plus 1500 UNIT No RhoGAM Ultra-Filt ered Plus 1500 UNIT Trulicity Trulicity No Trulicity RhoGAM Ultra-Filte red Plus 1500 UNIT RhoGAM Ultra-Filte red Plus 1500 UNIT No RhoGAM Ultra-Filt ered Plus 1500 UNIT Pantoprazol e Sodium 40 MG Pantoprazol e Sodium 40 MG No 1{table t} QD Pantoprazo le Sodium 40 MG Immunizations Ordered Immunization Name Filled Immunization Name Date Status Comments Source Influenza Virus Vaccine, No Preserv, age 6 months and up Unknown Completed Aracelis coates - External Hepatitis B, Adolescent Or Pediatric Unknown Completed Aracelis Haas - External Hib (HbOC) Unknown Completed Aracelis wagner External HIB- Haemophilus Influenzae Type B Unknown Completed Aracelis garcía External Meningococcal Vaccine- Conjugate(Menactra) Unknown Completed Aracelis coates External Bexsero (Meningococcal Group B) Unknown Completed [facility] External MMR- Measles, Mumps, Rubella Unknown Completed [facility] External Meningococcal Vaccine Polysaccharide Unknown Completed Aracelis Morgan d - External Pneumococcal Vaccine, Conjugate 7 Unknown Completed Aracelis Haas External IPV- Inactivated Polio Vaccine Unknown Completed [facility] External Tdap- (Boostrix, Adacel) Unknown Completed [facility] External Varicella Vaccine Unknown [facility] D[facility]P Unspecified Unknown Completed [facility] - External Influenza Virus Vaccine, No Preserv, age 6 months and up Unknown Completed Aracelis [facility] - External Hepatitis B, Adolescent Or Pediatric [facility] - External HIB- Haemophilus Influenzae Type B Unknown Completed Aracelis [facility] bold - External Meningococcal Vaccine- Conjugate(Menactra) Unknown Completed [facility] - External Bexsero (Meningococcal Group B) Unknown [facility] MMR- Measles, Mumps, Rubella [facility]ine Polysaccharide [facility] Pneumococcal Vaccine, Conjugate 7 Unknown Completed Aracelis Seybold - External IPV- Inactivated Polio Vaccine Unknown Completed Aracelis Seybold - External Tdap- (Boostrix, Adacel) [facility] Varicella Vaccine Unknown Completed lsey Seybold - External DTaP Unspecified Unknown Completed [facility] - External Influenza Virus Vaccine, No Preserv, age 6 months and up [facility], Adolescent Or Pediatric [facility] Com[facility] - External HIB- Haemophilus Influenzae Type B Unknown Completed Aracelistrice Carnes bold - External Meningococcal Vaccine- Conjugate(Menactra) Unknown Completed [facility] - External Bexsero (Meningococcal Group B) Unknown Completed [facility] - External MMR- Measles, Mumps, Rubella Unknown [facility] M[facility] Vaccine Polysaccharide Unknown Completed Aracelis gildaol d - External Pneumococcal Vaccine, Conjugate 7 [facility]- Inactivated Polio Vaccine Unknown Completed [facility] - External Tdap- (Boostrix, Adacel) Unknown [facility] Varicella Vaccine Unknown Completed Ke lsey Seybold - External DTaP Unspecified Unknown Completed [facility] Seybold - External Influenza Virus Vaccine, No Preserv, age 6 months and up Unknown Completed [facility]bold - External Hepatitis B, Adolescent Or Pediatric Unknown Completed Aracelis Seybold - External Hib (HbOC) Unknown Completed [facility] - External HIB- Haemophilus Influenzae Type B Unknown Completed [facility] bold - External Meningococcal Vaccine- Conjugate(Menactra) Unknown Completed [facility] eybold - External Bexsero (Meningococcal Group B) Unknown Completed Aracelis Seybold - External MMR- Measles, Mumps, Rubella Unknown Completed [facility] Seybold - External Meningococcal Vaccine Polysaccharide Unknown Completed Aracelis Seybol d - External Pneumococcal Vaccine, Conjugate 7 Unknown Completed Ar[facility]el[facility] Seybold - External IPV- Inactivated Polio [facility]ine [facility]- (Boostrix, Adacel) Unknown Completed [facility] Seybold - External Varicella Vaccine Unknown Completed [facility] - External DTaP Unspecified Unknown Completed [facility] Seybold - External Influenza Virus Vaccine, No Preserv, age 6 months and up Unknown Completed [facility] eybold - External Hepatitis B, Adolescent Or Pediatric Unknown Completed [facility] Seybold - External Hib (HbOC) Unknown Completed [facility] ybold - External HIB- Haemophilus Influenzae Type B Unknown Completed [facility] bold - External Meningococcal Vaccine- Conjugate(Menactra) Unknown Completed [facility] eybold - External Bexsero (Meningococcal Group B) Unknown Completed [facility] Seybold - External MMR- Measles, Mumps, Rubella Unknown [facility] Polysaccharide [facility], Conjugate 7 [facility] IPV- Inactivated Polio Vaccine Unknown [facility] Tdap- (Boostrix, Adacel) Unknown [facility] Varicella Vaccine Unknown Completed [facility] Seybold - External DTaP Unspecified Unknown Completed [facility] Seybold - External Influenza Virus Vaccine, No Preserv, age 6 months and up Unknown Completed [facility]bold - External Hepatitis B, Adolescent Or Pediatric Unknown Completed [facility] Seybold - External Hib (HbOC) Unknown Completed [facility] Se ybold - External HIB- Haemophilus Influenzae Type B Unknown Completed [facility] bold - External Meningococcal Vaccine- Conjugate(Menactra) Unknown Completed [facility] eybold - External Bexsero (Meningococcal Group B) Unknown Completed [facility] Seybold - External MMR- Measles, Mumps, Rubella Unknown Completed Ar[facility]el[facility] Seybold - External Meningococcal Vaccine Polysaccharide Unknown Completed Aracelis Seybol d - External Pneumococcal Vaccine, Conjugate 7 Unknown Completed [facility] Seybold - External IPV- Inactivated Polio Vaccine Unknown Completed [facility] Seybold - External Tdap- (Boostrix, Adacel) Unknown Completed [facility] Elizabethold - External Varicella Vaccine Unknown Completed Zach giordano Seybold - External DTaP Unspecified Unknown Completed Dennis carnes Seybold - External DTaP Unspecified Unknown Completed Dennis Elizabethold - External Influenza Virus Vaccine, No Preserv, age 6 months and up Unknown Completed Ar[facility]el[facility] Kang eybold - External Hepatitis B, Adolescent Or Pediatric Unknown Completed [facility]el[facility] Elizabethold - External Hib (HbOC) Unknown Completed Ar[facility]elis Escobedo ybold - External HIB- Haemophilus Influenzae Type B Unknown Completed [facility]el[facility] Carnes bold - External Meningococcal Vaccine- Conjugate(Menactra) Unknown Completed Aracel[facility] Kang eybold - External Bexsero (Meningococcal Group B) Unknown Completed [facility] Haas - External MMR- Measles, Mumps, Rubella Unknown Completed [facility] Haas - External Meningococcal Vaccine Polysaccharide Unknown Completed [facility] Elizabeth[facility] d - External Pneumococcal Vaccine, Conjugate 7 Unknown Completed [facility]el[facility] Haas - External IPV- Inactivated Polio Vaccine Unknown Completed Ar[facility]el[facility] Haas - External Tdap- (Boostrix, Adacel) Unknown Completed [facility] Elizabethold - External Varicella Vaccine Unknown Completed Zach giordano Seybold - External Influenza Virus Vaccine, No Preserv, age 6 months and up Unknown Completed Aracel[facility] Kang eybold - External Hepatitis B, Adolescent Or Pediatric Unknown Completed [facility]el[facility] Haas - External Hib (HbOC) Unknown Completed Aracelis wagner - External HIB- Haemophilus Influenzae Type B Unknown Completed Aracelis garcía - External Meningococcal Vaccine- Conjugate(Menactra) Unknown Completed Aracelis craigbold - External Bexsero (Meningococcal Group B) Unknown Completed Aracelis Haas - External MMR- Measles, Mumps, Rubella Unknown Completed Aracelis Elizabethold - External Meningococcal Vaccine Polysaccharide Unknown Completed Aracelis Elizabethol d - External Pneumococcal Vaccine, Conjugate 7 Unknown Completed Aracelis Haas - External IPV- Inactivated Polio Vaccine Unknown Completed Ar[facility]el[facility] Haas - External Tdap- (Boostrix, Adacel) Unknown Completed [facility]acel[facility] Escobedoybold - External Varicella Vaccine Unknown Completed Zach giordano Seybold - External DTaP Unspecified Unknown Completed Dennis carnes Seybold - External Vital Signs Vital Name Observation Time Observation Value Comments S ource Systolic blood pressure 2024-07-19 13:02:00 113 mm[Hg] Aracelis Seybo ld - External Diastolic blood pressure 2024-07-19 13:02:00 64 mm[Hg] Aracelis Seybo ld - External Heart rate 2024-07-19 13:02:00 56 /min Kelse y Seybold - External Body temperature 2024-07-19 13:02:00 37.06 Karli Aracelis Seybold - External Respiratory rate 2024-07-19 13:02:00 16 /min Ar[facility]elis Seybold - External Body height 2024-07-19 13:02:00 160 cm Kayli ey Seybold - External Body weight 2024-07-19 13:02:00 75.297 kg Kayli ey Seybold - External BMI 2024-07-19 13:02:00 29.41 kg/m2 Kayli ey Seybold - External Systolic blood pressure 2024-05-12 21:19:00 90 mm[Hg] Aracelis Seybo ld - External Diastolic blood pressure 2024-05-12 21:19:00 64 mm[Hg] Aracelis Seybo ld - External Heart rate 2024-05-12 21:19:00 77 /min Kelse y Seybold - External Body temperature 2024-05-12 21:19:00 36.61 Karli Aracelis Seybold - External Respiratory rate 2024-05-12 21:19:00 14 /min Aracelis Seybold - External Body height 2024-05-12 21:19:00 160 cm Kayli ey Seybold - External Body weight 2024-05-12 21:19:00 75.297 kg Kayli ey Seybold - External BMI 2024-05-12 21:19:00 29.41 kg/m2 Kayli ey Seybold - External Systolic blood pressure 2024-05-04 17:34:00 96 mm[Hg] Aracelis Seybo ld - External Diastolic blood pressure 2024-05-04 17:34:00 64 mm[Hg] Aracelis Seybo ld - External Heart rate 2024-05-04 17:34:00 88 /min Kelse y Seybold - External Body temperature 2024-05-04 17:34:00 37.06 Karli Aracelis Seybold - External Respiratory rate 2024-05-04 17:34:00 18 /min Aracelis Seybold - External Body height 2024-05-04 17:34:00 160 cm Kayli ey Seybold - External Body weight 2024-05-04 17:34:00 75.751 kg Kayli ey Seybold - External BMI 2024-05-04 17:34:00 29.58 kg/m2 Kayli ey Seybold - External Oxygen saturation in Arterial blood by Pulse oximetry 2024-05-04 17:34:00 98 /min Aracelis Seybo ld - External Systolic blood pressure 2024-03-04 18:23:00 104 mm[Hg] Aracelis Seybo ld - External Diastolic blood pressure 2024-03-04 18:23:00 62 mm[Hg] Aracelis Seybo ld - External Heart rate 2024-03-04 18:23:00 75 /min Kelse y Seybold - External Body temperature 2024-03-04 18:23:00 36.44 Karli Aracelis Seybold - External Respiratory rate 2024-03-04 18:23:00 14 /min Aracelis Seybold - External Body height 2024-03-04 18:23:00 160 cm Kayli ey Seybold - External Body weight 2024-03-04 18:23:00 78.926 kg Kayli ey Seybold - External BMI 2024-03-04 18:23:00 30.82 kg/m2 Kayli ey Seybold - External Systolic blood pressure 2024-02-02 20:58:00 110 mm[Hg] Aracelis Seybo ld - External Diastolic blood pressure 2024-02-02 20:58:00 74 mm[Hg] Aracelis Seybo ld - External Heart rate 2024-02-02 20:58:00 62 /min Kelse y Seybold - External Body temperature 2024-02-02 20:58:00 36.28 Karli Aracelis Seybold - External Respiratory rate 2024-02-02 20:58:00 14 /min Aracelis Seybold - External Body height 2024-02-02 20:58:00 160 cm Kayli ey Seybold - External Body weight 2024-02-02 20:58:00 82.555 kg Kayli ey Seybold - External BMI 2024-02-02 20:58:00 32.24 kg/m2 Kayli ey Seybold - External weight 2023-09-11 15:15:00 178 [lb_av] [facility] bmi 2023-09-11 15:15:00 31.53 kg/m2 [facility] height 2023-09-11 15:15:00 63 [in_i] [facility] blood pressure systolic 2023-09-11 15:15:00 114 mm[Hg] [facility] blood pressure diastolic 2023-09-11 15:15:00 76 mm[Hg] [facility] weight 2023-01-21 14:15:00 182 [lb_av] [facility] bmi 2023-01-21 14:15:00 32.24 kg/m2 [facility] height 2023-01-21 14:15:00 63 [in_i] [facility] blood pressure systolic 2023-01-21 14:15:00 110 mm[Hg] [facility] blood pressure diastolic 2023-01-21 14:15:00 74 mm[Hg] [facility] weight 2022-12-13 09:00:00 190 [lb_av] [facility] bmi 2022-12-13 09:00:00 33.65 kg/m2 [facility] height 2022-12-13 09:00:00 63 [in_i] [facility] blood pressure systolic 2022-12-13 09:00:00 117 mm[Hg] [facility] blood pressure diastolic 2022-12-13 09:00:00 82 mm[Hg] [facility] Systolic blood pressure 2022-10-28 19:54:00 108 mm[Hg] [facility] Diastolic blood pressure 2022-10-28 19:54:00 74 mm[Hg] [facility] Heart rate 2022-10-28 19:54:00 55 [facility] 2022-10-28 19:54:00 160 cm [facility] Body weight 2022-10-28 19:54:00 87.998 kg [facility] BMI 2022-10-28 19:54:00 34.37 kg/m2 [facility] Oxygen saturation in Arterial blood by Pulse oximetry 2022-10-28 19:54:00 96 /min [facility] Systolic blood pressure 2022-10-21 20:45:00 113 mm[Hg] [facility] Diastolic blood pressure 2022-10-21 20:45:00 73 mm[Hg] [facility] Heart rate 2022-10-21 20:45:00 68 /min [facility] Oxygen saturation in Arterial blood by Pulse oximetry 2022-10-21 20:45:00 100 /min [facility] Body weight 2022-10-21 20:39:00 89.767 kg [facility] BMI 2022-10-21 20:39:00 35.06 kg/m2 [facility] Body temperature 2022-10-21 20:31:[address] [facility] Respiratory rate 2022-10-21 20:31:00 17 /min [facility] Body height 2022-10-21 20:31:00 160 cm [facility] Systolic blood pressure 2022-08-26 07:00:00 108 mm[Hg] [facility] Diastolic blood pressure 2022-08-26 07:00:00 72 mm[Hg] [facility] Heart rate 2022-08-26 07:00:00 67 /min [facility] Respiratory rate 2022-08-26 07:00:00 16 /min [facility] Oxygen saturation in Arterial blood by Pulse oximetry 2022-08-26 07:00:00 98 /min [facility] Body temperature 2022-08-26 05:32:[address] [facility] Body height 2022-08-26 05:32:00 160 cm [facility] Body weight 2022-08-26 05:32:00 90.719 kg [facility] BMI 2022-08-26 05:32:00 35.43 kg/m2 [facility] Systolic blood pressure 2022-07-05 05:02:00 115 mm[Hg] [facility] Diastolic blood pressure 2022-07-05 05:02:00 68 mm[Hg] [facility] Heart rate 2022-07-05 05:02:00 77 /min [facility] Body temperature 2022-07-05 05:02:[address] [facility] Respiratory rate 2022-07-05 05:02:00 18 /min [facility] Body height 2022-07-05 05:02:00 160 cm [facility] Body weight 2022-07-05 05:02:00 88.451 kg [facility] BMI 2022-07-05 05:02:00 34.54 kg/m2 [facility] Oxygen saturation in Arterial blood by Pulse oximetry 2022-07-05 05:02:00 98 /min [facility] Procedures Procedure Date / Time Performed Performing Clinician Source INSURANCE CORRESPONDENCE 2022-11-05 06:01:00 Doc tor [place]assigned, [place] [facility] ASSIGNMENT OF BENEFITS 2022-10-21 20:05:08 Docto r Unassigned[place] [facility] REFERRAL- REQUEST/RESPONSE 2022-10-10 06:01:00 Doctor Unassigned, [place] [facility] REFERRAL- REQUEST/RESPONSE 2022-09-30 05:01:00 Doctor Unassigned, [place] [facility] TROPONIN I 2022-08-26 06:54:00 Ana Talley [facility] COMP. METABOLIC PANEL (74050) 2022-08-26 06:54:[address] [facility] CBC WITH DIFF 2022-08-26 06:54:00 Ana Talley [facility] POCT GLUCOSE (AUTOMATED) 2022-08-26 06:29:[address] [facility] POCT TEST 2022-08-26 06:01:[address] [facility] CONSENT/REFUSAL FOR DIAGNOSIS AND TREATMENT 2022-08-26 05:27:18 Doctor Unassigned, [place] [facility] XR HUMERUS 2 VW LEFT 2022-07-05 05:43:[address] [facility] XR SHOULDER 2+ VW LEFT 2022-07-05 05:43:[address] [facility] CT LUMBAR SPINE WO CONTRAST 2022-07-05 05:38:[address] [facility] POCT TEST 2022-07-05 05:25:[address] [facility] [id number] 2020-04-22 00:00:00 ZEILO [facility] [id number] 2020-04-22 00:00:00 [facility] Encounters Start Date/Time End Date/Time Encounter Type Admission Type Attending [facility] Care Facility Care Department Encounter ID Source 2023-09-09 08:07:00 Outpatient PLZOBG PLZOBG [id number] [facility] 2022-12-13 09:04:03 Outpatient PLZOBG PLZOBG [id number] [facility] 2020-10-25 13:00:00 Inpatient EL RobertidSirenay [facility] OUTD [id number] [facility] 2020-05-05 09:24:00 Inpatient EL RobertidSirenay [facility] LD [id number] [facility] 2020-04-21 06:33:00 Inpatient ZeidSirenay [facility] FANNY [id number] 50 [facility] 2020-03-01 00:10:00 Inpatient EL ZeidSirenay [facility] OBOP [id number] 52 [facility] 2020-02-18 13:39:00 Inpatient EL ZeidVeronicauay [facility] OBOP [id number] [facility] 2020-02-02 16:02:00 Inpatient ZeidSirenay [facility] FANNY [id number] [facility] 2024-11-08 11:00:00 2024-11-08 11:00:00 Outpatient JOHN MELARA [id number] [facility] 2024-08-25 13:00:00 2024-08-25 13:00:00 Outpatient KAYLAH GUERRERO [facility] [id number] [facility] 2024-08-13 00:00:00 2024-08-13 00:00:00 Outpatient JOHN MELARA ARACELIS CARRASCO [id number] Aracelis Seybold 2024-07-27 09:45:00 2024-07-27 09:45:00 Outpatient ARACELIS CARRASCO [id number] Aracelis Seybold 2024-07-19 08:45:00 2024-07-19 08:45:00 Outpatient LAB11 ARACELIS CARRASCO [id number] Aracelis Seybold 2024-07-19 08:00:00 2024-07-19 08:00:00 Outpatient JOHN MELARA [facility] [id number] [facility] 2024-07-19 08:00:00 2024-07-19 08:00:00 Outpatient SARITHA JOHN CARRASCO [id number] [facility] 2024-06-30 08:00:00 2024-06-30 08:00:00 Outpatient BILLINGSLUIS HERNANDEZ AR[facility]ELIS [facility] [id number] [facility] 2024-06-09 15:00:00 2024-06-09 15:00:00 Outpatient CESAR KAYLAH CARRASCO [id number] [facility] 2024-05-12 16:30:00 2024-05-12 16:30:00 Outpatient KAYLAH GUERRERO [id number] [facility] 2024-05-04 13:00:00 2024-05-04 13:00:00 Outpatient CESAR KAYLAH CARRASCO [id number] Aracelis Seybold 2024-03-24 07:45:00 2024-03-24 07:45:00 Outpatient TONE GUERRERO [id number] Aracelis Seybold 2024-03-19 13:00:00 2024-03-19 13:00:00 Outpatient CHINEDU BRANDON [id number] Ar[facility] Seybold 2024-03-19 12:30:00 2024-03-19 12:30:00 Outpatient VIELKA RUBIO ARACELIS [id number] [facility] 2024-03-19 11:30:00 2024-03-19 11:30:00 Outpatient DEBORA REDMOND ARACELIS ARACELIS [id number] [facility] 2024-03-14 00:00:00 2024-03-14 00:00:00 Outpatient HUNDL, KAYLAH ARACELIS CARRASCO [id number] [facility] 2024-03-04 13:30:00 2024-03-04 13:30:00 Outpatient HUNDL, KAYLAH ARACELIS ARACELIS [id number] [facility] 2024-02-25 14:00:00 2024-02-25 14:00:00 Outpatient HUNDL, KAYLAH ARACELIS CARRASCO [id number] Ar[facility]is Haas 2024-02-02 15:45:00 2024-02-02 15:45:00 Outpatient LAB90 ARACELIS CARRASCO [id number] Aracelis Haas 2024-02-02 15:00:00 2024-02-02 15:00:00 Outpatient HUNDL, KAYLAH ARACELIS CARRASCO [id number] Aracelistrice Haas 2023-09-11 00:00:00 2023-09-11 00:00:00 Office Visit, Est Pt., Level 3 PLZ[facility] PLZOBG [id number] [facility] 2023-01-21 00:00:00 2023-01-21 00:00:00 (ESTPTGYN) 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 PLZOBG PLZOBG [id number] [facility] 2023-01-17 00:00:00 2023-01-17 00:00:00 (TEL) PLZOBG PLZOBG [id number] [facility] 2022-12-13 00:00:00 2022-12-13 00:00:00 (ESTPTGYN) 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 PLZOBG PLZOBG [id number] [facility] 2022-11-12 16:00:00 2022-11-12 16:00:00 Outpatient TIFFANY NARANJO [facility] [id number] [facility] 2022-11-05 00:00:00 2022-11-05 00:00:00 Orders Only Doctor Unassigned, [place] [facility] [id number] 350.1.13.10 4.2.7.2.686 [id number] [facility] 2022-10-28 13:40:00 2022-10-28 14:40:00 Outpatient R EVANS GUSMAN HOWARD [facility] [id number] [facility] 2022-10-28 13:40:00 2022-10-28 14:40:00 [facility] [id number] 350.1.13.10 4.2.7.2.686 [id number] [facility] 2022-10-21 14:40:00 2022-10-21 14:59:11 Outpatient R SHEILA OLIVOANA [facility] [id number] [facility] 2022-10-21 14:40:00 2022-10-21 14:59:11 [facility] 1.840.114 350.1.13.10 4.2.7.2.686 [id number] [facility] 2022-10-21 00:00:00 2022-10-21 00:00:00 Orders Only Doctor Unassigned, [place] [facility] 1.284.114 350.1.13.10 4.2.7.2.686 [id number] [facility] 2022-10-10 00:00:00 2022-10-10 00:00:00 Orders Only Doctor Unassigned, [place] [facility] 1.2840.114 350.1.13.10 4.2.7.2.686 [id number] [facility] 2022-09-30 00:00:00 2022-09-30 00:00:00 Orders Only Doctor Unassigned, [place] [facility] [id number] 350.1.13.10 4.2.7.2.686 [id number] [facility] 2022-08-26 00:28:00 2022-08-26 03:02:00 Emergency Ana Talley [facility] 1.2.840.114 350.1.13.10 4.2.7.2.686 [id number] [facility] 2022-08-26 00:28:00 2022-08-26 03:02:00 Emergency X ANA TALLEY [facility] ERT [id number] [facility] 2022-07-05 00:08:00 2022-07-05 01:49:00 Emergency X STANISLAV BRENNAN [facility] ERT [id number] [facility] 2022-07-05 00:08:00 2022-07-05 01:49:00 Emergency Stanislav Brennan [facility] 1.2.840.114 350.1.13.10 4.2.7.2.686 [id number] [facility] 2022-07-05 00:08:00 2022-07-05 01:49:00 Emergency X STANISLAV BRENNAN [facility] ERT [id number] [facility] 2022-02-22 01:04:00 2022-02-22 02:42:00 Emergency Delano Wright [facility] 1.2.840.114 350.1.13.10 4.2.7.2.686 [id number] [facility] 2022-02-22 01:04:00 2022-02-22 02:42:00 Emergency X DELANO WRIGHT [facility] ERT [id number] [facility] 2020-03-30 10:00:00 2020-03-30 10:00:00 ZAK Blackmon M.D. ZAK ASIF M.D. [facility] [id number] [facility] 2020-02-29 13:15:00 2020-02-29 13:15:00 Appointmen t; PEDI-CARDS -US, [facility] P[facility]I-CARDS- [facility], [facility] [id number] [facility] Results Test Description Test Time Test Comments Results Result Co mments Source [facility]. METABOLIC PANEL (00063)2022-08-26 07:13:36* Test Item Value Reference Range Interpretation Comme nts NA (test code = 4772480012) 136 mmol/L 135-145 K (test code = 5493971168) 4.5 mmol/L 3.5-5 CL (test code = 4889064176) 99 mmol/L 98-108 CO2 TOTAL (test code = 2561662445) 26 mmol/L 23-31 AGAP (test code = 3061357113) 2-16 BUN (test code = 3322760707) 18 mg/dL 7-23 GLUCOSE (test code = 2049885655) 120 mg/dL 70-110 H CREATININE (test code = 8470255023) 0.83 mg/dL 0.5-1.04 TOTAL BILI (test code = 5250744517) 0.4 mg/dL 0.1-1.1 CALCIUM (test code = 7953180283) 9.7 mg/dL 8.6-10.6 T PROTEIN (test code = 9447674860) 7.6 g/dL 6.3-8.2 ALBUMIN (test code = 4350680868) 4.7 g/dL 3.5-5 ALK PHOS (test code = 1688824964) 85 U/L 34-122 ALTv (test code = 1742-6) 32 U/L 5-35 AST(SGOT) (test code = 2950747250) 25 U/L 13-40 eGFR (test code = 1512850070) mL/min/1.73m2 GISELLE (test code = GISELLE) Association of [...] or abnormalities in imaging tests). Lab Interpretation (test code = 19323-3) Abnormal [facility] WITH [id number] 07:00:37* Test Item Value Reference Range Interpretation Comme nts WBC (test code = 6690-2) See_Comment [Contract Live] The system which generated this result transmitted reference range: 4.30 - 11.10 10*3/?L. The reference range was not used to interpret this result as normal/abnormal. RBC (test code = 789-8) See_Comment [Automated Calera] The system which generated this result transmitted reference range: 3.93 - 5.25 10*6/?L. The reference range was not used to interpret this result as normal/abnormal. HGB (test code = 718-7) 13.7 g/dL 11.6-15 HCT (test code = 4544-3) 39.6 % 35.7-45.2 MCV (test code = 787-2) 91.7 fL 80.6-95.5 MCH (test code = 785-6) 31.7 pg 25.9-32.8 MCHC (test code = 786-4) 34.6 g/dL 31.6-35.1 RDW-SD (test code = 22415-3) 39.3 fL 39-49.9 RDW-CV (test code = 788-0) 11.7 % 12-15.5 L PLT (test code = 777-3) See_Comment [Automated Loglya ge] The system which generated this result transmitted reference range: 166 - 358 10*3/?L. The reference range was not used to interpret this result as normal/abnormal. MPV (test code = 00016-9) 9.2 fL 9.5-12.9 L NRBC/100 WBC (test code = 1242406452) See_Comment [Automated Acomni ssage] The system which generated this result transmitted reference range: 0.0 - 10.0 /100 WBCs. The reference range was not used to interpret this result as normal/abnormal. NRBC x10^3 (test code = 9053408406) See_Comment [Automated Loglya ge] The system which generated this result transmitted reference range: 10*3/?L. The reference range was not used to interpret this result as normal/abnormal. GRAN MAT (NEUT) % (test code = 770-8) 71.7 % IMM GRAN % (test code = 0656537042) 0.50 % LYMPH % (test code = 736-9) 21.5 % MONO % (test code = 5905-5) 4.9 % EOS % (test code = 713-8) 0.8 % BASO % (test code = 706-2) 0.6 % GRAN MAT x10^3(ANC) (test code = 4397123196) 7.55 10*3/uL 1.88-7.09 H IMM GRAN x10^3 (test code = 8077726443) 0.05 10*3/uL 0-0.06 LYMPH x10^3 (test code = 731-0) 2.26 10*3/uL 1.32-3.29 MONO x10^3 (test code = 742-7) 0.51 10*3/uL 0.33-0.92 EOS x10^3 (test code = 711-2) 0.08 10*3/uL 0.03-0.39 BASO x10^3 (test code = 704-7) 0.06 10*3/uL 0.01-0.07 Lab Interpretation (test code = 17131-4) Abnormal [facility] GLUCOSE (AUTOMATED)2022-08-26 06:32:19* Test Item Value Reference Range Interpretation Comme nts POCT GLU (test code = 4298499213) 93 mg/dL 70-110 Lab Interpretation (test cod e = 52689-2) Normal [facility] [id number] 06:01:00* Test Item Value Reference Range Interpretation Comme nts POCT PREG (test code = 1605) negative On board controls acceptable with C Line (test code = 3574) positive POCT PREG LOT # (test code = 3575) [id number] POCT PREG TEST DATE ( test code = 3576) 11/30/2023 Lab Interpretation (test cod e = 50404-9) Normal [facility] [id number] 05:25:00* Test Item Value Reference Range Interpretation Comme nts POCT PREG (test code = 1605) Negative On board controls acceptable with C Line (test code = 3574) Present POCT PREG LOT # (test code = 3575) HCG [id number] POCT PREG TEST DATE ( test code = 3576) 09/30/2023 Lab Interpretation (test cod e = 97220-9) Normal [facility],[id number] 15:07:00* Test Item Value Reference Range Interpretation Comme nts OVARY W/WO TUBE,NON-NEOPLASTIC (test code = OVARNOTNEO) RUN DATE: 10/30/20 [facility] PAGE 1 RUN TIME: 1758 Specimen Inquiry RUN USER: INTERFACE PATIENT: ZEYNEP ZHAO LOC: [facility] U #: [id number] AGE/SX: 20/F ROOM: RE10/25/20REG DR: Bruno Alvarenga MD : 99 BED: DIS: STATUS: [facility] TLOC: SPEC #: [id number] RECD: 10/25/20 STATUS: MANDEEP JANEE #: [id number] GUY: 10/25/20- SUBM DR: Bruno Alvarenga MD ENTERED: 10/25/20-1521 SP TYPE: CLARY MOTA DR: ORDERED: LEVEL IV CODES: [id number] - OVARY, NOS PROCEDURES: LEVEL IV (Incomplete) TISSUES: OVARY, NOS - RIGHT OVARIAN CYST WALL CLINICAL HISTORY 20 year old, pelvic pain, right ovarian cyst (kr) FINAL DIAGNOSIS Right ovarian cyst, resection: - corpus luteum cyst CPT code(s): 35614 cds/wpd GROSS DESCRIPTION ANATOMIC SOURCE OF TISSUE (per Requisition): Right ovarian cyst wall The specimen is received in a formalin-filled container, labeled with the patient's name and designated "right ovarian cyst". The specimen consists of a 2.5 x 2 x 1 cm aggregate of fragmented carolina-pink to red soft tissues. The tissues are entirely submitted in toto in A1 and A2. lance/paul 10/25/20 Signed [place] 10/30/20 1507 END OF REPORT URINALYSIS [id number] 10:05:00* Test Item Value Reference Range Interpretation Comme nts UA COLOR (test code = COLU) YELLOW YELLOW UA APPEARANCE (test code = APPU) CLEAR CLEAR UA GLUCOSE DIPSTICK (test co de = DGLUU) NEGATIVE NEGATIVE UA BILIRUBIN DIPSTICK (test code = BILU) NEGATIVE NEGATIVE UA KETONE DIPSTICK (test cod e = KETU) NEGATIVE NEGATIVE UA SPECIFIC GRAVITY (test co de = SGU) 1.025 1.001-1.035 N UA BLOOD DIPSTICK (test code = JHONY) TRACE NEGATIVE A UA PH DIPSTICK (test code = PUJA) 6.5 5-9 UA PROTEIN DIPSTICK (test co de = PROU) TRACE NEGATIVE A UA UROBILINIOGEN DIPSTICK (t est code = URO) 0.2 EU/dL <=1.0 UA NITRITE DIPSTICK (test co de = RAY) NEGATIVE NEGATIVE UA LEUKOCYTE ESTERASE DIPSTI CK (test code = LEUU) NEG NEGATIVE UA WBC (test code = WBCU) 0-2 #/hpf NONE SEEN UA RBC (test code = RBCU) 2-5 #/hpf NONE SEEN A UA EPITHELIAL CELLS (test co de = EPIU) FEW #/HPF RARE-FEW UA BACTERIA (test code = BACU) FEW #/hpf NONE SEEN A URINE SAMPLE: CLEAN CATCHUR HCG [id number] 10:05:00* Test Item Value Reference Range Interpretation Comme nts UR HCG QUAL (test code = HCGQLU) NEGATIVE 1. Very dilute u rine specimens, as indicated by a lowspecific gravity, may not contain delivery representative levels ofhCG. 2. False negative results may occur when the levels of hCGare below the sensitivity level of the test. If is still suspected, a first morningurine specimen should be collected 48 hours later andtested. URINE SAMPLE: CLEAN CATCHCOVID 19 Asymptomatic IH [id number] 09:58:00* Test Item Value Reference Range Interpretation Comme nts COVID 19 Asymptomatic IH AG (test code = COVNONPUIAG) NEGATIVE NEGATIVE This test has be en authorized only for the detection ofproteins from SARS-CoV-2, not for any other viruses orpathogens. Negative results should be treated as presumptive andconfirmed with a molecular assay, if necessary for patientmanagement. Negative results do not rule out COVID-19 andshould not be used as the sole basis for treatment orpatient management decisions, including infection controldecisions. Negative results should be considered in thecontext of a patient's recent exposures, history and thepresence of clinical signs and symptoms consistent withCOVID-19. This test has not been FDA cleared or approved; the test hasbeen authorized by FDA under an Emergency Use Authorization(EUA) for use by laboratories certified under the CLIA thatmeet the requirements to perform moderate, high or waivedcomplexity tests. This test is authorized for use at thePoint of Care (POC), i.e., in patient care settingsoperating under a CLIA Certificate of Waiver, Certificate ofCompliance, or Certificate of Accreditation. This test is only authorized for the duration of thedeclaration that circumstances exist justifying theauthorization of emergency use of in vitro diagnostic testsfor detection and/or diagnosis of COVID-19 under Apmwifb569(b)(1) of the Act, 21 U.S.C. 360bbb-3(b)(1), unless theauthorization is terminated or revoked sooner. URINALYSIS [id number] 09:56:00* Test Item Value Reference Range Interpretation Comme nts UA COLOR (test code = COLU) YELLOW YELLOW UA APPEARANCE (test code = APPU) CLEAR CLEAR UA GLUCOSE DIPSTICK (test co de = DGLUU) NEGATIVE NEGATIVE UA BILIRUBIN DIPSTICK (test code = BILU) NEGATIVE NEGATIVE UA KETONE DIPSTICK (test cod e = KETU) NEGATIVE NEGATIVE UA SPECIFIC GRAVITY (test co de = SGU) 1.025 1.001-1.035 N UA BLOOD DIPSTICK (test code = JHONY) TRACE NEGATIVE A UA PH DIPSTICK (test code = PUJA) 6.5 5-9 UA PROTEIN DIPSTICK (test co de = PROU) TRACE NEGATIVE A UA UROBILINIOGEN DIPSTICK (t est code = URO) 0.2 EU/dL <=1.0 UA NITRITE DIPSTICK (test co de = RAY) NEGATIVE NEGATIVE UA LEUKOCYTE ESTERASE DIPSTI CK (test code = LEUU) NEG NEGATIVE UA WBC (test code = WBCU) #/hpf NONE SEEN UA EPITHELIAL CELLS (test co de = EPIU) #/HPF RARE-FEW URINE SAMPLE: CLEAN CATCHUR HCG [id number] 09:56:00* Test Item Value Reference Range Interpretation Comme nts UR HCG QUAL (test code = HCGQLU) NEGATIVE 1. Very dilute u rine specimens, as indicated by a lowspecific gravity, may not contain delivery representative levels ofhCG. 2. False negative results may occur when the levels of hCGare below the sensitivity level of the test. If is still suspected, a first morningurine specimen should be collected 48 hours later andtested. URINE SAMPLE: CLEAN CATCHURINALYSIS [id number] 09:40:00* Test Item Value Reference Range Interpretation Comme nts UA COLOR (test code = COLU) YELLOW UA APPEARANCE (test code = APPU) CLEAR UA GLUCOSE DIPSTICK (test code = DGLUU) NEGATIV E UA BILIRUBIN DIPSTICK (test code = BILU) NEGATIVE UA KETONE DIPSTICK (test code = KETU) NEGATIVE UA SPECIFIC GRAVITY (test code = SGU) 1.001-1.0 35 UA BLOOD DIPSTICK (test code = JHONY) NEGATIVE UA PH DIPSTICK (test code = PUJA) 5-9 UA PROTEIN DIPSTICK (test code = PROU) NEGATIVE UA UROBILINIOGEN DIPSTICK (t est code = URO) mg/dL NEG UA NITRITE DIPSTICK (test code = RAY) NEGATIVE UA LEUKOCYTE ESTERASE DIPSTI CK (test code = LEUU) NEG UA WBC (test code = WBCU) #/hpf NONE SEEN UA EPITHELIAL CELLS (test code = EPIU) #/HPF RARE-FEW URINE SAMPLE: CLEAN CATCHUR HCG [id number] 09:40:00* Test Item Value Reference Range Interpretation Comme nts UR HCG QUAL (test code = HCGQLU) NEGATIVE 1. Very dilute u rine specimens, as indicated by a lowspecific gravity, may not contain delivery representative levels ofhCG. 2. False negative results may occur when the levels of hCGare below the sensitivity level of the test. If is still suspected, a first morningurine specimen should be collected 48 hours later andtested. URINE SAMPLE: CLEAN CATCHCBC W/AUTO [id number] 09:39:00* Test Item Value Reference Range Interpretation Comme nts WHITE BLOOD CELL (test code = WBC) [...] pg 27-35 N MEAN CELL HGB CONCETRATION ( test code = MCHC) 33.0 gm/dL 32.2-34.1 N RED CELL DISTRIBUTION WIDTH (test code = RDW) 12.1 % 12.4-16.5 L PLATELET COUNT (test code = PLT) 289 K/mm3 133-385 N MEAN PLATELET VOLUME (test c ode = MPV) 9.4 fl 9.1-12.7 N NEUTROPHIL % (test code = NT%) 59.9 [...] = BA#) 0.0 K/mm3 RBC MORPHOLOGY REQUIRED (jhon t code = RBCM) NORMAL NORMAL PLATELET MORPHOLOGY REQUIRED (test code = PLTMR) NORMAL NORMAL HGB [id number] 04:53:00* Test Item Value Reference Range Interpretation Comme nts HEMOGLOBIN (test code = HGB) 9.5 g/dL 10.7-13.9 L RESULTS VERIFIED BY REPEAT ANALYSIS HEMATOCRIT (test code = HCT) 29.2 % 32.1-42.1 L Coronavirus 2019 nCoV [id number] 09:52:00* Test Item Value Reference Range Interpretation Comme nts Coronavirus 2019 nCoV Bedside (test code = COVNONPUIBED) Negative Negative RESULTS CALLED Aris GORDON PREAD BACK & CONFIRMED? DENI IGLESIAS.MSC 04/21/20 0912 This result does not rule out co-infections with otherpathogens. * False negative results may occur if a specimen isimproperly collected, transported or handled. False negativeresults may also occur if amplification inhibitors arepresent in the specimen or if inadequate levels of virusesare present in the specimen. * As with any molecular test, if the virus mutates in thetarget region, COVID-19 may not be detected or may bedetected less predictably.TEST PERFORMED UNDER AN EMERGENCY USE AUTHORIZATION FROM FDA AG HEPATITIS B [id number] 09:01:00* Test Item Value Reference Range Interpretation Comme [facility] AG HEPATITIS B SURFACE (test code = HBSAG) NONREACTIVE NONREACTIVE IS CONSENT FORM SIGNED FOR HIV TESTING? YAB HEPATITIS C [id number] 09:01:00* Test Item Value Reference Range Interpretation Comme [facility] AB HEPATITIS C (test code = HCVAB) NONREACTIVE NONREACTIVE SIGNAL TO CUTOFF (test code = CUTOFF) 0.09 <0.80 N IS CONSENT FORM SIGNED FOR HIV TESTING? STANLEY [id number] 09:01:00* Test Item Value Reference Range Interpretation Comme nts AB TREPONEMA (test code = TREPAB) NONREACTIVE NONREACTIVE IS CONSENT FORM SIGNED FOR HIV TESTING? STANLEY HIV 1 09:01:00* Test Item Value Reference Range Interpretation Comme nts AB HIV 1 2 (test code = YML81XO) NONREACTIVE NONREACTIVE Done by Siemens Vaccibodyaur 4th Gen HIV Ag/Ab Combo Screen IS CONSENT FORM SIGNED FOR HIV TESTING? YAG HEPATITIS B [id number] 08:37:00* Test Item Value Reference Range Interpretation Comme nts AG HEPATITIS B SURFACE (test code = HBSAG) NONREACTIVE NONREACTIVE IS CONSENT FORM SIGNED FOR HIV TESTING? STANLEY HEPATITIS C [id number] 08:37:00* Test Item Value Reference Range Interpretation Comme nts AB HEPATITIS C (test code = HCVAB) NONREACTIVE SIGNAL TO CUTOFF (test code = CUTOFF) <0.80 IS CONSENT FORM SIGNED FOR HIV TESTING? STANLEY [id number] 08:37:00* Test Item Value Reference Range Interpretation Comme nts AB TREPONEMA (test code = TREPAB) NONREACTIVE NONREACTIVE IS CONSENT FORM SIGNED FOR HIV TESTING? STANLEY HIV 1 08:37:00* Test Item Value Reference Range Interpretation Comme nts AB HIV 1 2 (test code = NAV84HP) NONREACTIVE IS CONSENT FORM SIGNED FOR HIV TESTING? YCOMPREHENSIVE METABOLIC [id number] 07:59:00* Test Item Value Reference Range Interpretation Comme nts SODIUM (test code = NA) 138 mEq/L 135-145 N POTASSIUM (test code = K) 4.0 mEq/L 3.5-5.0 N CHLORIDE (test code = CL) 104 mEq/L 100-115 N CARBON DIOXIDE (test code = CO2) 21 mEq/L 22-31 L ANION GAP (test code = GAP) 16.60 10-20 N GLUCOSE (test code = GLU) 87 mg/dL 65-110 N BLOOD UREA NITROGEN (test co de = BUN) 11 mg/dL 7-18 N GLOMERULAR FILTRATION RATE ( test code = GFR) 91 ml/min >60 N CREATININE (test code = CREAT) 0.8 mg/dL 0.5-1.0 N TOTAL PROTEIN (test code = PROT) 6.4 gm/dL 6.3-8.2 N ALBUMIN (test code = ALB) 2.9 gm/dL 3.4-4.8 L CALCIUM (test code = CA) 9.1 mg/dL 8.4-10.2 N BILIRUBIN TOTAL (test code = BILT) 0.2 mg/dL 0.2-1.0 N SGOT/AST (test code = AST) 20 units/L 15-37 N SGPT/ALT (test code = ALT) 16 units/L 12-78 N ALKALINE PHOSPHATASE TOTAL ( test code = ALKP) 188 units/L 46-116 H CBC W/AUTO [id number] 07:42:00* Test Item Value Reference Range Interpretation Comme nts WHITE BLOOD CELL (test code = WBC) [...] pg 27-35 N MEAN CELL HGB CONCETRATION ( test code = MCHC) 33.7 gm/dL 32.2-34.1 N RED CELL DISTRIBUTION WIDTH (test code = RDW) 12.4 % 12.4-16.5 N PLATELET COUNT (test code = PLT) 268 K/mm3 133-385 N MEAN PLATELET VOLUME (test c ode = MPV) 10.8 fl 9.1-12.7 N NEUTROPHIL % (test code = NT%) 77.0 [...] = BA#) 0.0 K/mm3 RBC MORPHOLOGY REQUIRED (jhon t code = RBCM) NORMAL NORMAL PLATELET MORPHOLOGY REQUIRED (test code = PLTMR) NORMAL NORMAL URINALYSIS [id number] 20:14:00* Test Item Value Reference Range Interpretation Comme nts UA COLOR (test code = COLU) YELLOW YELLOW UA APPEARANCE (test code = APPU) Slightly-Cloudy CLEAR UA GLUCOSE DIPSTICK (test code = DGLUU) 1+ NEG A UA BILIRUBIN DIPSTICK (test code = BILU) NEGATIVE NEG UA KETONE DIPSTICK (test cod e = KETU) NEGATIVE NEG UA SPECIFIC GRAVITY (test code = SGU) 1.026 1.001-1.035 N UA BLOOD DIPSTICK (test code = JHONY) NEG NEG UA PH DIPSTICK (test code = PUJA) 6.0 5-9 UA PROTEIN DIPSTICK (test code = PROU) NEGATIVE NEG UA UROBILINIOGEN DIPSTICK (test code = URO) NEGATIVE mg/dL NEG UA NITRITE DIPSTICK (test code = RAY) NEG NEG UA LEUKOCYTE ESTERASE DIPSTICK (test code = LEUU) NEG NEG UA WBC (test code = WBCU) 0-2 #/hpf NONE SEEN UA RBC (test code = RBCU) 0-2 #/hpf NONE SEEN UA EPITHELIAL CELLS (test code = EPIU) RARE #/HPF RARE-FEW UA BACTERIA (test code = BACU) FEW /HPF RARE-FEW UA MUCUS (test code = MUCU) 3+ NONE SEEN Comments to Docket Clerk: ALCIDES KAMINSKI SAMPLE: CLEAN CATCH Notes Date/Time Note Provider Source 2024-07-19 08:02:29 Chief Complaint Patient presents with Headache Migraine Rip Haas [facility] 2024-05-12 16:23:42 Chief Complaint Patient presents with Headache She has had migraines in the past but they're more often. She has Sumatriptan but no relief. She is complaining of dizziness, nausea and ringing in ears. Also headaches with floaters in eyes. Luly Lao [facility] 2024-03-04 13:27:50 Chief Complaint Patient presents with Follow-up Follow up on weight management Luly Lao MA [facility] 2024-02-02 15:02:11 Chief Complaint Patient presents with Establish Care Constipation Constipation issues for the past year. UTI More frequent UTI'S but not currently Weight Problem Would like to get on Mounjaro for weight management. Luly Lao MA II [facility] 2020-10-25 17:20:00 [id number] [place] [address] PATIENT NAME: ZEYNEP ZHAO ADMIT DATE: 10/25/20 ACCOUNT NO: [id number] ROOM NO: AGE: 20 SEX: F ADMITTING PHYSICIAN: ATTENDING PHYSICIAN: Bruno Alvarenga MD OPERATION DATE: 10/25/2020 PREOPERATIVE DIAGNOSES: Right ovarian cyst and pelvic pain. POSTOPERATIVE DIAGNOSES: Right ovarian cyst and pelvic pain and pelvic endometriosis. PROCEDURES PERFORMED: Operative laparoscopy, right ovarian cystectomy, and coagulation of pelvic endometriosis. SURGEON: Bruno Alvarenga MD CONFORMAL PAD FORMER: ANESTHESIA: General. COMPLICATIONS: None. ESTIMATED BLOOD LOSS: 10 mL. FINDINGS OF THE PROCEDURE: Right ovarian cyst with the content similar to be endometrioma, awaiting pathology and pelvic endometriosis in the posterior cul-de-sac and right pelvic sidewall. Normal-appearing uterus, normal-appearing left ovary, normal-appearing fallopian tubes. No evidence of injury to bowel, viscera, or blood vessels. PROCEDURE IN DETAIL: The patient was taken to the operating room and was prepped and draped in the usual manner in dorsal lithotomy position with legs in Yellofin stirrup. After appropriate prep and draping, a 5 mm incision was made in the lower margin of the umbilicus and a 5 mm trocar with Optiview, and laparoscope was inserted through the 5 mm incision. Intra-abdominal position was confirmed with the scope. Then, the abdomen was insufflated with CO2 gas. Then, a second 5 mm trocar was inserted into the left lower quadrant and a third 5 mm trocar was inserted into the right lower quadrant. At this point, attention directed towards the right ovarian cyst, an incision was made in the ovarian capsule using the bipolar and the scissors and then I tried to dissect the cyst and the cyst was drained and the content was suctioned and with blunt and sharp dissection, I was able to peel the ovarian tissue off the ovarian cyst. The ovarian cyst came out in multiple pieces. It looked like endometrioma. I used the Kel Harmonic to make sure removing all the cyst wall and contents and this cyst was sent to pathology. Then, the base of the cyst on the ovarian side was coagulated using the bipolar for good hemostasis. Hemostasis was judged to be excellent. At this point, attention directed PATIENT NAME: ZEYNEP ZHAO towards the pelvic endometriosis that was coagulated using the bipolar, making sure no injury happened to the bowel or viscera. At this point, the procedure was discontinued. CO2 gas was released from the abdominal cavity and all instrument and sponge count noted to be correct and then the incision was closed using 4-0 Monocryl, followed by Dermabond. All instrument and sponge count noted to be correct at the end of the procedure. The patient tolerated the procedure well and was moved to recovery room in stable condition. Dictated By: Bruno Alvarenga MD WT: OP:BRISA/BAUTISTA/CARLYN Conf#: [id number]/DID#: [id number] Authenticated and Edited by Bruno Alvarenga MD On 10/26/20 2:13:53 PM at 1416 PATIENT NAME: ZEYNEP ZHAO [facility] 2020-10-25 07:55:00 [id number] [facility] [place] [id number] [place], [place] [address] PATIENT NAME: ZEYNEP ZHAO ADMIT DATE: 10/25/20 ACCOUNT NO: [id number] ROOM NO: AGE: 20 SEX: F ADMITTING PHYSICIAN: ATTENDING PHYSICIAN: Bruno Alvarenga MD ADMISSION DATE: 10/25/2020 REASON FOR ADMISSION: Scheduled laparoscopic procedure. HISTORY OF PRESENT ILLNESS: This is a 20-year-old 1, para 1. The patient has long history of endometriosis and she had a right ovarian cyst that had been getting monitored for more than two months. Last ultrasound was done last week and showed that the cyst has gotten bigger and the patient complaining of severe pelvic pain and severe pain during intercourse and she wants something done for the cyst and she is scheduled for laparoscopy and any indicated procedure. PAST OBSTETRICAL HISTORY: History of one spontaneous vaginal delivery. GYNECOLOGIC HISTORY: The patient denies history of sexual transmitted disease or abnormal Pap smear. PAST MEDICAL HISTORY: Endometriosis, PCOS, and ovarian cyst. PAST SURGICAL HISTORY: Hysteroscopy and laparoscopy with cystectomy. MEDICATIONS: None. SOCIAL HISTORY: The patient denies smoking, drinking alcohol, or drug use. ALLERGIES: NO KNOWN DRUG ALLERGIES. REVIEW OF SYSTEMS: Ten systems reviewed and are negative except for mentioned above. PHYSICAL EXAMINATION: GENERAL: The patient is in no acute distress. HEART: Regular rate and rhythm. LUNGS: Clear to auscultation bilaterally. ABDOMEN: Soft, nontender. EXTREMITIES: No edema or tenderness. PELVIC: The patient is very tender on exam, more on the right adnexal side. ASSESSMENT AND PLAN: This is a 20-year-old 1, para 1, with right ovarian cyst and pelvic pain and dyspareunia. She is scheduled for laparoscopic procedure and removal of right ovarian cyst and any indicated procedures. Risks of the procedure explained to the patient including but not limited to infection, bleeding; internal organ damage to the bladder, bowel, ureter, PATIENT NAME: ZEYNEP ZHAO ovaries; requirement of further surgeries and prolonged hospital stay and the patient verbalized understanding and agreed. Dictated By: Bruno Alvarenga MD WT: HP:F.LEONID/BAUTISTA/NTS Conf#: [id number]/DID#: [id number] Authenticated by Bruno Alvarenga MD On 10/25/2020 09:56:19 AM at 0956 PATIENT NAME: ZEYNEP ZHAO [facility] 2020-04-23 11:09:00 [facility] ([facility]) OB Disch REPORT#:[id number] REPORT STATUS: Signed DATE:04/23/20 TIME: 1109 PATIENT: ZEYNEP ZHAO UNIT #: [id number] ROOM/BED: [address] : 99 AGE: 19 SEX: F ATTEND: Bruno Alvarenga MD ADM AUTHOR: Bruno Alvarenga MD * ALL edits or amendments must be made on the electronic/computer document * Subjective Subjective Admission EGA (wks/days): 38 weeks EGA at delivery (wks/days): 38 weeks Status/day: post (day 1) Patient reports: Patient reports: Yes: normal lochia, pain management effective, tolerating po well, voiding well, voiding without pain, tolerating ambulation, flatus. No: complaints, headache, blurred vision. Objective General VS: Vital Signs Date Temp Pulse Resp B/P B/P Mean Pulse Ox FiO2 04/22-04/23 36.7-36.8 76 18 112-134/75-81 Last Documented: Result Date Time B/P 134/81 04/23 0017 Temp 36.8 04/23 0017 Pulse 76 04/23 0017 Resp 18 04/23 0017 B/P Mean 88.0 04/22 0551 Pulse Ox 99 04/21 0911 Patient Weight Weight (lb): 212 Weight (oz): Weight (kg): 96.162 Physical Exam Cardiac: normal rhythm Lungs: clear to auscultation Neuro: Exam: alert, oriented x3 Abdomen: post gravid, soft, no abnormal tenderness, no guarding, no rebound tenderness, normoactive bowel sounds Lochia: normal Discharge Summary Discharge Summary Free Text A P: s/p PPD 1 doping well VSS febrile wants to go home will dc on preeclampsia precautions Hospital course: spontaneous vag delivery Baby A: Vaginal delivery: spontaneous status: live born Gender: male 1 minute: 7 5 minutes: 8 Discharge meds: Continue taking these medications: PNV/FE FUM/FA ( MULTIVITAMIN) 28 MG IRON-800 MCG TAB 1 TABLET ORAL DAILY. Start taking the following new medications: IBUPROFEN (MOTRIN) 800 MG TAB 800 MILLIGRAM ORAL THREE TIMES A DAY. as needed for PAIN Qty = 14 No Refills ACETAMINOPHEN/CODEINE (TYLENOL WITH CODEINE #3 300/30 MG) 300 MG-30 MG TAB 1 TABLET ORAL EVERY 4 HOURS NEEDED. as needed for PAIN Qty = 14 No Refills at 1110 RPT #:[id number] END OF REPORT [facility] 2020-04-22 03:20:00 [facility] ([facility]) OB Delivery Note REPORT#:[id number] REPORT STATUS: Signed DATE:04/22/20 TIME: 319 PATIENT: ZEYNEP ZHAO UNIT #: [id number] ROOM/BED: [address] : 99 AGE: 19 SEX: F ATTEND: Bruno Alvarenga MD ADM AUTHOR: Bruno Alvarenga MD * ALL edits or amendments must be made on the electronic/computer document * OB Delivery Nursing Documentation Review Nursing data: The data set between the solid lines has been imported from nursing documentation. Any exceptions have been noted below under Provider comments. _ ROM date: 04/21/20 ROM time: 529 Membranes rupture method: SROM Amniotic fluid color: Clear Amniotic fluid amount: EGA (weeks/days): 38.0 EGA at admit (weeks): EGA at delivery (weeks): 37 Steroids prior to arrival: Antibiotic prophylaxis given: evaluation at delivery: Delivery date infant A: Delivery time A: Birthweight (gm) infant A: Weight (lb) A: Weight (oz) infant A: Gender A: Male 1 minute infant A: 5 minutes infant A: 10 minutes A: Cord pH obtained A: Vacuum time infant A: Vacuum # pulls infant A: Vacuum # popoffs A: QBL at delivery: __ Provider comments on imported nursing data: [] Pre-delivery GBS status: GBS status: positive Prophylaxis administered: penicillin [place] evaluation at delivery: team Admission EGA (wks/days): 38 weeks EGA at delivery (wks/days): 38 weeks Baby A Information Baby A information Delivery date: 04/22/20 Delivery time: 0303 status: live born Wt of baby: not yet available Gender: male 1 minute: 7 5 minutes: 8 Presentation: vertex Nuchal cord Baby A Nuchal cord: yes (loose and reduced) Vaginal Delivery Vaginal delivery: Labor: augmented Medications/Devices used: oxytocin Vaginal delivery: spontaneous Amniotic fluid: meconium Anesthesia type: epidural anesthesia Episiotomy: right mediolateral Episiotomy repair: yes Episiotomy/laceration suture: 2-0 Placenta: spontaneous Post delivery meds used: oxytocin Count: correct Mother's condition: mother stable Lacerations: High vaginal laceration: no Extraction details OVD performed: no Shoulder dystocia present: no Blood Loss/Details Blood loss at delivery: [address] [facility] #:[id number] END OF REPORT [facility] 2020-04-21 09:08:00 [id number] [facility] [place] [facility] [address] [place], [place] [address] PATIENT NAME: ZEYNEP ZHAO ADMIT DATE: 04/21/20 ACCOUNT NO: [id number] ROOM NO: [facility] AGE: 19 SEX: F ADMITTING PHYSICIAN: Bruno Alvarenga MD ATTENDING PHYSICIAN: Bruno Alvarenga MD ADMISSION DATE: 04/21/2020 REASON FOR ADMISSION: Spontaneous rupture of membrane at 38 weeks. HISTORY OF PRESENT ILLNESS: This is a 19-year-old 1, para 0 at 38 weeks The patient presented to the triage at [facility] complaining of leakage of fluid. She was found to be grossly ruptured and namita every 4 to 5 minutes. A decision was made to admit the patient with spontaneous rupture of membrane and early labor, possible augmentation with Pitocin. Her care was complicated with a possible club feet with the baby and the patient had MFM and genetic consultation. All other workup was negative and the patient has appointment with orthopedics for the baby to follow up after delivery. PAST OBSTETRICAL HISTORY: The patient is primigravida. GYNECOLOGIC HISTORY: The patient denies history of sexual transmitted disease or abnormal Pap smear. PAST MEDICAL HISTORY: Endometriosis, PCOS, hiatal hernia. PAST SURGICAL HISTORY: Hysteroscopy. ALLERGIES: NO KNOWN DRUG ALLERGIES. SOCIAL HISTORY: The patient denies smoking, drinking alcohol, or drug use. MEDICATIONS: vitamins, Pepcid. REVIEW OF SYSTEMS: Ten systems reviewed and are negative except for mentioned above. PHYSICAL EXAMINATION: GENERAL: The patient is alert, in no acute distress. HEART: Regular rate and rhythm. LUNGS: Clear to auscultation bilaterally. ABDOMEN: Soft, nontender, gravid uterus. EXTREMITIES: No edema, no tenderness. PELVIC: Cervical exam on admission 1 cm dilated, 50% effaced, and -3 station and grossly ruptured. ASSESSMENT AND PLAN: This is a 19-year-old 1, para 0 at 38 weeks with spontaneous rupture of membrane in early labor. We will admit to labor and PATIENT NAME: ZEYNEP ZHAO delivery for possible augmentation with Pitocin. GBS status is positive. We will start penicillin for intrapartum prophylaxis. The patient can have epidural for pain control. We will continue to follow. Dictated By: Bruno Alvarenga MD WT: HP:F.LEONID/BAUTISTA/CARLYN Conf#: [id number]/DID#: [id number] Authenticated by Bruno Alvarenga MD On 04/23/2020 11:06:45 AM at 1241 PATIENT NAME: ZEYNEP ZHAO [facility] 2020-02-17 05:46:00 [id number] [facility] [place] [id number] PATIENT NAME: ZEYNEP ZHAO ADMIT DATE: 02/02/20 ACCOUNT NO: [id number] ROOM NO: AGE: 19 SEX: F ADMITTING PHYSICIAN: ATTENDING PHYSICIAN: Bruno Alvarenga MD ADMISSION DATE: 02/02/2020 This is triage evaluation dictated on the patient, Zeynep Zhao, for evaluation on 02/02/2020 by Shannon Castañeda MD, triage hospitalist in OB ED per request of Dr. Alvarenga. Please note, this is a repeat dictation, several of the dictations from 01/31/2020 and 02/02/2020 have not been found and I have been repeating those dictations. HISTORY OF PRESENT ILLNESS: The patient is a 19-year-old G1, P0 with last menstrual period unsure in July of 2019 and estimated date of confinement 05/05/2020. She presented at 26 and 5/7th weeks, complaining of increased vaginal discharge and right flank pain as well as right lower extremity numbness. She had seen Dr. Alvarenga with the same concerns on 01/31/2020. Workup was negative including nitrazine negative per the patient. She denied vaginal bleeding and reported good movement. She denied come and go contractions. She denied history of renal stones or pyelonephritis or recent urinary tract infections. She denied headache, vision changes or other preeclampsia symptoms. She denied fever, chills, nausea, vomiting, diarrhea or dysuria. She does report some chronic constipation during the . She also reports severe heartburn; therefore, she did not eat last evening and reports dizziness earlier in the day. Her care started with Dr. Willams at approximately 8 weeks' gestation. She had two visits there, then transferred to care to Dr. Alvarenga at approximately 12 weeks' gestation. Her next visit is scheduled for 02/18/2020. She denies prior complications in the and reports all ultrasounds and labs normal to her knowledge. No records are available at the time of evaluation. PAST MEDICAL HISTORY: Negative. PAST SURGICAL HISTORY: Diagnostic laparoscopy with ablation of endometriosis in 2019. ALLERGIES: NO KNOWN DRUG ALLERGIES. MEDICATIONS: vitamins and as needed Tums for heartburn. OBSTETRICAL HISTORY: The patient is primiparous. GYNECOLOGIC HISTORY: Menarche at age 9 with cycles every 1 to 2 months, lasting 7 to 10 days. She reports heavy bleeding with minimal cramping for her. She denies prior history of STDs. She is not sure if she has had Pap smear before, although with her at her age, this would not have been recommended. PATIENT NAME: ZEYNEP ZHAO SOCIAL HISTORY: The patient denies tobacco or illicit drug use. She reports rare prepregnancy alcohol use. She lives with her boyfriend, a 21-year-old healthy male and her mother, sister and maternal grandfather. The patient does not work outside the home. FAMILY HISTORY: Mother and maternal grandmother without health problems. Maternal grandfather with hypertension. No information on father or paternal grandparents. The patient has one sister reported as healthy and 7 half siblings with unknown health status. She denies history of mental retardation or defects in her family or her partner's family. REVIEW OF SYSTEMS: A 10-point review of systems is negative except as stated above. PHYSICAL EXAMINATION: GENERAL: This is a well-nourished, well-developed female, in no acute distress, lying on triage stretcher in OB ED. VITAL SIGNS: Height 5 feet 3 inches, weight prior to the 172 pounds and at most recent visit to clinic 191 pounds. Blood pressure 114/63, pulse 68, respirations 18 and temperature 98.3. HEAD AND NECK: Within normal limits without lymphadenopathy or thyromegaly. CHEST: Clear to auscultation bilaterally. HEART: With regular rate and rhythm. BREASTS: Deferred. ABDOMEN: Soft, nontender and gravid with a fundal height of 25 cm. BACK: No CVA tenderness but the patient was noted to have tenderness along the paraspinous area, left greater than right, to moderate palpation. EXTREMITIES: No edema. Bilateral patellar reflexes 2+ and the right lower extremity showed no deficits on motor or sensory exam. NEUROLOGICAL: Nonfocal. The patient is awake, alert and oriented x3. PELVIC: Sterile speculum exam, no pooling was noted. She did have normal-appearing leukorrhea. GC and chlamydia and wet prep specimens were collected and sent to the lab. No sterile vaginal exam was performed as the patient denied contractions. Cervix appeared closed and no contractions were seen on monitoring. RADIOLOGICAL DATA: NST is category 1 for gestational age with baseline heart tones in the 120 with multiple 15 x 15 accelerations, no decelerations and no contractions. LABORATORY DATA: Urinalysis showed 1+ glucose, otherwise negative for the remainder of the parameters with 0 to 2 rbc's, 0 to 2 wbc's, rare epithelial cells and few bacteria. GC and chlamydia both negative. Wet prep negative. ASSESSMENT/PLAN: This is a 19-year-old G1, P0 at 26 and 5/7th weeks, who presented complaining of increased vaginal discharge, right flank pain and right lower extremity numbness. On evaluation, no evidence of premature rupture of membranes, the [...] Maalox as needed 30 minutes prior to meals and 30 minutes before bedtime. Other gastroesophageal reflux disease precautions were given including no eating in bed, no supine for at least an hour after eating and elevate the head of the bed. She was given labor precautions and is to call or return for vaginal bleeding, leakage of fluid, decreased movement, worsening pain or other concerns. All instructions given verbally by . Dictated By: Shannon Castañeda MD WT: HP:BRISA/TIM/CARLYN Conf#: [id number]/DID#: [id number] Authenticated and Edited by Shannon Castañeda MD On 02/18/20 10:01:58 AM at 1003 PATIENT NAME: ZEYNEP ZHAO [facility]
[2024-10-07] MEDS ORDERED: MORPHINE 2 MG/ML SYR ONE (10:26)
[2024-10-07] MEDS ORDERED: FAMOTIDINE 20 MG/2 ML VIAL IV ONE (10:26)
[2024-10-07] MEDS ORDERED: ONDANSETRON 4 MG/2 ML VIAL ONE (10:26)
[2024-10-07] MEDS ORDERED: NA CHLORIDE 0.9% 1,000 ML ONE (10:27)
--- NOTE | 2024-10-07 10:38 | RAD REPORT ---
EXAM: Right upper quadrant ultrasound. CLINICAL HISTORY: Abd pain;Nausea / vomiting COMPARISON: None. FINDINGS: Gallbladder: Normal. Bile ducts: No intrahepatic or extrahepatic biliary dilatation. Common bile duct measures 2 mm. Limited imaging of the liver shows no concerning finding. IMPRESSION: Unremarkable exam.
[2024-10-07 11:20] LABS: Absolute Eosinophils 0.2 K/uL (0-0.5); Absolute Lymphocytes (CBC) 1.1 K/uL (0.7-4.9); Absolute Monocytes 0.3 K/uL (0.1-1.3); Absolute Neutrophil 6.5 K/uL (1.8-8.0); Basophils % 0.1 % (0-1.3); Eosinophils % 2.7 % (0-4.4); Hematocrit 40.9 % (36.0-45.0); Hemoglobin 13.8 g/dL (12.0-15.0); Lymphocytes % 13.7 % (15.3-44.8); MCH 32.2 pg (27.0-35.0); MCHC 33.8 g/dL (32.0-36.0); MCV 95.5 fL (80-100); MPV 7.7 fL (7.6-11.3); Monocytes % 3.8 % (3.3-12.3); Neutrophils % 79.7 % (41.7-73.7); Platelets 288 thou/uL (152-406); RBC Red Blood Cell Count 4.28 M/uL (3.86-4.86); Red Cell Distribution Width 12.5 % (12.1-15.2)
[2024-10-07 11:23] LABS: Sqamous Epithelial <5 /HPF (None Seen); Urine Bacteria <20 /HPF (<20); Urine Bilirubin NEGATIVE (Negative); Urine Blood 1+ (Negative); Urine Clarity Extremely Turbid (Clear); Urine Color Yellow (Yellow); Urine Culture Reflex Order NOT NEEDED; Urine Glucose NEGATIVE (Negative); Urine Ketones 1+ (Negative); Urine Microscopic Reflex YN ORDER UMIC; Urine Mucus 3+ /HPF (None Seen); Urine Nitrite NEGATIVE (Negative); Urine Protein TRACE (Negative); Urine RBC <5 /HPF (None Seen); Urine Urobilinogen Normal (Normal); Urine WBC <5 /HPF (<5); Urine pH 5.5 (5.0-7.0)
[2024-10-07 11:38] LABS: Albumin 4.1 g/dL (3.4-5.0); Albumin/Globulin Ratio 1.1 (1.1-1.8); Anion Gap 6.9 mEq/L (5.0-15.0); Bilirubin Total 0.6 mg/dL (0.2-1.0); Globulin 3.6 g/dL (2.3-3.5); Potassium 3.9 mEq/L (3.5-5.1); Protein, Total 7.7 g/dL (6.4-8.2)
--- NOTE | 2024-10-07 11:42 | RAD REPORT ---
EXAMINATION: CT ABDOMEN AND PELVIS WITH CONTRAST CLINICAL INDICATION: ABD PAIN TECHNIQUE: CT abdomen and pelvis was performed, after the administration of IV contrast, as per [facility] protocol. Axial, sagittal and coronal reconstructions were obtained. One or more of the following dose reduction techniques were used: Automated exposure control, adjustment of the mA and k V according to patient size, and iterative reconstruction. Unless otherwise specified, incidental findings do not require dedicated imaging follow-up. COMPARISON: No prior exam. FINDINGS: LOWER CHEST: The visualized lung bases are clear. LIVER: Normal in size and contour. No focal lesion. Grossly unremarkable gallbladder. SPLEEN: Normal size. No focal lesion. PANCREAS: No mass, ductal dilation, or melvin-pancreatic fluid. ADRENALS: Normal; no mass. KIDNEYS: Normal size and contour. No hydronephrosis. GASTROINTESTINAL TRACT: No evidence of free air, significant intra-abdominal free fluid, bowel obstru ction or abscess. APPENDIX: Normal appendix. LYMPH NODES: No lymphadenopathy. MUSCULOSKELETAL: No acute or suspicious osseous abnormality. ADDITIONAL FINDINGS: Trace pelvic free fluid, within physiologic limits. IMPRESSION: No acute or concerning abnormalities seen in the abdomen or pelvis.
--- NOTE | 2024-10-07 12:33 | EDPHYS ---
Physician Documentation [facility] Name: Aleena Zhao Age: 24 yrs Sex: Female : 2000 Arrival Date: 10/07/2024 Time: 09:44 Bed 19 Private MD: ED Physician Casa Boyce HPI: 10/07 12:03 This 24 yrs old Female presents to ER via Ambulatory with complaints of rn Abdominal Pain. 12:03 The patient presents with abdominal pain in the left lower quadrant. Onset: The rn symptoms/episode began/occurred 2 day(s) ago. The symptoms do not radiate. Associated signs and symptoms: Pertinent positives: diarrhea, nausea, Pertinent negatives: fever, hematuria, vaginal discharge. The symptoms are described as crampy, intermittent, sharp. Modifying factors: The symptoms are alleviated by nothing, the symptoms are aggravated by touching the area. Severity of pain: At its worst the pain was mild in the emergency department the pain is unchanged. The patient has experienced similar episodes in the past. The patient has not recently seen a physician. Patient reports 2 days of left lower quadrant abdominal pain. Reports crampy, feels gassy, associated with nausea and diarrhea. Has had multiple abdominal problems with pain and constipation in the past, feels similar but her mother wanted her to make sure was not appendicitis today. No fever or chills. No urinary symptoms. Denies . No blood in stool. No known inflammatory bowel disease.. Historical: - Allergies: 12:55 No Known Allergies; db - PMHx: 09:58 Asthma; Endometrosis; PCOS; ll1 - Immunization history:: Adult Immunizations up to date. - Infectious Disease History:: Denies. - Social history:: Smoking status: Patient denies any tobacco usage or history of. - Family history:: not pertinent. - Hospitalizations: : No recent hospitalization is reported. ROS: 12:03 Constitutional: Negative for fever, chills, and weight loss, Cardiovascular: Negative rn for chest pain, palpitations, and edema, Respiratory: Negative for shortness of breath, cough, wheezing, and pleuritic chest pain, Abdomen/GI: Positive for abdominal pain with nausea and diarrhea Back: Negative for injury and pain, : Negative for injury, bleeding, discharge, and swelling, MS/Extremity: Negative for injury and deformity, Skin: Negative for injury, rash, and discoloration, Neuro: Negative for headache, weakness, numbness, tingling, and seizure, Exam: 12:03 Constitutional: This is a well developed, well nourished patient who is awake, alert, rn and in no acute distress. Cardiovascular: Regular rate and rhythm. No pulse deficits. Respiratory: No increased work of breathing, no retractions or nasal flaring. Abdomen/GI: Soft, mild left lower quadrant tenderness without rebound or guarding. No right lower quadrant tenderness. Mild epigastric tenderness. Negative Ashraf Vital Signs: 10:04 Weight 72.12 kg; Height 5 ft. 3 in. ; Pain 6/10; ll1 10:16 BP 96 / 61; Pulse 69; Resp 16; Pulse Ox 98% on R/A; db 10:45 BP 111 / 67; Pulse 71; Resp 14; Pulse Ox 82% ; db 11:00 BP 96 / 63; Pulse 73; Resp 16; Pulse Ox 100% on R/A; db 12:00 BP 94 / 60; Pulse 64; Resp 18; Pulse Ox 100% on R/A; db 10:04 Body Mass Index 28.17 (72.12 kg, 160.02 cm) ll1 10:04 Pain Scale: Adult ll1 MDM: 09:59 Medical Screening Exam initiated rn 12:31 Differential diagnosis: appendicitis, bowel obstruction, cholecystitis, Cholelithiasis, rn Endometriosis, gastritis, non-specific abd pain, pancreatitis, Peptic Ulcer Disease, Pyelonephritis, Ureterolithiasis, urinary tract infection. Data reviewed: vital signs, nurses notes, lab test result(s), radiologic studies, CT scan, ultrasound, and as a result, I will discharge patient. Counseling: I had a detailed discussion with the patient and/or guardian regarding the historical points, exam findings, and any diagnostic results supporting the discharge/admit diagnosis, lab results, radiology results, the need for outpatient follow up, to return to the emergency department if symptoms worsen or persist or if there are any questions or concerns that arise at home. Special discussion: Based on the patient's Hx, exam, and Dx evaluation, there is no indication for emergent surgery or inpatient Tx. It is understood by the patient/guardian that if the Sx's persist or worsen they need to return immediately for re-evaluation. I discussed with the patient/guardian in detail that at this point there is no indication for admission to the hospital. It is understood, however, that if the symptoms persist or worsen the patient needs to return immediately for re-evaluation. Based on the history and exam findings, there is no indication for further emergent testing or inpatient evaluation. I discussed with the patient/guardian the need to see the primary care provider for further evaluation of the symptoms. ED course: I have personally reviewed all of the results, including but not limited to blood tests and imaging deemed necessary to safely discharge this patient at this time. All results given to and printed out for patient. I personally went over all the results with the patient and answered all questions. Patient will follow-up with PCP and or specialist as discussed. Return precautions given and understood. Recommend GI follow-up and MARGARINE CHURN OPERATOR follow-up given recurrent abdominal problems, history of endometriosis and lack of acute findings in today's workup.. 10/07 10:09 Order name: CBC with Diff; Complete Time: : 10/07 10:09 Order name: CMP; Complete Time: rn 10/07 10:09 Order name: Lipase; Complete Time: rn 10/07 10:09 Order name: Test, Urine; Complete Time: : rn 10/07 10:09 Order name: Urinalysis w/ reflexes; Complete Time: rn 10/07 10:09 Order name: CT Abd/Pelvis - IV Contrast Only; Complete Time: : rn 10/07 10:09 Order name: US Abdomen Limited; Complete Time: 11: rn 10/07 10:09 Order name: IV Saline Lock; Complete Time: : rn 10/07 10:09 Order name: Labs collected and sent; Complete Time: 11: rn Administered Medications: 11:05 Drug: Famotidine IVP 20 mg IVP once; dilute with 10 mL 0.9% NaCl; give over 2 minutes db Route: IVP; Site: right antecubital; 12:55 Follow up: Response: No adverse reaction db 11:05 Drug: Ondansetron IVP 4 mg IVP once; over 2 minutes Route: IVP; Site: right antecubital;db 12:56 Follow up: Response: No adverse reaction db 11:05 Drug: NS 0.9% IV 1000 ml IV at 1 bolus Per protocol; to be given as a bolus over 60 db minutes Route: IV; Rate: 1 bolus; Site: right antecubital; 12:00 Follow up: Response: No adverse reaction; IV Status: Completed infusion; IV Intake: db 1000ml 11:15 Not Given (Patient Refused): morphineor iv 2 mg IVP once over 4 mins db Disposition Summary: 10/07/24 12:32 Discharge Ordered Notes: Location: Home rn Problem: new rn Symptoms: have improved rn Condition: Stable rn Diagnosis - Abdominal pain, unspecified rn Followup: rn - With: Private Physician - When: As needed - Reason: Recheck today's complaints, Re-evaluation by your physician Discharge Instructions: - Discharge Summary Sheet rn - Abdominal Pain, Adult rn - Pain Without a Known Cause rn Forms: - Medication Reconciliation Form rn - Antibiotic finance accounting internship - Prescription Opioid Use rn - Patient Portal Instructions rn - Leadership Thank You Letter rn Prescriptions: - ondansetron 4 mg Oral Tablet,disintegrating - take 1 tablet ORAL route every 8 hours As needed; 10 tablet; Refills: 0, rn Product Selection Permitted Signatures: Dispatcher [employer] EDMS Casa Boyce MD MD rn Lewis, Lynsay RN RN ll1 Ashlie Salcido RN RN db Corrections: (The following items were deleted from the chart) 10: 10:09 Abdomen Pelvis W Con+CT.RAD.BRZ ordered. EDMS EDMS 10:09 10:09 Abdomen Limited+US.RAD.BRZ ordered. EDMS EDMS
--- NOTE | 2024-10-07 12:33 | ER ---
Nurse's Notes [facility] Name: Aleena Zhao Age: 24 yrs Sex: Female : 2000 Arrival Date: 10/07/2024 Time: 09:44 Bed 19 Private MD: Diagnosis: Abdominal pain, unspecified Presentation: 10/07 10:04 Chief complaint: Patient states: Abdominal pain for 2 days with N/V/D and feels gassy. ll1 Coronavirus screen: Client denies travel out of the [place] in the last 14 days. diarrhea, fatigue, nausea, vomiting. Client presents with at least one sign or symptom that may indicate coronavirus-19. Standard/surgical mask placed on the client. Ebola Screen: Patient denies travel to an Ebola-affected area in the 21 days before illness onset. Initial Sepsis Screen: Does the patient meet any 2 criteria? No. Patient's initial sepsis screen is negative. Does the patient have a suspected source of infection? No. Patient's initial sepsis screen is negative. Risk Assessment: Do you want to hurt yourself or someone else? Patient reports no desire to harm self or others. Onset of symptoms was October 06, 2024. 10:04 Method Of Arrival: Ambulatory ll1 10:04 Acuity: AME 3 ll1 Triage Assessment: 10:05 General: Appears uncomfortable, Behavior is calm, cooperative, appropriate for age. ll1 Pain: Complains of pain in abdomen Pain currently is 6 out of 10 on a pain scale. Quality of pain is described as aching, crampy. GI: Reports lower abdominal pain, upper abdominal pain, cramping, diarrhea, gaseousness, nausea, vomiting. Historical: - Allergies: 12:55 No Known Allergies; db - PMHx: 09:58 Asthma; Endometrosis; PCOS; ll1 - Immunization history:: Adult Immunizations up to date. - Infectious Disease History:: Denies. - Social history:: Smoking status: Patient denies any tobacco usage or history of. - Family history:: not pertinent. - Hospitalizations: : No recent hospitalization is reported. Screenin:53 [facility] ED Fall Risk Assessment (Adult) History of falling in the last 3 months, db including since admission No falls in past 3 months (0 pts) Confusion or Disorientation No (0 pts) Intoxicated or Sedated No (0 pts) Impaired Gait No (0 pts) Mobility Assist Device Used No (0 pt) Altered Elimination No (0 pt) Score/Fall Risk Level 0 - 2 = Low Risk Oriented to surroundings, Maintained a safe environment. Abuse screen: Denies threats or abuse. Denies injuries from another. Nutritional screening: No deficits noted. Tuberculosis screening: No symptoms or risk factors identified. Assessment: 10:19 Reassessment: GAME TESTER IS AT PATIENT BEDSIDE. db 10:20 Reassessment: Patient appears in no apparent distress at this time. Patient and/or db family updated on plan of care and expected duration. Pain level reassessed. Patient is alert, oriented x 3, equal unlabored respirations, skin warm/dry/pink. 12:55 Reassessment: Patient appears in no apparent distress at this time. Patient and/or db family updated on plan of care and expected duration. Pain level reassessed. Patient is alert, oriented x 3, equal unlabored respirations, skin warm/dry/pink. Patient states feeling better. Patient states symptoms have improved. Vital Signs: 10:04 Weight 72.12 kg; Height 5 ft. 3 in. ; Pain 6/10; ll1 10:16 BP 96 / 61; Pulse 69; Resp 16; Pulse Ox 98% on R/A; db 10:45 BP 111 / 67; Pulse 71; Resp 14; Pulse Ox 82% ; db 11:00 BP 96 / 63; Pulse 73; Resp 16; Pulse Ox 100% on R/A; db 12:00 BP 94 / 60; Pulse 64; Resp 18; Pulse Ox 100% on R/A; db 10:04 Body Mass Index 28.17 (72.12 kg, 160.02 cm) ll1 10:04 Pain Scale: Adult ll1 ED Course: 09:48 Patient arrived in ED. mr 09:58 Arm band placed on Patient placed in an exam room, on a stretcher. ll1 09:59 Casa Boyce MD is Attending Physician. rn 10:05 Triage completed. ll1 10:19 Ashlie Salcido, MIKIE is Primary Nurse. db 10:31 US Abdomen Limited In Process Unspecified. EDMS 11:00 Initial lab(s) drawn, by me, sent to lab. Inserted saline lock: 22 gauge in right db antecubital area, using aseptic technique. Blood collected. Flushed with 10 mL NS. 11:32 CT Abd/Pelvis - IV Contrast Only In Process Unspecified. EDMS 12:53 Patient has correct armband on for positive identification. Bed in low position. Call db light in reach. Side rails up X 1. Provided Education on: DISCHARGE AND FOLLOWUP. Pulse ox on. Warm blanket given. Pillow given. 12:53 No provider procedures requiring assistance completed. IV discontinued, intact, db bleeding controlled, No redness/swelling at site. Administered Medications: 11:05 Drug: Famotidine IVP 20 mg IVP once; dilute with 10 mL 0.9% NaCl; give over 2 minutes db Route: IVP; Site: right antecubital; 12:55 Follow up: Response: No adverse reaction db 11:05 Drug: Ondansetron IVP 4 mg IVP once; over 2 minutes Route: IVP; Site: right antecubital;db 12:56 Follow up: Response: No adverse reaction db 11:05 Drug: NS 0.9% IV 1000 ml IV at 1 bolus Per protocol; to be given as a bolus over 60 db minutes Route: IV; Rate: 1 bolus; Site: right antecubital; 12:00 Follow up: Response: No adverse reaction; IV Status: Completed infusion; IV Intake: db 1000ml 11:15 Not Given (Patient Refused): morphineor iv 2 mg IVP once over 4 mins db Medication: 12:53 VIS not applicable for this client. db Intake: 12:00 IV: 1000ml; Total: 1000ml. db Outcome: 12:32 Discharge ordered by . rn 12:53 Discharged to home ambulatory, with family, db 12:53 Condition: stable 12:53 Discharge instructions given to patient, Instructed on discharge instructions, follow up and referral plans. Prescriptions given X 1, 12:56 Patient left the ED. db Signatures: Dispatcher [employer] EDMS Luna Rausch, Reg Reg mr Casa Boyce MD MD rn Lewis, Lynsay, RN RN ll1 Ashlie Salcido RN RN db Corrections: (The following items were deleted from the chart) 11:15 11:05 morphine IVP or IV 2 mg IVP in right antecubital over 4 mins db db 12:55 12:55 Reassessment: Patient appears in no apparent distress at this time. Patient db and/or family updated on plan of care and expected duration. Pain level reassessed. Patient is alert/active/playful, equal unlabored respirations, skin warm/dry/pink. db
[2024-10-07 13:03] VITALS: O2SAT 100
[2024-10-07 13:04] VITALS: BP 94/60
== END 2024-10-07 12:56 | disposition home or self-care (01) ==
LOC: ER 09:44
DX: R10.32 Left lower quadrant pain (principal)
CPT/HCPCS: 96361; 85025; 81001; 36415; 81025; 83690; 80053; 74177; 76705; 96375; 96374; 99284; Q9967; J2405; J7030; J2270

== ENCOUNTER 2024-11-29 03:03 | Emergency (ER) | payer OTHER ==
--- OUTSIDE RECORDS SUMMARY | 2024-11-29 03:08 | XMS REPORT | Continuity of Care Document ---
Author Name Unknown Address [address] [facility] [address] [place] [address] [facility] Address [address] [facility] [address] [place] [address] Care Team Providers Care Printing Services Coordinator Name Role Phone MILATUYETPAM C Primary Care [...] TIFFANY OLIVO Attending Clinician Unavailable Doctor Unassigned, Kim Attending Clinician U navailable EVANS GUSMAN Attending Clinician Unavail able EVANS GUSMAN Attending Clinician Unavail Evans Hua MD Attending Clinician Tiffany Olivo MD Attending Clinician Ana Talley MD Attending Clinician [phone] ANA TALLEY Attending Clinician Unavailable STANISLAV BRENNAN Attending Clinician Unavailable Stanislav Chopra Attending Clinician [phone] Delano Wright DO Attending Clinician [phone] DELANO WRIGHT Attending Clinician Unavailable ZAK ASIF M.D. Attending Clinician Unav ailable [id number], OSIRIS Attending Clinician Cindy vailable Bruno Alvarenga Admitting Clinician Unavailable STANISLAV BRENNAN Admitting Clinician Unavailable DELANO WRIGHT Admitting Clinician Unavailable Payers Payer Name Policy Type Policy Number Effective Date Expirati on Date Source LO 2 [id number] 2024 00:00:[address] [facility] [id number] 2021 00:00:00 Problems Condition Name Condition Details [...] Vertigo Vertigo Disease Active 05-12 00:00: 00 Aarcelis Seybold - Externa l Floaters, bilateral Floaters, bilateral Disease Active 05-12 00:00: 00 Aracelis Seybold - Externa l Leukorrhea , not specified as infective Leukorrhea , not specified as infective Disease Active 12-31 00:00: 00 [facility] Dysuria Dysuria Disease Active 12-31 00:00: 00 [facility] Pelvic pain Pelvic pain Disease Active 12-31 00:00: 00 [facility] Nexplanon in place Nexplanon in place Disease Active 07-03 00:00: 00 [facility] Dyspareuni a Other specified dyspareuni a Problem [facility] 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, 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 Cervical high risk human papillomav irus (HPV) DNA test positive Problem [facility] Ovarian dysfunctio n Ovarian Dysfunctio n Problem [facility] Polycystic ovaries PCOS (polycysti c ovarian syndrome) Problem [facility] Amenorrhea Amenorrhea Problem [facility] Intermenst rual bleeding - irregular Excessive and frequent menstruati on with irregular cycle Problem [facility] Vaginal Papanicola ou smear positive for malignant neoplasm Cytologic evidence of malignancy on smear of vagina Problem [facility] Endometrio sis Endometrio sis Problem [facility] Dysmenorrh ea Dysmenorrh ea Problem [facility] Dysfunctio nal uterine bleeding Dysfunctio nal Uterine Bleeding Problem [facility] Psychologi c dyspareuni a Dyspareuni a not due to a substance or known physiologi madisyn condition Problem [facility] consult consult Problem [facility] All[facility]ies, Adverse Reactions, Alerts Allergy Name Allergy Type Status Severity Reaction(s) Onset Date Inactive Date Treating Clinician Comments Source No Known Allergie s DA Active U 2019-12 00:00: 00 [facility] No Known Allergie s DA Active U 2019-12 00:00: 00 [facility] No Known Allergie s DA Active U 02-17 00:00: 00 [facility] No Known Allergie s DA Active U 02-17 00:00: 00 [facility] No Known Allergie s DA Active U 2014-12 00:00: 00 [facility] No Known Allergie s DA Active U 2014-12 00:00: 00 [facility] NO KNOWN ALLERGIE S Drug Class Active [facility] [place] Social History Social Habit Start Date Stop [...] (event) 2022-10-18 00:00:00 2022-10-28 13:37:00 Not sure [facility] Sex assigned at 2000 00:00:00 2000 00:00:00 Aracelis Haas - Jesus Smoking Status Start Date Stop Date Source Ex-smoker 2024-01-30 00:00:00 2024-01-30 00:00:00 Екатерина powers Waldo - External Never smoked tobacco [facility] Medications Ordered Medication Name Filled Medication Name Start Date Stop Date Current Medication? Ordering Clinician Indication Dosage Frequency Signature (SIG) Comments Components Source Nortriptyli ne HCl 10 MG oral Capsule 07-19 00:00: 00 Yes [id number] 10mg QD Take 1 capsule (10 mg total) by mouth nightly. Aracelis powers Rizatriptan Benzoate 5 MG oral TABLET DISPERSIBLE 07-19 00:00: 00 Yes [id number] 5mg QD Take 1 tablet (5 mg total) by mouth daily as needed for migraine (May repeat in 2 hours if unresolved . Do not exceed 30 mg in 24 hours.). Aracelis powers Ondansetron HCl 4 MG oral Tablet 06-30 00:00: 00 Yes [id number] 4mg Q.51001043 [id number] 3D Take 1 tablet (4 mg total) by mouth every 8 hours as needed for nausea. Aracelis powers Benzonatate 100 MG oral Capsule 06-30 00:00: 00 07-19 00:00 :00 No [id number] 100mg Q.49096240 [id number] 3D Take 1 capsule (100 mg total) by mouth 3 times daily as needed for cough. Aracelis powers PAXLOVID STANDARD (30) (300/100) Therapy Pack 06-30 00:00: 00 07-06 04:59 :00 No [id number] Take two 150 mg nirmatrelv ir (pink) tablets with one 100 mg ritonavir (white) tablet by mouth two times daily for 5 days. Aracelis powers Rizatriptan Benzoate 5 MG oral TABLET DISPERSIBLE 05-12 00:00: 00 07-19 00:00 :00 No [id number] 5mg Take 1 tablet (5 mg total) by mouth once as needed for migraine (May repeat in 2 hours if unresolved . Do not exceed 30 mg in 24 hours.). Aracelis powers Sertraline HCl 25 MG oral Tablet 05-12 00:00: 00 07-19 00:00 :00 No [id number] 25mg QD Take 1 tablet (25 mg total) by mouth daily. Aracelis powers Topiramate 25 MG oral Tablet 05-12 00:00: 00 05-12 00:00 :00 No [id number] 25mg Take 1 tablet (25 mg total) by mouth 2 times daily. Aracelis powers linaCLOtide (Linzess) 145 MCG oral Capsule 05-04 00:00: 00 07-19 00:00 :00 No [id number] 145ug QD Take 1 capsule (145 mcg total) by mouth daily. Aracelis powers Ondansetron (ZOFRAN) 4 MG oral TABLET DISPERSIBLE 05-04 00:00: 00 06-30 00:00 :00 No [id number] 4mg Q.[id number] 3D Take 1 tablet (4 mg total) by mouth every 8 hours as needed for nausea. Aracelis powers Mounjaro 5 MG/0.5ML subcutaneou s Solution Pen-injecto r 04-29 00:00: 00 Yes Inject 1 injection into the skin once a week for 4 weeks Aracelis powers TRIMETHOPRI M-POLYMYXIN B 71629-5.1 UNIT/ML-% ophthalmic Solution 03-24 00:00: 00 07-19 00:00 :00 No [id number] 1[drp] Q4H Apply 1 drop to eye every 4 (four) hours. Aracelis powers Benzonatate (Tessalon Perles) 100 MG oral Capsule 03-24 00:00: 00 06-30 00:00 :00 No [id number] 100mg Q.18921209 [id number] 3D Take 1 capsule (100 mg total) by mouth 3 times daily as needed for cough. Aracelis powers Lidocaine HCl (Lidocaine Viscous HCl) 2 % mouth/throa t Solution 03-19 00:00: 00 07-19 00:00 :00 No [id number] 15mL Take 15 mL by mouth every 3 hours as needed. Aracelis powers Azelastine HCl 0.1 % nasal Solution 03-19 00:00: 00 07-19 00:00 :00 No [id number] 1{spray } Q.5D Use 1 spray in each nostril 2 times daily. Aracelis powers Norgestimat e-Ethinyl Estradiol (Ortho Tri-Cyclen Lo) 0.18/0.215/ 0.25 MG-25 MCG oral Tablet 03-14 00:00: 00 03-24 00:00 :00 No [id number] 1{tbl} Take 1 tablet by mouth daily. Aracelis powers Nitrofurant oin Monohyd Macro (Macrobid) 100 MG oral Capsule 03-14 00:00: 00 03-24 00:00 :00 No [id number] 100mg Take 1 capsule (100 mg total) [...] Solution Auto-inject or 03-04 00:00: 00 Yes [id number] 5mg Inject 0.5 mL (5 mg total) into the skin once a week. Aracelis powers Tirzepatide -Weight Management (Zepbound) 5 MG/0.5ML subcutaneou s Solution Auto-inject or 03-04 00:00: 00 05-04 00:00 :00 No [id number] 5mg Inject 0.5 mL (5 mg total) into the skin once a week. Aracelis powers Ondansetron (ZOFRAN) 4 MG oral TABLET DISPERSIBLE 03-04 00:00: 00 05-04 00:00 :00 No [id number] 4mg Q.[id number] 3D Take 1 tablet (4 mg total) by mouth every 8 hours as needed for nausea. Aracelis powers Topiramate 25 MG oral Tablet 03-04 00:00: 00 05-04 00:00 :00 No [id number] 25mg Take 1 tablet (25 mg total) [...] Solution Auto-inject or 02-01 00:00: 00 Yes [id number] 2.5mg Inject 0.5 mL (2.5 mg total) into the skin once a week. Aracelis powers Topiramate 25 MG oral Tablet 02-01 00:00: 00 Yes [id number] 25mg Take 1 tablet (25 mg total) by mouth 2 times daily. Aracelis powers Sumatriptan Succinate 25 MG oral Tablet 02-01 00:00: 00 05-12 00:00 :00 No [id number] 25mg Take 1 tablet (25 mg total) by mouth once as needed for migraine (May repeat in 2 hours if unresolved . Do not exceed 200 mg in 24 hours.). Aracelis powers linaCLOtide (Linzess) 145 MCG oral Capsule 02-01 00:00: 00 05-04 00:00 :00 No [id number] 145ug Take 1 capsule (145 mcg total) by mouth daily. Aracelis powers Fluconazole 150 MG oral Tablet 02-01 00:00: 00 03-24 00:00 :00 No [id number] 150mg Take 1 tablet (150 mg total) [...] mg by mouth as needed for Migraine. [facility] sumatriptan 100 mg tablet 2021-12 00:00: 00 Yes [id number] 100mg Take 1 tablet by mouth as needed for Migraine. [facility] dulaglutide (TRULICITY) 0.75 mg/0.5 mL PnIj 2021-12 14:28: 44 Yes inject under the skin. [facility] SUMAtriptan 50 mg tablet 2021-12 14:28: 44 Yes 50mg Take 50 mg by mouth as needed for Migraine. [facility] NaCl 0.9% (NS) IV infusion 1,000 mL 08-26 07:45: 00 08-26 07:54 :00 No 1000mL at 999 mL/hr, Intravenou s, ONCE, 1 dose, On Fri08/26/22 at 0245, Routine [facility] ketorolac (TORADOL) injection 60 mg 08-26 07:15: 00 08-26 06:28 :00 No 60mg 60 mg, Intramuscu lar, ONCE, 1 dose, On Fri08/26/22 at 0215, Routine [facility] methocarbam oL (ROBAXIN) tablet 1,000 mg 08-26 06:15: 00 08-26 06:16 :00 No 1000mg 1,000 mg, Oral, ONCE, 1 dose, On Fri08/26/22 at 0115, ROSALEE [facility] methocarbam oL 500 mg tablet 08-26 00:00: 00 Yes [id number] 500mg Take 1 tablet by mouth every 6 (six) hours as needed for Pain (scale 7-10) (MUSCLE SPASM). [facility] ketorolac 10 mg tablet 08-26 00:00: 00 Yes [id number] 10mg Take 1 tablet by mouth every 6 (six) hours as needed for Pain (scale 7-10). [facility] HYDROcodone -acetaminop hen (NORCO 5) 5-325 mg tablet 1 tablet 07-05 05:15: 00 07-05 06:29 :00 No 1{tbl} 1 tablet, Oral, ONCE, 1 dose, On Fri07/05/22 at 0015, ROSALEE [facility] Cyclobenzap rine HCl 10 MG Cyclobenzap [...] disintegrat ing tablet 02-22 00:00: 00 Yes [id number] 4mg Take 1 tablet by mouth every 8 (eight) hours as needed for Nausea and Vomiting (N/V). [facility] sucralfate 1 gram tablet 02-22 00:00: 00 07-05 00:00 :00 No [id number] 1g Take 1 tablet by mouth before meals and at bedtime. [facility] dicyclomine (BENTYL) 10 mg capsule 02-22 00:00: 00 07-05 00:00 :00 No [id number] 10mg Take 1 capsule by mouth every 8 (eight) hours as needed for Abdominal pain. [facility] Balcoltra 0.1-20 MG-MCG(21) Balcoltra 0.1-20 MG-MCG(21) [...] Bexsero (Meningococcal Group B) Unknown Completed [facility] External MMR- Measles, Mumps, Rubella Unknown Completed Ar[facility] External Meningococcal Vaccine Polysaccharide Unknown Completed Aracelis Morgan d - External Pneumococcal Vaccine, Conjugate 7 Unknown Completed Aracelis Haas External IPV- Inactivated Polio Vaccine Unknown Completed [facility] External Tdap- (Boostrix, Adacel) Unknown Completed [facility] External Varicella Vaccine Unknown Com[facility] - [facility] DTaP Unspecified Unknown Completed Dennis [facility] - External Influenza Virus Vaccine, No Preserv, age 6 months and up Unknown Completed Aracelis S [facility] - External Hepatitis B, Adolescent Or Pediatric [facility] H[facility] ([facility]OC) Unknown [facility] - External HIB- Haemophilus Influenzae Type B Unknown Completed Aracelis [facility] bold - External Meningococcal Vaccine- Conjugate(Menactra) Unknown Completed [facility] eybold - External Bexsero (Meningococcal Group B) Unknown [facility] MMR- Measles, Mumps, Rubella Unknown [facility] Meningococcal Vaccine Polysaccharide Unknown [facility] Pneumococcal Vaccine, Conjugate 7 Unknown Completed Aracelis Seybold - External IPV- Inactivated Polio Vaccine Unknown Completed Aracelis Seybold - External Tdap- (Boostrix, Adacel) Unknown [facility] Varicella Vaccine Unknown Completed lsey Seybold - External DTaP Unspecified Unknown Completed [facility] Seybold - External Influenza Virus Vaccine, No Preserv, age 6 months and up Unknown [facility] B, Adolescent Or Pediatric [facility] Com[facility] ybold - External HIB- Haemophilus Influenzae Type B Unknown Completed Aracelistrice Carnes bold - External Meningococcal Vaccine- Conjugate(Menactra) Unknown Completed [facility] eybold - External Bexsero (Meningococcal Group B) Unknown Completed [facility] - External MMR- Measles, Mumps, Rubella Unknown [facility] Meningococcal Vaccine Polysaccharide Unknown Completed Aracelis gildaol d - External Pneumococcal Vaccine, Conjugate 7 Unknown [facility]V- Inactivated Polio Vaccine Unknown Completed [facility] - External Tdap- (Boostrix, Adacel) Unknown [facility] Varicella Vaccine Unknown Completed Ke lsey Seybold - External DTaP Unspecified Unknown Completed [facility] Seybold - External Influenza Virus Vaccine, No Preserv, age 6 months and up Unknown Completed [facility] eybold - External Hepatitis B, Adolescent Or Pediatric Unknown Completed Aracelis Seybold - External Hib (HbOC) Unknown Completed [facility] ybold - External HIB- Haemophilus Influenzae Type B Unknown Completed [facility] bold - External Meningococcal Vaccine- Conjugate(Menactra) Unknown Completed [facility] eybold - External Bexsero (Meningococcal Group B) Unknown Completed Aracelis Seybold - External MMR- Measles, Mumps, Rubella Unknown Completed [facility] Seybold - External Meningococcal Vaccine Polysaccharide Unknown Completed Aracelis Seybol d - External Pneumococcal Vaccine, Conjugate 7 Unknown Completed Aracelis Seybold - External IPV- Inactivated Polio Vaccine Unknown [facility] Tdap- (Boostrix, Adacel) Unknown Completed [facility] Seybold - External Varicella Vaccine Unknown [facility] - External DTaP Unspecified Unknown Completed [facility] Seybold - External Influenza Virus Vaccine, No Preserv, age 6 months and up Unknown Completed [facility] eybold - External Hepatitis B, Adolescent Or Pediatric Unknown Completed [facility] Seybold - External Hib (HbOC) Unknown Completed [facility] ybold - External HIB- Haemophilus Influenzae Type B Unknown Completed [facility] bold - External Meningococcal Vaccine- Conjugate(Menactra) Unknown Completed [facility] eybold - External Bexsero (Meningococcal Group B) Unknown Completed [facility] Seybold - External MMR- Measles, Mumps, Rubella Unknown [facility] Meningococcal Vaccine Polysaccharide Unknown [facility] Pneumococcal Vaccine, Conjugate 7 Unknown [facility] - [facility] IPV- Inactivated Polio Vaccine Unknown [facility] - [facility] Tdap- (Boostrix, Adacel) Unknown [facility] Varicella Vaccine Unknown Completed [facility] Seybold - External DTaP Unspecified Unknown Completed [facility] Seybold - External Influenza Virus Vaccine, No Preserv, age 6 months and up Unknown Completed [facility] eybold - External Hepatitis B, Adolescent Or Pediatric Unknown Completed [facility] Seybold - External Hib (HbOC) Unknown Completed [facility] Se ybold - External HIB- Haemophilus Influenzae Type B Unknown Completed [facility] bold - External Meningococcal Vaccine- Conjugate(Menactra) Unknown Completed [facility] eybold - External Bexsero (Meningococcal Group B) Unknown Completed [facility] Seybold - External MMR- Measles, Mumps, Rubella Unknown Completed Aracelis Seybold - External Meningococcal Vaccine Polysaccharide Unknown Completed Aracelis Seybol d - External Pneumococcal Vaccine, Conjugate 7 Unknown Completed [facility] Seybold - External IPV- Inactivated Polio Vaccine Unknown Completed [facility] Seybold - External Tdap- (Boostrix, Adacel) [...] Systolic blood pressure 2024-02-02 20:58:00 110 mm[Hg] Arcaelis Seybo ld - External Diastolic blood pressure [...] a OBGYN height 2023-09-11 15:15:00 63 [in_i] [facility] blood pressure systolic 2023-09-11 15:15:00 114 mm[Hg] [facility] blood pressure diastolic 2023-09-11 15:15:00 76 mm[Hg] [facility] weight 2023-01-21 14:15:00 182 [lb_av] [facility] bmi 2023-01-21 14:15:00 32.24 kg/m2 [facility] height 2023-01-21 14:15:00 63 [in_i] [facility] blood pressure systolic 2023-01-21 14:15:00 110 mm[Hg] [facility] blood pressure diastolic 2023-01-21 14:15:00 74 mm[Hg] [facility] weight 2022-12-13 09:00:00 190 [lb_av] [facility] bmi 2022-12-13 09:00:00 33.65 kg/m2 [facility] height 2022-12-13 09:00:00 63 [in_i] [facility] blood pressure systolic 2022-12-13 09:00:00 117 mm[Hg] [facility] blood pressure diastolic 2022-12-13 09:00:00 82 mm[Hg] [facility] Systolic blood pressure 2022-10-28 19:54:00 108 mm[Hg] [facility] Diastolic blood pressure 2022-10-28 19:54:00 74 mm[Hg] [facility] Heart rate 2022-10-28 19:54:00 55 [facility] 2022-10-28 19:54:00 160 cm [facility] Body weight 2022-10-28 19:54:00 87.998 kg [facility] BMI 2022-10-28 19:54:00 34.37 kg/m2 [facility] Oxygen saturation in Arterial blood by Pulse oximetry 2022-10-28 19:54:00 96 /min [facility] Systolic blood pressure 2022-10-21 20:45:00 113 mm[Hg] [facility] Diastolic blood pressure 2022-10-21 20:45:00 73 mm[Hg] [facility] Heart rate 2022-10-21 20:45:00 68 /min [facility] Oxygen saturation in Arterial blood by Pulse oximetry 2022-10-21 20:45:00 100 /min [facility] Body weight 2022-10-21 20:39:00 89.767 kg [facility] BMI 2022-10-21 20:39:00 35.06 kg/m2 [facility] Body temperature 2022-10-21 20:31:00 36.67 Karli [facility] Respiratory rate 2022-10-21 20:31:00 17 /min [facility] Body height 2022-10-21 20:31:00 160 cm [facility] Systolic blood pressure 2022-08-26 07:00:00 108 mm[Hg] [facility] Diastolic blood pressure 2022-08-26 07:00:00 72 mm[Hg] [facility] Heart rate 2022-08-26 07:00:00 67 /min [facility] Respiratory rate 2022-08-26 07:00:00 16 /min [facility] Oxygen saturation in Arterial blood by Pulse oximetry 2022-08-26 07:00:00 98 /min [facility] Body temperature 2022-08-26 05:32:00 36.67 Karli [facility] Body height 2022-08-26 05:32:00 160 cm [facility] Body weight 2022-08-26 05:32:00 90.719 kg [facility] BMI 2022-08-26 05:32:00 35.43 kg/m2 [facility] Systolic blood pressure 2022-07-05 05:02:00 115 mm[Hg] [facility] Diastolic blood pressure 2022-07-05 05:02:00 68 mm[Hg] [facility] Heart rate 2022-07-05 05:02:00 77 /min [facility] Body temperature 2022-07-05 05:02:00 37.28 Karli [facility] Respiratory rate 2022-07-05 05:02:00 18 /min [facility] Body height 2022-07-05 05:02:00 160 cm [facility] Body weight 2022-07-05 05:02:00 88.451 kg [facility] BMI 2022-07-05 05:02:00 34.54 kg/m2 [facility] Oxygen saturation in Arterial blood by Pulse oximetry 2022-07-05 05:02:00 98 /min [facility] Procedures Procedure Date / Time Performed Performing Clinician Source INSURANCE CORRESPONDENCE 2022-11-05 06:01:00 Doc tor Unassigned, Kim [facility] ASSIGNMENT OF BENEFITS 2022-10-21 20:05:08 Docto r Unassigned, Kim [facility] REFERRAL- REQUEST/RESPONSE 2022-10-10 06:01:00 Doctor Unassigned, Kim [facility] REFERRAL- REQUEST/RESPONSE 2022-09-30 05:01:00 Doctor Unassigned, Kim [facility] TROPONIN I 2022-08-26 06:54:00 Ana Talley [facility] COMP. METABOLIC PANEL ([id number]) 2022-08-26 06:54:00 Ana Talley [facility] CBC WITH DIFF 2022-08-26 06:54:00 Ana Talley [facility] POCT GLUCOSE (AUTOMATED) 2022-08-26 06:29:00 Jayson Talley [facility] POCT TEST 2022-08-26 06:01:00 Ana Talley [facility] CONSENT/REFUSAL FOR DIAGNOSIS AND TREATMENT 2022-08-26 05:27:18 Doctor Unassigned, Kim [facility] XR HUMERUS 2 VW LEFT 2022-07-05 05:43:33 Racquel Brennan [facility] XR SHOULDER 2+ VW LEFT 2022-07-05 05:43:33 Grazyna Brennan [facility] CT LUMBAR SPINE WO CONTRAST 2022-07-05 05:38:10 Stanislav Brennan [facility] POCT TEST 2022-07-05 05:25:00 Stanislav Brennan [facility] [id number] 2020-04-22 00:00:00 ZEILO [facility] [id number] 2020-04-22 00:00:00 [facility] Encounters Start Date/Time End Date/Time Encounter Type Admission Type Attending [facility] Care Facility Care Department Encounter ID Source 2023-09-09 08:07:00 Outpatient PLZOBG PLZOBG [id number] [facility] 2022-12-13 09:04:03 Outpatient PLZOBG PLZOBG [id number] [facility] 2020-10-25 13:00:00 Inpatient EL RobertidSirenay [facility] OUTD [id number] [facility] 2020-05-05 09:24:00 Inpatient EL RobertidSirenay [facility] LD [id number] [facility] 2020-04-21 06:33:00 Inpatient ZeidSirenay [facility] FANNY [id number] [facility] 2020-03-01 00:10:00 Inpatient EL ZeidSirenay [facility] OBOP [id number] [facility] 2020-02-18 13:39:00 Inpatient EL ZeidVeronicauay [facility] OBOP [id number] [facility] 2020-02-02 16:02:00 Inpatient ZeidSirenay [facility] FANNY [id number] [facility] 2024-11-08 11:00:00 2024-11-08 11:00:00 Outpatient JOHN MELARA [id number] [facility] 2024-08-25 13:00:00 2024-08-25 13:00:00 Outpatient KAYLAH GUERRERO [facility] [id number] [facility] 2024-08-13 00:00:00 2024-08-13 00:00:00 Outpatient JOHN MELARA [facility] [id number] Aracelis Seybold 2024-07-27 09:45:00 2024-07-27 09:45:00 Outpatient ARACELIS CARRASCO [id number] Aracelis Seybold 2024-07-19 08:45:00 2024-07-19 08:45:00 Outpatient LAB11 ARACELIS CARRASCO [id number] Aracelis Seybold 2024-07-19 08:00:00 2024-07-19 08:00:00 Outpatient JOHN MELARA ARACELIS CARRASCO [id number] [facility] 2024-07-19 08:00:00 2024-07-19 08:00:00 Outpatient SARITHA JOHN CARRASCO [id number] [facility] 2024-06-30 08:00:00 2024-06-30 08:00:00 Outpatient BILLINGSLUIS HERNANDEZ ARACELIS CARRASCO [id number] [facility] 2024-06-09 15:00:00 2024-06-09 15:00:00 Outpatient CESAR KAYLAH CARRASCO [id number] [facility] 2024-05-12 16:30:00 2024-05-12 16:30:00 Outpatient KAYLAH GUERRERO [id number] [facility] 2024-05-04 13:00:00 2024-05-04 13:00:00 Outpatient CESAR KAYLAH CARRASCO [id number] Aracelis [facility] 2024-03-24 07:45:00 2024-03-24 07:45:00 Outpatient TONE GUERRERO [id number] Aracelis Sey[facility] 2024-03-19 13:00:00 2024-03-19 13:00:00 Outpatient CHINEDU BRANDON [id number] Aracelis Seybold 2024-03-19 12:30:00 2024-03-19 12:30:00 Outpatient VIELKA RUBIO ARACELIS [id number] Aracelis [facility] 2024-03-19 11:30:00 2024-03-19 11:30:00 Outpatient DEBORA REDMOND ARACELIS ARACELIS [id number] Aracelis [facility] 2024-03-14 00:00:00 2024-03-14 00:00:00 Outpatient HUNDL, KAYLAH ARACELIS CARRASCO [id number] Ar[facility]elis [facility] 2024-03-04 13:30:00 2024-03-04 13:30:00 Outpatient HUNDL, KAYLAH ARACELIS ARACELIS [id number] Ar[facility]elis Haas 2024-02-25 14:00:00 2024-02-25 14:00:00 Outpatient HUNDL, KAYLAH ARACELIS CARRASCO [id number] Aracelis [facility]as 2024-02-02 15:45:00 2024-02-02 15:45:00 Outpatient LAB90 ARACELIS CARRASCO [id number] Aracelis [facility] 2024-02-02 15:00:00 2024-02-02 15:00:00 Outpatient HUNDL, KAYLAH ARACELIS CARRASCO [id number] Aracelistrice [facility] 2023-09-11 00:00:00 2023-09-11 00:00:00 Office Visit, Est Pt., Level 3 PLZOBG PLZOBG [id number] [facility] 2023-01-21 00:00:00 2023-01-21 00:00:00 (ESTPTGYN) Establishe d Patient Taxonomist PLZOBG PLZOBG [id number] [facility] 2023-01-17 00:00:00 2023-01-17 00:00:00 (TEL) PLZOBG PLZOBG [id number] [facility] 2022-12-13 00:00:00 2022-12-13 00:00:00 (ESTPTGYN) Establishe d Patient Taxonomist PLZOBG PLZOBG [id number] [facility] 2022-11-12 16:00:00 2022-11-12 16:00:00 Outpatient TIFFANY NARANJO [facility] [id number] [facility] 2022-11-05 00:00:00 2022-11-05 00:00:00 Orders Only Doctor Unassigned, Kim [facility] 1.2840.114 350.1.13.10 4.2.7.2.686 [id number] [facility] 2022-10-28 13:40:00 2022-10-28 14:40:00 Outpatient R EVANS GUSMAN [facility] [id number] [facility] 2022-10-28 13:40:00 2022-10-28 14:40:00 [facility] 1.840.114 350.1.13.10 4.2.7.2.686 [id number] [facility] 2022-10-21 14:40:00 2022-10-21 14:59:11 Outpatient R SHEILA OLIVOANA [facility] [id number] [facility] 2022-10-21 14:40:00 2022-10-21 14:59:11 [facility] 1.840.114 350.1.13.10 4.2.7.2.686 [id number] [facility] 2022-10-21 00:00:00 2022-10-21 00:00:00 Orders Only Doctor Unassigned, Kim [facility] 1.284.114 350.1.13.10 4.2.7.2.686 [id number] [facility] 2022-10-10 00:00:00 2022-10-10 00:00:00 Orders Only Doctor Unassigned, Kim [facility] 1.2840.114 350.1.13.10 4.2.7.2.686 [id number] [facility] 2022-09-30 00:00:00 2022-09-30 00:00:00 Orders Only Doctor Unassigned, Kim [facility] 1.2.840.114 350.1.13.10 4.2.7.2.686 [id number] [facility] 2022-08-26 00:28:00 2022-08-26 03:02:00 Emergency Ana Talley [facility] 1.2.840.114 350.1.13.10 4.2.7.2.686 [id number] [facility] 2022-08-26 00:28:00 2022-08-26 03:02:00 Emergency X ANA TALLEY [facility] [id number] [facility] 2022-07-05 00:08:00 2022-07-05 01:49:00 Emergency X STANISLAV BRENNAN [facility] ERT [id number] [facility] 2022-07-05 00:08:00 2022-07-05 01:49:00 Emergency Stanislav Brennan [facility] 1.2.840.114 350.1.13.10 4.2.7.2.686 [id number] [facility] 2022-07-05 00:08:00 2022-07-05 01:49:00 Emergency X STANISLAV BRENNAN [facility] E[facility] [id number] [facility] 2022-02-22 01:04:00 2022-02-22 02:42:00 Emergency Delano Wright [facility] 1.2.840.114 350.1.13.10 4.2.7.2.686 [id number] [facility] 2022-02-22 01:04:00 2022-02-22 02:42:00 Emergency X DELANO WRIGHT [facility] ERT [id number] [facility] 2020-03-30 10:00:00 2020-03-30 10:00:00 ZAK Blackmon M.D. ZAK ASIF M.D. [facility] [id number] [place] [facility] 2020-02-29 13:15:00 2020-02-29 13:15:00 Appointmen t; PEDI-CARDS -US, [facility] P[facility]I-CARDS- [facility], [facility]TP [facility] [id number] [facility] Results Test Description Test Time Test Comments Results Result Co mments Source [facility]. METABOLIC PANEL (48458)2022-08-26 07:13:36* Test Item Value Reference Range Interpretation Comme nts NA (test code = 9095564765) 136 mmol/L 135-145 K (test code = 9196405105) 4.5 mmol/L 3.5-5 CL (test code = 3221664748) 99 mmol/L 98-108 CO2 TOTAL (test code = 6433794129) 26 mmol/L 23-31 AGAP (test code = 1709911781) 2-16 BUN (test code = 5916348261) 18 mg/dL 7-23 GLUCOSE (test code = 2209138242) 120 mg/dL 70-110 H CREATININE (test code = 1534401823) 0.83 mg/dL 0.5-1.04 TOTAL BILI (test code = 3266789456) 0.4 mg/dL 0.1-1.1 CALCIUM (test code = 8822814999) 9.7 mg/dL 8.6-10.6 T PROTEIN (test code = 7528063306) 7.6 g/dL 6.3-8.2 ALBUMIN (test code = 5721423697) 4.7 g/dL 3.5-5 ALK PHOS (test code = 5734036928) 85 U/L 34-122 ALTv (test code = 1742-6) 32 U/L 5-35 AST(SGOT) (test code = 0666596919) 25 U/L 13-40 eGFR (test code = 9059412767) mL/min/1.73m2 GISELLE (test code = GISELLE) Association [...] imaging tests). Lab Interpretation (test code = 07390-0) Abnormal [facility] WITH [id number] 07:00:37* Test Item Value Reference Range Interpretation Comme nts WBC (test code = 6690-2) See_Comment [[employer]] The system which generated this result transmitted reference range: 4.30 - 11.10 10*3/?L. The reference range was not used to interpret this result as normal/abnormal. RBC (test code = 789-8) See_Comment [Automated [employer]] The system which generated this result transmitted [...] 34.6 g/dL 31.6-35.1 RDW-SD (test code = 53811-3) 39.3 fL 39-49.9 RDW-CV (test code = 788-0) 11.7 % 12-15.5 L PLT (test code = 777-3) See_Comment [Automated [employer]] The system which generated this result transmitted reference range: 166 - 358 10*3/?L. The reference range was not used to interpret this result as normal/abnormal. MPV (test code = 42158-1) 9.2 fL 9.5-12.9 L NRBC/100 WBC (test code = 2296095074) See_Comment [Automated [employer]] The system which generated this result transmitted reference range: 0.0 - 10.0 /100 WBCs. The reference range was not used to interpret this result as normal/abnormal. NRBC x10^3 (test code = 3219144722) See_Comment [Automated [employer]] The system which generated this result transmitted reference range: 10*3/?L. The reference range was not used to interpret this result as normal/abnormal. GRAN MAT (NEUT) % (test code = 770-8) 71.7 % IMM GRAN % (test code = 8831990660) 0.50 % LYMPH % (test code = 736-9) 21.5 % MONO % (test code = 5905-5) 4.9 % EOS % (test code = 713-8) 0.8 % BASO % (test code = 706-2) 0.6 % GRAN MAT x10^3(ANC) (test code = 1863493772) 7.55 10*3/uL 1.88-7.09 H IMM GRAN x10^3 (test code = 0922157911) 0.05 10*3/uL 0-0.06 LYMPH x10^3 (test code = 731-0) 2.26 10*3/uL 1.32-3.29 MONO x10^3 (test code = 742-7) 0.51 10*3/uL 0.33-0.92 EOS x10^3 (test code = 711-2) 0.08 10*3/uL 0.03-0.39 BASO x10^3 (test code = 704-7) 0.06 10*3/uL 0.01-0.07 Lab Interpretation (test code = 48326-0) Abnormal [facility] GLUCOSE (AUTOMATED)2022-08-26 06:32:19* Test Item Value Reference Range Interpretation Comme nts POCT GLU (test code = 6689909176) 93 mg/dL 70-110 Lab Interpretation (test cod e = 56475-2) Normal [facility] [id number] 06:01:00* Test Item Value Reference Range Interpretation Comme nts POCT PREG (test code = 1605) negative On board controls acceptable with C Line (test code = 3574) positive POCT PREG LOT # (test code = 3575) [id number] POCT PREG TEST DATE ( test code = 3576) 11/30/2023 Lab Interpretation (test cod e = 34569-9) Normal [facility] [id number] 05:25:00* Test Item Value Reference Range Interpretation Comme nts POCT PREG (test code = 1605) Negative On board controls acceptable with C Line (test code = 3574) Present POCT PREG LOT # (test code = 3575) HCG [id number] POCT PREG TEST DATE ( test code = 3576) 09/30/2023 Lab Interpretation (test cod e = 24668-3) [id number] 15:07:00* Test Item Value Reference Range Interpretation Comme nts OVARY W/WO TUBE,NON-NEOPLASTIC (test code = OVARNOTNEO) RUN DATE: 10/30/20 [facility] PAGE 1 RUN TIME: 1758 Specimen Inquiry RUN USER: INTERFACE PATIENT: ZEYNEP UGARTE LOC: [facility] U #: [id number] AGE/SX: 20/F ROOM: RE10/25/20REG DR: Bruno Alvarenga MD : 99 BED: DIS: STATUS: [facility] TLOC: SPEC #: [id number] RECD: 10/25/20 STATUS: MANDEEP JANEE #: [id number] GUY: 10/25/20- SUBM DR: Bruno Alvarenga MD ENTERED: 10/25/20-1521 SP TYPE: CLARY MOTA DR: ORDERED: LEVEL IV CODES: W36028 - OVARY, NOS PROCEDURES: LEVEL IV (Incomplete) TISSUES: OVARY, NOS - RIGHT OVARIAN CYST WALL CLINICAL HISTORY 20 year old, pelvic pain, right ovarian cyst (kr) FINAL DIAGNOSIS Right ovarian cyst, resection: - corpus luteum cyst CPT code(s): 17221 cds/wpd GROSS DESCRIPTION ANATOMIC SOURCE OF TISSUE [...] Russell 10/30/20 1507 END OF REPORT URINALYSIS [id number] 10:05:00* Test Item Value Reference Range Interpretation [...] SEEN A URINE SAMPLE: CLEAN CATCHUR HCG [id number] 10:05:00* Test Item Value Reference Range Interpretation Comme nts UR HCG QUAL (test code = HCGQLU) NEGATIVE 1. Very dilute u rine specimens, as indicated by a lowspecific gravity, may not contain signs sales representative levels ofhCG. 2. False negative results may occur when the levels of hCGare below the sensitivity level of the test. If is still suspected, a first morningurine specimen should be collected 48 hours later andtested. URINE SAMPLE: CLEAN CATCHCOVID 19 Asymptomatic IH [id number] 09:58:00* Test Item Value Reference Range Interpretation [...] testsfor detection and/or diagnosis of COVID-19 under Skrgqtc501(b)(1) of the Act, 21 U.S.C. 360bbb-3(b)(1), unless theauthorization is terminated or revoked sooner. URINALYSIS [id number] 09:56:00* Test Item Value Reference Range Interpretation [...] #/HPF RARE-FEW URINE SAMPLE: CLEAN CATCHUR HCG [id number] 09:56:00* Test Item Value Reference Range Interpretation Comme nts UR HCG QUAL (test code = HCGQLU) NEGATIVE 1. Very dilute u rine specimens, as indicated by a lowspecific gravity, may not contain signs sales representative levels ofhCG. 2. False negative results may occur when the levels of hCGare below the sensitivity level of the test. If is still suspected, a first morningurine specimen should be collected 48 hours later andtested. URINE SAMPLE: CLEAN CATCHURINALYSIS [id number] 09:40:00* Test Item Value Reference Range Interpretation [...] #/HPF RARE-FEW URINE SAMPLE: CLEAN CATCHUR HCG [id number] 09:40:00* Test Item Value Reference Range Interpretation Comme nts UR HCG QUAL (test code = HCGQLU) NEGATIVE 1. Very dilute u rine specimens, as indicated by a lowspecific gravity, may not contain signs sales representative levels ofhCG. 2. False negative results may occur when the levels of hCGare below the sensitivity level of the test. If is still suspected, a first morningurine specimen should be collected 48 hours later andtested. URINE SAMPLE: CLEAN CATCHCBC W/AUTO [id number] 09:39:00* Test Item Value Reference Range Interpretation [...] (test code = PLTMR) NORMAL NORMAL HGB [id number] 04:53:00* Test Item Value Reference Range Interpretation Comme nts HEMOGLOBIN (test code = HGB) 9.5 g/dL 10.7-13.9 L RESULTS VERIFIED BY REPEAT ANALYSIS HEMATOCRIT (test code = HCT) 29.2 % 32.1-42.1 L Coronavirus 2019 nCoV [id number] 09:52:00* Test Item Value Reference Range Interpretation Comme nts Coronavirus 2019 nCoV Bedside (test code = COVNONPUIBED) Negative Negative RESULTS CALLED Aris GORDON PREAD BACK & CONFIRMED? DENI IGLESIAS.MSC 04/21/20 0914 This result does not rule out co-infections [...] USE AUTHORIZATION FROM FDA AG HEPATITIS B [id number] 09:01:00* Test Item Value Reference Range Interpretation Comme [facility] AG HEPATITIS B SURFACE (test code = HBSAG) NONREACTIVE NONREACTIVE IS CONSENT FORM SIGNED FOR HIV TESTING? YAB HEPATITIS C [id number] 09:01:00* Test Item Value Reference Range Interpretation Comme [facility] AB HEPATITIS C (test code = HCVAB) NONREACTIVE NONREACTIVE SIGNAL TO CUTOFF (test code = CUTOFF) 0.09 <0.80 N IS CONSENT FORM SIGNED FOR HIV TESTING? STANLEY [id number] 09:01:00* Test Item Value Reference Range Interpretation Comme nts AB TREPONEMA (test code = TREPAB) NONREACTIVE NONREACTIVE IS CONSENT FORM SIGNED FOR HIV TESTING? STANLEY HIV 1 09:01:00* Test Item Value Reference Range Interpretation Comme nts AB HIV 1 2 (test code = ERR85FU) NONREACTIVE NONREACTIVE Done by [employer] 4[employer] Gen HIV Ag/Ab Combo Screen IS CONSENT FORM SIGNED FOR HIV TESTING? YAG HEPATITIS B [id number] 08:37:00* Test Item Value Reference Range Interpretation Comme nts AG HEPATITIS B SURFACE (test code = HBSAG) NONREACTIVE NONREACTIVE IS CONSENT FORM SIGNED FOR HIV TESTING? STANLEY HEPATITIS C [id number] 08:37:00* Test Item Value Reference Range Interpretation Comme nts AB HEPATITIS C (test code = HCVAB) NONREACTIVE SIGNAL TO CUTOFF (test code = CUTOFF) <0.80 IS CONSENT FORM SIGNED FOR HIV TESTING? STANLEY [id number] 08:37:00* Test Item Value Reference Range Interpretation Comme nts AB TREPONEMA (test code = TREPAB) NONREACTIVE NONREACTIVE IS CONSENT FORM SIGNED FOR HIV TESTING? STANLEY HIV 1 08:37:00* Test Item Value Reference Range Interpretation Comme nts AB HIV 1 2 (test code = CEA58CT) NONREACTIVE IS CONSENT FORM SIGNED FOR HIV TESTING? YCOMPREHENSIVE METABOLIC [id number] 07:59:00* Test Item Value Reference Range Interpretation [...] ALKP) 188 units/L 46-116 H CBC W/AUTO [id number] 07:42:00* Test Item Value Reference Range Interpretation [...] (test code = PLTMR) NORMAL NORMAL URINALYSIS [id number] 20:14:00* Test Item Value Reference Range Interpretation [...] = MUCU) 3+ NONE SEEN Comments to Driver Trainer: ALCIDES KAMINSKI SAMPLE: CLEAN CATCH
[2024-11-29] MEDS ORDERED: KETOROLAC 30 MG/ML INJ ONE (03:37)
[2024-11-29] MEDS ORDERED: NA CHLORIDE 0.9% 500 ML ONE (03:37)
[2024-11-29] MEDS ORDERED: ONDANSETRON 4 MG/2 ML VIAL ONE (03:37)
[2024-11-29 04:00] LABS: SARS-CoV-2 Antigen CONTROL BLUE LINE VIS/BG OK; SARS-CoV-2 Antigen Rapid Res Negative (Negative)
--- NOTE | 2024-11-29 04:26 | ER ---
Nurse's Notes [facility] Name: Aleena Zhao Age: 24 yrs Sex: Female : 2000 Arrival Date: 11/29/2024 Time: 03:03 Bed 5 Private MD: Diagnosis: Viral infection, unspecified;Influenza due to identified novel influenza A virus Presentation: 11/29 03:16 Chief complaint: Patient states: cough, congestion, body aches, nausea X2 days. lg3 Coronavirus screen: Client denies travel out of the [place] in the last 14 days. Client presents with at least one sign or symptom that may indicate coronavirus-19. Standard/surgical mask placed on the client. Ebola Screen: No symptoms or risks identified at this time. Initial Sepsis Screen: Does the patient meet any 2 criteria? No. Patient's initial sepsis screen is negative. Does the patient have a suspected source of infection? No. Patient's initial sepsis screen is negative. Risk Assessment: Do you want to hurt yourself or someone else? Patient reports no desire to harm self or others. Onset of symptoms was November 28, 2024. 03:16 Method Of Arrival: Ambulatory lg3 03:16 Acuity: AME 4 lg3 Triage Assessment: 03:18 General: Appears in no apparent distress. comfortable, Behavior is calm, cooperative. lg3 Pain: Complains of pain in body aches. EENT: No deficits noted. Reports nasal congestion nasal discharge. Neuro: No deficits noted. [place]ata Agitation-Sedation Scale (RASS): 0 - Alert and Calm Level of Consciousness is awake, alert, obeys commands, Oriented to person, place, time, situation. Cardiovascular: No deficits noted. Denies chest pain, Capillary refill < 3 seconds Clubbing of nail beds is absent JVD is absent Patient's skin is warm and dry. Respiratory: Reports cough that is pain with cough Airway is patent Respiratory effort is even, unlabored, Respiratory pattern is regular, symmetrical, Breath sounds are clear bilaterally. GI: No deficits noted. Abdomen is flat, non-distended, Reports nausea. : No signs and/or symptoms were reported regarding the genitourinary system. Derm: No deficits noted. No signs and/or symptoms reported regarding the dermatologic system. Skin is intact, is healthy with good turgor, Skin is dry, Skin is normal, Skin temperature is warm. Musculoskeletal: No deficits noted. Circulation, motion, and sensation intact. Range of motion: intact in all extremities. 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 - Infectious Disease History:: Denies. - Social history:: Smoking status: Patient denies any tobacco usage or history of. Patient/guardian denies using alcohol, street drugs. Screenin:21 [facility] ED Fall Risk Assessment (Adult) History of falling in the last 3 months, lg3 including since admission No falls in past 3 months (0 pts) Confusion or Disorientation No (0 pts) Intoxicated or Sedated No (0 pts) Impaired Gait No (0 pts) Mobility Assist Device Used No (0 pt) Altered Elimination No (0 pt) Score/Fall Risk Level 0 - 2 = Low Risk Oriented to surroundings, Maintained a safe environment, Educated pt \T\ family on fall prevention, incl call for assistance when getting out of bed, Assessed \T\ reinforced patient's understanding of fall precautions. Abuse screen: Denies threats or abuse. Denies injuries from another. Nutritional screening: No deficits noted. Tuberculosis screening: No symptoms or risk factors identified. Assessment: 03:21 General: see triage assessment. lg3 Vital Signs: 03:16 BP 100 / 67; Pulse 111; Resp 17 S; Temp 97.6(TE); Pulse Ox 99% on R/A; Weight 63.5 kg lg3 (R); Height 5 ft. 3 in. (R); 03:45 BP 99 / 64; Pulse 117; Resp 20 S; Pulse Ox 100% on R/A; Pain 6/10; br2 04:38 BP 98 / 59; Pulse 102; Resp 18 S; Temp 97.1(O); Pulse Ox 100% on R/A; br2 03:16 Body Mass Index 24.80 (63.50 kg, 160.02 cm) lg3 03:45 Pain Scale: Adult br2 ED Course: 03:09 Patient arrived in ED. ec2 03:12 Sean Murphy MD is Attending Physician. ec2 03:18 Triage completed. lg3 03:18 Arm band placed on right wrist. lg3 03:21 Patient has correct armband on for positive identification. lg3 03:21 Patient maintains SpO2 saturation greater than 95% on room air. lg3 03:28 COVID swab sent to lab. Flu and/or RSV swab sent to lab. lg3 03:43 Jenny Kothari, MIKIE is Primary Nurse. br2 03:44 Inserted saline lock: 20 gauge in right antecubital area, using aseptic technique. br2 Blood collected. Flushed with 10 mL NS. 03:48 SARS RAPID Sent. kmf 03:48 Influenza Screen (a \T\ B) Sent. kmf 04:02 Warm blanket given. vk 04:37 No provider procedures requiring assistance completed. IV discontinued, intact, br2 bleeding controlled, No redness/swelling at site. Pressure dressing applied. Administered Medications: 03:43 Drug: Ketorolac IVP 15 mg IVP once Route: IVP; Site: right antecubital; br2 04:15 Follow up: Response: No adverse reaction br2 03:43 Drug: Ondansetron IVP 4 mg IVP once; over 2 minutes Route: IVP; Site: right antecubital;br2 04:15 Follow up: Response: No adverse reaction br2 03:44 Drug: NS 0.9% IV 500 ml 500 ml IV at 1 bolus once; to be given as a bolus over 30 br2 minutes Volume: 500 ml; Route: IV; Rate: 1 bolus; Site: right antecubital; 04:20 Follow up: Response: No adverse reaction; IV Status: Completed infusion; IV Intake: br2 500ml 04:33 Drug: Oseltamivir PO 75 mg PO once Route: PO; bm8 04:39 Follow up: Response: Medication administered at discharge. br2 Medication: 04:37 VIS not applicable for this client. br2 Intake: 04:20 IV: 500ml; Total: 500ml. br2 Outcome: 04:25 Discharge ordered by MD. ec2 04:37 Discharged to home ambulatory, br2 04:37 Condition: good 04:37 Discharge instructions given to patient, Instructed on discharge instructions, follow up and referral plans. medication usage, Demonstrated understanding of instructions, follow-up care, medications, Prescriptions given X 2 04:39 Patient left the ED. br2 Signatures: Connie Springer RN RN lg3 Sean Murphy MD MD ec2 Aracelis Os[facility] Jennifer Haskins Brad, RN RN bm8 Jenny Kothari RN RN br2
--- NOTE | 2024-11-29 04:26 | EDPHYS ---
Physician Documentation [facility] Name: Aleena Zhao Age: 24 yrs Sex: Female : 2000 Arrival Date: 11/29/2024 Time: 03:03 Bed 5 Private MD: ED Physician Sean Murphy HPI: 11/29 03:32 This 24 yrs old Female presents to ER via Ambulatory with complaints of Flu ec2 Symptoms. 03:32 Patient arrives today for URI symptoms. Patient with known sick contacts. Patient ec2 having cough congestion, body aches, decreased p.o. intake, nausea, vomiting, diarrhea.. [employer]: 03:18 LMP 11/03/2024, unknown lg3 Historical: - Allergies: 03:18 No Known Allergies; lg3 - Home Meds: 03:18 monjaro [Active]; lg3 - PMHx: 03:18 Asthma; Endometrosis; PCOS; Diabetes mellitus; lg3 - PSHx: 03:18 ovarian cyst; lg3 - Immunization history:: Adult Immunizations up to date. - Infectious Disease History:: Denies. - Social history:: Smoking status: Patient denies any tobacco usage or history of. Patient/guardian denies using alcohol, street drugs. ROS: 03:32 Constitutional: as per hpi ec2 Exam: 03:32 Constitutional: GEN: NAD Head: atraumatic Eyes: EOMI Ears: External ears are ec2 normal. CV: Tachycardia LUNGS: no respiratory distress ABD: non-distended SKIN: no evidence of rashes MSK: no evidence of trauma Vital Signs: 03:16 BP 100 / 67; Pulse 111; Resp 17 S; Temp 97.6(TE); Pulse Ox 99% on R/A; Weight 63.5 kg lg3 (R); Height 5 ft. 3 in. (R); 03:45 BP 99 / 64; Pulse 117; Resp 20 S; Pulse Ox 100% on R/A; Pain 6/10; br2 04:38 BP 98 / 59; Pulse 102; Resp 18 S; Temp 97.1(O); Pulse Ox 100% on R/A; br2 03:16 Body Mass Index 24.80 (63.50 kg, 160.02 cm) lg3 03:45 Pain Scale: Adult br2 MDM: 03:18 Medical Screening Exam initiated ec2 03:32 Data reviewed: vital signs, nurses notes. ED course: Patient arrives today with upper ec2 respiratory symptoms looking for symptomatic relief. Examination is revealing for slight tachycardia otherwise well-appearing nontoxic individual. Will treat the patient's symptoms. Suspect viral infection.. 11/29 03:31 Order name: Influenza Screen (a \T\ B); Complete Time: 04:01 ec2 11/29 03:31 Order name: SARS RAPID; Complete Time: 04:01 ec2 11/29 03:30 Order name: IV ec2 Administered Medications: 03:43 Drug: Ketorolac IVP 15 mg IVP once Route: IVP; Site: right antecubital; br2 04:15 Follow up: Response: No adverse reaction br2 03:43 Drug: Ondansetron IVP 4 mg IVP once; over 2 minutes Route: IVP; Site: right antecubital;br2 04:15 Follow up: Response: No adverse reaction br2 03:44 Drug: NS 0.9% IV 500 ml 500 ml IV at 1 bolus once; to be given as a bolus over 30 br2 minutes Volume: 500 ml; Route: IV; Rate: 1 bolus; Site: right antecubital; 04:20 Follow up: Response: No adverse reaction; IV Status: Completed infusion; IV Intake: br2 500ml 04:33 Drug: Oseltamivir PO 75 mg PO once Route: PO; bm8 04:39 Follow up: Response: Medication administered at discharge. br2 Disposition Summary: 11/29/24 04:25 Discharge Ordered Notes: Location: Home ec2 Condition: Stable ec2 Diagnosis - Viral infection, unspecified ec2 - Influenza due to identified novel influenza A virus ec2 Followup: ec2 - With: Private Physician - When: - Reason: Re-evaluation by your physician Discharge Instructions: - Discharge Summary Sheet ec2 - Viral Illness, Adult ec2 Forms: - Work release form ec2 - Medication Reconciliation Form ec2 - Antibiotic Education ec2 - Prescription Opioid Use ec2 - Patient Portal Instructions ec2 - Leadership Thank You Letter ec2 Prescriptions: - Zofran 4 mg Oral Tablet - take 1 tablet ORAL route every 12 hours As needed; 20 tablet; Refills: 0, ec2 Product Selection Permitted - Tamiflu 75 mg Oral capsule - take 1 tablet ORAL route every 12 hours for 5 days; 10 tablet; Refills: 0, ec2 Product Selection Permitted Signatures: Dispatcher [employer] Connie Schreiber, RN RN lg3 Sean Murphy MD MD ec2 Prasanna Vines RN RN bm8 Jenny Kothari RN RN br2
[2024-11-29] MEDS ORDERED: OSELTAMIVIR 75 MG CAP PO ONE (04:28)
[2024-11-29 09:25] VITALS: BP 98/59; TEMP 97.1; O2SAT 100
== END 2024-11-29 04:39 | disposition home or self-care (01) ==
LOC: ER 03:03
DX: J09.X2 Influenza due to identified novel influenza A virus with other respiratory manifestations (principal); B34.9 Viral infection, unspecified; E11.9 Type 2 diabetes mellitus without complications; J45.909 Unspecified asthma, uncomplicated; Z11.52 Encounter for screening for COVID-19
CPT/HCPCS: 96361; 36415; 87804 ×2; 96375; 96374; 99284; 87811; J2405; J7040